=== PATIENT | female | born 1965 | race Caucasian/White ===

== ENCOUNTER 2020-10-15 06:52 | Outpatient (REF) | payer OTHER, SELFPAY ==
[2020-10-15 11:58] LABS: Anion Gap 13 (12-20); Blood Urea Nitrogen 13 mg/dL (9-16); Calcium 9.2 mg/dL (8.4-10.2); Carbon Dioxide 24 mmol/L (22-29); Chloride 107 mmol/L (96-108); Cholesterol 169 mg/dL; Estimated Glomerular Filt Rate > 60; Glucose Fasting 165 mg/dL (60-99); HDL Cholesterol 34 mg/dL; LDL Cholesterol Calculated 90 mg/dl; Potassium 4.1 mmol/l (3.3-5.1); Sodium 140 mmol/L (135-145); Triglycerides 226 mg/dL
[2020-10-15 13:06] LABS: Microalbum/Creatinine Ratio Ur 14.8 ug/mg cr
== END 2020-10-15 06:53 | disposition home or self-care (01) ==
LOC: HO.HMGCLDS 06:52
PROVIDERS: PCP Nurse Practitioner Family; Visit Provider Nurse Practitioner Family
DX: E11.9 Type 2 diabetes mellitus without complications (principal); Z13.29 Encounter for screening for other suspected endocrine disorder
CPT/HCPCS: 36415; 80048; 80061; 82043; 84443

== ENCOUNTER 2020-11-03 | Outpatient (REF) | payer OTHER, SELFPAY | END 2020-11-03 00:01 | disposition home or self-care (01) | LOC: HO.LNP | PROVIDERS: Visit Provider Nurse Practitioner Family | DX: R35.0 Frequency of micturition (principal) | CPT/HCPCS: 87086 ==

== ENCOUNTER 2021-05-06 09:15 | Outpatient (REF) | payer OTHER, SELFPAY ==
[2021-05-06 11:14] LABS: MANUAL DIFF FLAG NO
[2021-05-06 11:25] LABS: Basophils Absolute Auto 0.1 X10*3/uL (0.0-0.2); Basophils Percent Auto 0.9 % (0-2); Eosinophils Absolute Auto 0.2 X10*3/uL (0.0-0.4); Eosinophils Percent Auto 2.2 % (0-4); Hemoglobin 14.5 g/dl (12.0-16.0); Imm Gran Abs Auto 0.02 X10*3/uL (0.00-0.03); Imm Gran Pct Auto 0.3 % (0.0-0.4); Lymphocytes Absolute Auto 2.5 X10*3/uL (1.2-4.9); Lymphocytes Percent Auto 37.3 % (20-40); Mean Corpuscular Hemoglobin 29.3 pg (27.0-33.0); Mean Corpuscular Volume 88.9 fL (80-98); Mean Platelet Volume 9.9 fL (9.4-12.3); Monocytes Absolute Auto 0.5 X10*3/uL (0.1-1.2); Monocytes Percent Auto 7.4 % (2-11); Neutrophils Absolute Auto 3.5 X10*3/uL (2.0-8.3); Neutrophils Percent Auto 51.9 % (45-73); Platelet Count 238 X10*3/uL (160-400); Red Blood Count 4.95 X10*6/uL (4.20-5.50); Red Cell Distribution Width 12.6 % (11.0-16.0); White Blood Count 6.8 X10*3/uL (4.8-10.8)
[2021-05-06 11:47] LABS: Alanine Aminotransferase 40 U/L (0-31); Albumin Level 4.5 g/dL (3.5-5.0); Alkaline Phosphatase 79 U/L (39-117); Anion Gap 13 (12-20); Aspartate Amino Transferase 28 U/L (5-31); Bilirubin Total 0.5 mg/dL (0.0-1.0); Blood Urea Nitrogen 13 mg/dL (9-16); Calcium 9.8 mg/dL (8.4-10.2); Carbon Dioxide 23 mmol/L (22-29); Chloride 107 mmol/L (96-108); Cholesterol 203 mg/dL; Estimated Glomerular Filt Rate > 60; Glucose Fasting 136 mg/dL (60-99); HDL Cholesterol 34 mg/dL; LDL Cholesterol Calculated 108 mg/dl; Potassium 4.2 mmol/L (3.3-5.1); Sodium 139 mmol/L (135-145); Total Protein 7.7 g/dL (6.5-8.0); Triglycerides 305 mg/dL
[2021-05-06 11:55] LABS: Estimated Average Glucose 180 mg/dL; Hemoglobin A1c % 7.9 %
== END 2021-05-06 09:16 | disposition home or self-care (01) ==
LOC: HO.HMGCLDS 09:15
PROVIDERS: PCP Nurse Practitioner Family; Visit Provider Nurse Practitioner Family
DX: M54.2 Cervicalgia (principal); E11.9 Type 2 diabetes mellitus without complications; E78.1 Pure hyperglyceridemia
CPT/HCPCS: 36415; 80053; 80061; 83036; 85025

== ENCOUNTER 2021-05-19 07:46 | Outpatient (REF) | payer OTHER, SELFPAY ==
--- NOTE | ~2021-05-19 | CT_ITS ---
EXAMINATION: CT SOFT TISSUE NECK WITH CONTRAST CLINICAL INFORMATION: 55-year-old with headache, unspecified. COMPARISON: None. TECHNIQUE: Following the intravenous administration of 100 mL of Omnipaque 350 intravenous contrast, helical imaging was performed in the axial plane with generation of coronal and sagittal reformatted images. This CT examination was performed using dose optimization techniques as appropriate, variously including the following: *Automated exposure control *Adjustment of mA and/or kV according to patient size (this includes techniques or standardized protocols for targeted exams where dose is matched to indication/reason for exam; i.e. extremities or head) *Use of iterative reconstruction technique DLP: 404.00 mGy-cm. FINDINGS: Skull Base: The visualized intracranial structures are grossly unremarkable in appearance within the limitations of the study. The bony skull base appears intact. Mastoids and middle ear cavities are unopacified. Paranasal sinuses are unopacified. Suprahyoid Neck: Nasopharyngeal soft tissues, mechanic sound technician and parapharyngeal spaces appear within normal limits. Dental amalgam artifact partially obscures evaluation of the oral cavity and tongue. The base of the tongue and floor of the mouth are otherwise within normal limits. The major salivary glands appear within normal limits. There are small, nonpathologic-appearing bilateral intraparotid lymph nodes with fatty alina. There are multiple nonenlarged bilateral submandibular space and submental space lymph nodes as well as bilateral suprahyoid IJ chain lymph nodes. One lymph node in the right suprahyoid IJ chain appears mildly prominent in size in long axis but not in short axis. The labral tonsils are slightly asymmetric to the left with otherwise normal enhancement. The epiglottis appears within normal limits. There is a mildly enlarged posterior cervical lymph node on the left at the C2-C3 level. Infrahyoid Neck: The hypopharynx, larynx and thyroid gland appear within normal limits. There are multiple very small, nonenlarged bilateral IJ chain lymph nodes. There is a 1.1 x 0.8 cm level 5B lymph node on the left. Adjacent to this is a 1.1 x 0.6 cm level 5B lymph node. There is a 1.3 x 1.0 cm enlarged lymph node at level 5A on the right. Upper Chest: Visualized mediastinal structures are grossly unremarkable. Visualized lung parenchyma is grossly unremarkable. Skeletal: There is lordotic reversal at C5-C6 with multilevel cervical thoracic DDD and spondylosis. Other Comments: None. CT/CT soft tissue neck w con IMPRESSION: 1. Scattered mildly enlarged bilateral cervical lymph nodes at the suprahyoid and infrahyoid levels as described above of indeterminate significance. Recommend clinical follow-up and follow-up CT of the neck to reassess at a clinically appropriate interval. Differential diagnostic considerations include reactive inflammatory, infectious and neoplastic etiologies. 2. No focal soft tissue mass or enhancing primary lesion. 3. Skeletal findings as discussed above.
[2021-05-19] MEDS: iohexoL 350 MG/ML 100 ML INFUS..BTL IV (09:41)
== END 2021-05-19 07:47 | disposition home or self-care (01) ==
LOC: HO.CT 07:46
PROVIDERS: Visit Provider Nurse Practitioner Family
DX: R51.9 Headache, unspecified (principal)
CPT/HCPCS: 70491; Q9967

== ENCOUNTER 2022-01-05 06:42 | Outpatient (REF) | payer OTHER, SELFPAY ==
[2022-01-05 11:29] LABS: MANUAL DIFF FLAG NO
[2022-01-05 11:36] LABS: Appearance Urine CLEAR; Color Urine YELLOW; Glucose Urine UA >=1000 MG/DL (NEG); Leukocyte Esterase Urine NEG (NEG); Nitrite Urine NEG (NEG); PH 5.5 (5.0-8.0); Urine Blood NEG (NEG); Urine Ketones NEG (NEG); Urine Protein NEG (NEG-TRACE)
[2022-01-05 11:39] LABS: Basophils Absolute Auto 0.1 X10*3/uL (0.0-0.2); Basophils Percent Auto 0.9 % (0-2); Eosinophils Absolute Auto 0.2 X10*3/uL (0.0-0.4); Eosinophils Percent Auto 2.7 % (0-4); Hematocrit 41.7 % (37.0-47.0); Hemoglobin 13.5 g/dl (12.0-16.0); Imm Gran Abs Auto 0.01 X10*3/uL (0.00-0.03); Imm Gran Pct Auto 0.1 % (0.0-0.4); Lymphocytes Absolute Auto 2.8 X10*3/uL (1.2-4.9); Mean Corpuscular HGB Conc 32.4 g/dl (31.0-35.0); Mean Corpuscular Hemoglobin 29.2 pg (27.0-33.0); Mean Corpuscular Volume 90.3 fL (80.0-98.0); Mean Platelet Volume 10.4 fL (9.4-12.3); Monocytes Absolute Auto 0.5 X10*3/uL (0.1-1.2); Monocytes Percent Auto 7.6 % (2-11); Neutrophils Absolute Auto 3.2 x10*3/uL (2.0-8.3); Neutrophils Percent Auto 47.7 % (45-73); Platelet Count 219 X10*3/uL (160-400); Red Blood Count 4.62 X10*6/uL (4.20-5.50); Red Cell Distribution Width 12.9 % (11.0-16.0); White Blood Count 6.7 X10*3/uL (4.8-10.8)
[2022-01-05 11:55] LABS: Alanine Aminotransferase 39 U/L (0-31); Albumin Level 4.1 g/dL (3.5-5.0); Alkaline Phosphatase 78 U/L (39-117); Anion Gap 14 (12-20); Aspartate Amino Transferase 21 U/L (5-31); Bilirubin Total 0.3 mg/dL (0.0-1.0); Blood Urea Nitrogen 16 mg/dL (9-16); Calcium 9.3 mg/dL (8.4-10.2); Carbon Dioxide 22 mmol/L (22-29); Chloride 107 mmol/L (96-108); Cholesterol 186 mg/dL; Estimated Glomerular Filt Rate > 60; Glucose Random 184 mg/dL (60-115); HDL Cholesterol 29 mg/dL; LDL Cholesterol Calculated 98 mg/dl; Lipase 67 U/L (8-78); Potassium 4.2 mmol/L (3.3-5.1); Sodium 139 mmol/L (135-145); Total Protein 7.2 g/dL (6.5-8.0); Triglycerides 296 mg/dL
[2022-01-05 11:59] LABS: RBC Urine 0 /HPF (0); WBC Urine 0-2 /HPF (0-4)
[2022-01-05 12:00] LABS: Bacteria Urine TRACE /LPF; Squamous Epithelial Cell Urine TRACE /LPF
[2022-01-05 12:05] LABS: TSH reflex Free T4 2.67 uIU/mL (0.32-4.0)
== END 2022-01-05 06:43 | disposition home or self-care (01) ==
LOC: HO.HMGCLDS 06:42
PROVIDERS: Visit Provider Nurse Practitioner Family
DX: R10.9 Unspecified abdominal pain (principal); E11.9 Type 2 diabetes mellitus without complications; R35.0 Frequency of micturition
CPT/HCPCS: 36415; 80053; 80061; 81001; 83690; 84443; 85025; 87086

== ENCOUNTER 2022-02-12 08:20 | Outpatient (REF) | payer OTHER, SELFPAY ==
--- NOTE | ~2022-02-12 | US_ITS ---
EXAMINATION: US ABDOMEN COMPLETE CLINICAL INFORMATION: Unspecified abdominal pain. COMPARISON: CT abdomen and pelvis 12/17/2007. TECHNIQUE: Real-time imaging of the abdominal viscera. FINDINGS: PANCREAS: Normal. ABDOMINAL AORTA: The proximal, mid, and distal segments are normal in caliber. INFERIOR VENA CAVA: Visualized portions are normal. LIVER: The liver contour is normal. The liver is enlarged with the right lobe measuring 21.3 cm. The parenchyma is diffusely echogenic compatible with steatosis or other hepatocellular disease. The overall increased echogenicity limits tissue penetration and limits evaluation for small lesions, though none are seen. There is no intrahepatic biliary duct dilatation seen. GALLBLADDER: Surgically absent. COMMON BILE DUCT: The common duct measures up to 1 cm in diameter. RIGHT KIDNEY: At the upper pole of the kidney there is a 1.9 x 1.9 x 2.2 cm cyst. No hydronephrosis or renal calculi. The kidney measures 12.7 cm in maximum dimension. LEFT KIDNEY: Normal. No hydronephrosis. No renal calculi or focal parenchymal lesions. The kidney measures 12.9 cm in maximum dimension. SPLEEN: Normal. The spleen measures 9.5 cm in maximum dimension. FREE FLUID: None. US/US abdomen complete IMPRESSION: There is hepatomegaly and steatosis. Dilated common bile duct measures 1 cm in diameter without obstructing lesion seen and there is no intrahepatic duct dilation. This could represent postcholecystectomy change. Correlation could be made with total bilirubin and alkaline phosphatase and if there is concern for obstruction, further evaluation could be made with MRCP or HIDA.
[2022-02-12 11:14] LABS: Appearance Urine CLEAR; Color Urine STRAW; Glucose Urine UA >=1000 MG/DL (NEG); Leukocyte Esterase Urine NEG (NEG); Nitrite Urine NEG (NEG); PH 5.5 (5.0-8.0); Urine Blood NEG (NEG); Urine Ketones NEG (NEG); Urine Protein NEG (NEG-TRACE)
[2022-02-12 12:27] LABS: Bacteria Urine TRACE /LPF
[2022-02-12 12:28] LABS: RBC Urine 0 /HPF (0); Squamous Epithelial Cell Urine TRACE /LPF; WBC Urine 0-2 /HPF (0-4)
== END 2022-02-12 08:21 | disposition home or self-care (01) ==
LOC: HO.HMGCX 08:20
PROVIDERS: Visit Provider Nurse Practitioner Family
DX: R10.9 Unspecified abdominal pain (principal)
CPT/HCPCS: 76700; 81001

== ENCOUNTER 2022-02-16 06:57 | Outpatient (REF) | payer OTHER, SELFPAY ==
[2022-02-16 11:48] LABS: Appearance Urine HAZY; Color Urine YELLOW; Glucose Urine UA >=1000 MG/DL (NEG); Leukocyte Esterase Urine NEG (NEG); Nitrite Urine NEG (NEG); PH 5.5 (5.0-8.0); Urine Blood NEG (NEG); Urine Ketones NEG (NEG); Urine Protein NEG (NEG-TRACE)
[2022-02-16 11:57] LABS: Alanine Aminotransferase 30 U/L (0-31); Albumin Level 4.1 g/dL (3.5-5.0); Alkaline Phosphatase 79 U/L (39-117); Anion Gap 11 (12-20); Aspartate Amino Transferase 18 U/L (5-31); Bilirubin Direct < 0.2 mg/dL (0.0-0.5); Bilirubin Total 0.4 mg/dL (0.0-1.0); Blood Urea Nitrogen 15 mg/dL (9-16); Calcium 9.5 mg/dL (8.4-10.2); Carbon Dioxide 26 mmol/L (22-29); Chloride 106 mmol/L (96-108); Estimated Glomerular Filt Rate > 60; Glucose Random 177 mg/dL (60-115); Potassium 4.2 mmol/L (3.3-5.1); Sodium 139 mmol/L (135-145); Total Protein 7.2 g/dL (6.5-8.0)
[2022-02-16 12:06] LABS: Squamous Epithelial Cell Urine 2+ /LPF
[2022-02-16 12:07] LABS: WBC Urine 0 /HPF (0-4)
== END 2022-02-16 06:58 | disposition home or self-care (01) ==
LOC: HO.HMGCLDS 06:57
PROVIDERS: Visit Provider Nurse Practitioner Family
DX: R10.9 Unspecified abdominal pain (principal)
CPT/HCPCS: 36415; 80053; 81001; 82248

== ENCOUNTER 2022-06-09 10:27 | Outpatient (REF) | payer OTHER, SELFPAY ==
[2022-06-09 14:04] LABS: MANUAL DIFF FLAG NO
[2022-06-09 14:10] LABS: Appearance Urine Clear; Color Urine Yellow; Glucose Urine UA >=1000 mg/dL (Negative); Leukocyte Esterase Urine Negative (Negative); Nitrite Urine Negative (Negative); Specific Gravity - Urine >= 1.030 (1.005-1.025); Urine Blood Negative (Negative); Urine Ketones Negative (Negative); Urine Protein Negative (Neg-Trace)
[2022-06-09 14:19] LABS: Basophils Absolute Auto 0.1 X10*3/uL (0.0-0.2); Basophils Percent Auto 1.1 % (0-2); Eosinophils Absolute Auto 0.2 X10*3/uL (0.0-0.4); Eosinophils Percent Auto 2.5 % (0-4); Hematocrit 44.1 % (37.0-47.0); Hemoglobin 14.3 g/dl (12.0-16.0); Imm Gran Abs Auto 0.02 X10*3/uL (0.00-0.03); Imm Gran Pct Auto 0.3 % (0.0-0.4); Lymphocytes Absolute Auto 2.4 X10*3/uL (1.2-4.9); Lymphocytes Percent Auto 37.8 % (20-40); Mean Corpuscular HGB Conc 32.4 g/dl (31.0-35.0); Mean Corpuscular Hemoglobin 29.1 pg (27.0-33.0); Mean Corpuscular Volume 89.6 fL (80.0-98.0); Mean Platelet Volume 10.5 fL (9.4-12.3); Monocytes Absolute Auto 0.4 X10*3/uL (0.1-1.2); Neutrophils Absolute Auto 3.4 x10*3/uL (2.0-8.3); Neutrophils Percent Auto 52.3 % (45-73); Platelet Count 218 X10*3/uL (160-400); Red Blood Count 4.92 X10*6/uL (4.20-5.50); Red Cell Distribution Width 12.7 % (11.0-16.0); White Blood Count 6.5 X10*3/uL (4.8-10.8)
[2022-06-09 14:27] LABS: Estimated Average Glucose 192 mg/dL; Hemoglobin A1c % 8.3 %
[2022-06-09 14:34] LABS: Bacteria Urine 1+ (None Seen); Hyaline Casts Urine 0-2 /LPF (0-2); RBC Urine 0-2 /HPF (0-2); Squamous Epithelial Cell Urine 0-2 /HPF (0-2)
[2022-06-09 14:35] LABS: UACC Culture Trigger YES
[2022-06-09 14:39] LABS: Alanine Aminotransferase 39 U/L (0-31); Albumin Level 4.6 g/dL (3.5-5.0); Alkaline Phosphatase 78 U/L (39-117); Anion Gap 16 (12-20); Aspartate Amino Transferase 26 U/L (5-31); Bilirubin Total 0.4 mg/dL (0.0-1.0); Blood Urea Nitrogen 14 mg/dL (9-16); Calcium 9.6 mg/dL (8.4-10.2); Carbon Dioxide 24 mmol/L (22-29); Chloride 106 mmol/L (96-108); Cholesterol 206 mg/dL; Estimated Glomerular Filt Rate > 60; Glucose Fasting 128 mg/dL (60-99); HDL Cholesterol 33 mg/dL; LDL Cholesterol Calculated 108 mg/dl; Potassium 4.2 mmol/L (3.3-5.1); Sodium 142 mmol/L (135-145); Triglycerides 326 mg/dL
[2022-06-09 14:51] LABS: Creatinine Urine 52.16 mg/dL; Microalbumin Urine < 5.0 mg/L
[2022-06-09 14:52] LABS: TSH reflex Free T4 1.34 uIU/mL (0.32-4.0)
== END 2022-06-09 10:28 | disposition home or self-care (01) ==
LOC: HO.HMGCLDS 10:27
PROVIDERS: PCP Nurse Practitioner Family; Visit Provider Nurse Practitioner Family
DX: E11.9 Type 2 diabetes mellitus without complications (principal); R00.2 Palpitations
CPT/HCPCS: 36415; 80053; 80061; 81001; 81003; 82043; 83036; 84443; 85025; 87086

== ENCOUNTER → 2022-07-01 11:20 | Outpatient (REF) | payer OTHER, SELFPAY ==
--- NOTE | 2022-07-01 11:25 | HM_ITS ---
* Total monitoring time 2 days and 23 hours. * Underlying rhythm is sinus with an average ventricular rate of 80/Min. Range 63 to 108/Min. * Very rare supraventricular and ventricular ectopy. * No significant arrhythmias. * Symptoms in patient diary correlate with sinus rhythm. MTDD
== END ==
LOC: HO.CARD 11:20
PROVIDERS: PCP Nurse Practitioner Family; Visit Provider Nurse Practitioner Family
DX: R00.2 Palpitations (principal)
CPT/HCPCS: 93242

== ENCOUNTER 2022-09-23 10:47 | Outpatient (REF) | payer OTHER, SELFPAY ==
--- NOTE | ~2022-09-23 | US_ITS ---
EXAMINATION: US VENOUS ULTRASOUND WITH DOPPLER LOWER EXTREMITY, RIGHT CLINICAL INFORMATION: Right leg pain COMPARISON: None TECHNIQUE: Ultrasound of the deep veins is performed from the hip to the calf with compression sonography and color and pulse Doppler assessment. Spectral analysis with color-flow imaging is performed. FINDINGS: There is normal venous compression and respiratory variation and augmented flow. The visualized common femoral vein, superficial femoral vein, profunda femoral vein, popliteal vein, and the trifurcation region shows no evidence of deep venous thrombosis. There is no significant popliteal fossa cyst. If the patient's symptoms persist, followup ultrasound in 5 days 7 days might be of value to exclude proximal propagation from a non-visualized calf vein. US/US venous duplex LE RT IMPRESSION: No DVT demonstrated in the right lower extremity.
== END 2022-09-23 10:48 | disposition home or self-care (01) ==
LOC: HO.HMGCX 10:47
PROVIDERS: PCP Nurse Practitioner Family; Visit Provider Physician Assistant
DX: M79.604 Pain in right leg (principal)
CPT/HCPCS: 93971

== ENCOUNTER 2023-01-20 10:23 | Outpatient (REF) | payer OTHER, SELFPAY ==
[2023-01-20 14:11] LABS: MANUAL DIFF FLAG NO
[2023-01-20 14:14] LABS: Appearance Urine Clear; Color Urine Yellow; Glucose Urine UA >=1000 mg/dL (Negative); Leukocyte Esterase Urine Negative (Negative); Nitrite Urine Negative (Negative); PH 5.5 (5.0-9.0); Specific Gravity - Urine 1.025 (1.005-1.025); UMIC TRIGGER UACC YES; Urine Blood Negative (Negative); Urine Ketones Negative (Negative); Urine Protein Negative (Neg-Trace)
[2023-01-20 14:19] LABS: Basophils Absolute Auto 0.1 X10*3/uL (0.0-0.2); Basophils Percent Auto 0.7 % (0-2); Eosinophils Absolute Auto 0.2 X10*3/uL (0.0-0.4); Eosinophils Percent Auto 2.3 % (0-4); Hematocrit 43.5 % (37.0-47.0); Imm Gran Abs Auto 0.03 X10*3/uL (0.00-0.03); Imm Gran Pct Auto 0.4 % (0.0-0.4); Lymphocytes Absolute Auto 2.4 X10*3/uL (1.2-4.9); Lymphocytes Percent Auto 35.4 % (20-40); Mean Corpuscular HGB Conc 32.2 g/dl (31.0-35.0); Mean Corpuscular Hemoglobin 29.4 pg (27.0-33.0); Mean Corpuscular Volume 91.4 fL (80.0-98.0); Mean Platelet Volume 10.4 fL (9.4-12.3); Monocytes Absolute Auto 0.4 X10*3/uL (0.1-1.2); Neutrophils Absolute Auto 3.8 x10*3/uL (2.0-8.3); Neutrophils Percent Auto 55.2 % (45-73); Platelet Count 242 X10*3/uL (160-400); Red Blood Count 4.76 X10*6/uL (4.20-5.50); Red Cell Distribution Width 12.5 % (11.0-16.0); White Blood Count 6.9 X10*3/uL (4.8-10.8)
[2023-01-20 14:23] LABS: Bacteria Urine None Seen (None Seen); Hyaline Casts Urine 0-2 /LPF (0-2); RBC Urine 0-2 /HPF (0-2); Squamous Epithelial Cell Urine 0-2 /HPF (0-2); WBC Urine 0-5 /HPF (0-5)
[2023-01-20 14:49] LABS: Estimated Average Glucose 160 mg/dL; Hemoglobin A1c % 7.2 %
[2023-01-20 14:53] LABS: Alanine Aminotransferase 26 U/L (0-31); Albumin Level 4.4 g/dL (3.5-5.0); Alkaline Phosphatase 77 U/L (39-117); Anion Gap 15 (12-20); Aspartate Amino Transferase 19 U/L (5-31); Bilirubin Total 0.5 mg/dL (0.0-1.0); Blood Urea Nitrogen 17 mg/dL (9-16); Calcium 9.5 mg/dL (8.4-10.2); Carbon Dioxide 25 mmol/L (22-29); Chloride 106 mmol/L (96-108); Cholesterol 185 mg/dL; Estimated Glomerular Filt Rate > 60; Glucose Fasting 74 mg/dL (60-99); HDL Cholesterol 32 mg/dL; LDL Cholesterol Calculated 105 mg/dl; Potassium 4.1 mmol/L (3.3-5.1); Sodium 142 mmol/L (135-145); Total Protein 7.3 g/dL (6.5-8.0); Triglycerides 242 mg/dL
[2023-01-20 14:56] LABS: TSH reflex Free T4 1.29 uIU/mL (0.32-4.0)
== END 2023-01-20 10:24 | disposition home or self-care (01) ==
LOC: HO.HMGCLDS 10:23
PROVIDERS: PCP Nurse Practitioner Family; Visit Provider Nurse Practitioner Family
DX: E11.9 Type 2 diabetes mellitus without complications (principal)
CPT/HCPCS: 36415; 80053; 80061; 81001; 83036; 84443; 85025

== ENCOUNTER 2023-05-24 08:14 | Outpatient (AMB) | payer OTHER, SELFPAY ==
[2023-05-24 08:33] VITALS: BP 110/68; PULSE 74; O2SAT 97; BMI 41.5
--- NOTE | 2023-05-24 08:33 | MHC.PC.OV ---
Vital Signs 05/24/23 08:33 Height 5 ft 5 in Weight 249 lb 8 oz BMI 41.5 BP 110/68 Blood Pressure Location Lt brachial Position Sitting Pulse 74 Pulse Source Pulse Oximeter Pulse Oximetry (%) 97 Oxygen Delivery Method Room Air Intake Visit Reasons: 4m follow up Allergies Penicillins [PENICILLINS] Allergy (Intermediate, Verified 05/24/23 08:36) RASH penicillamine Allergy (Unknown, Verified 05/24/23 08:36) Unknown penicillin V Allergy (Unknown, Verified 05/24/23 08:36) hives, rash, diarrhea codeine [CODEINE] Adverse Reaction (Severe, Verified 05/24/23 08:36) STOMACH PAIN Sulfa (Sulfonamide Antibiotics) [SULFA(SULFONAMIDE ANTIBIOTICS)] Adverse Reaction (Intermediate, Verified 05/24/23 08:36) VOMITING Tobacco use date assessed: 05/24/23 Dental Screening Dental Screen Date: 05/24/23 Did you have a dental visit in the last 12 months?: Yes Did you have a dental problem in the last 6 months where you did not have access to dental care?: No Was dental information given to patient?: Patient has dentist HPI 4m follow up HPI Details Pt is a diabetic, on an DARLEEN. A1C in office today is 7.3. Due for microalbumin. Denies polyuria, polydipsia, and neuropathy. Pt denies any signs and symptoms of hypoglycemia and does know how to correct it. Eye exam is up to date. Pt is having a right knee replacement on 06/24. we will increase her long acting insulin from 84 units to 86 units. Explained to pt she can go up, 2 more units, if need be, depending on her sugar values. 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 Rangel Hoover, Jasmina Eller, Jeovanny Rosa and colleagues, with an educational evan from [employer]. Review of Systems Const Reports as per HPI Physical exam (Primary Care) Vital Signs: Last Vital Signs Pulse 74 05/24/23 08:33 BP 110/68 05/24/23 08:33 Pulse Ox 97 05/24/23 08:33 Oxygen Delivery Method Room Air 05/24/23 08:33 BMI result Body Mass Index 41.5 Tobacco/Smoking Status: Tobacco use Status Tobacco use date assessed 05/24/23 05/24/23 08:37 Patient Tobacco Use Status Former Tobacco user 05/24/23 08:37 e-Cigarette/Vaping Use Never Used 05/24/23 08:37 Thrive Assessment: Date of Thrive Assessment Date Thrive assessed 01/20/23 05/24/23 08:37 Const General: cooperative Nutritional Appearance: obese morbidly obese Orientation/consciousness: patient oriented x3 Resp Effort & Inspection: normal respiratory effort Auscultation: clear to auscultation bilaterally Cardio Rate: regular rate Rhythm: regular rhythm Heart sounds: S1 normal heart sound present and S2 normal heart sound present Neuro General: patient oriented x3 Extrem Other: bilat feet: + sensation with use of monofilament Right lower extremity: no edema Left lower extremity: no edema Psych Appearance: grossly normal Mental Status: mental status grossly normal Speech and movement: Normal speech and movement present Affect: normal affect Attitude: cooperative Thought process: Normal thought process present Thought content: Normal thought content present Insight: Good insight present (Psych) Judgement: Good judgement present (Psych) Results AMB Hemoglobin A1c AMB Hemoglobin A1c 7.3 % Last Edit by Lynne Ridley CMA on 05/24/23 08:54 Results Reviewed Results Reviewed: Laboratory Last Values Hgb A1c (Clinic) 7.3 % (4.0-6.0) H 05/24/23 08:51 Assessment and Plan Assessment & Plan (1) Diabetes: Code(s): E11.9 - Type 2 diabetes mellitus without complications Plan The patient agreed to the use of a medical laboratory technical officer for this encounter. Scribed for ADRIANA Damon by Whit Jamaal, medical laboratory technical officer, on 05/24/2023 at 09:00 EST. Orders: Orders Comprehensive [place]. Panel Fast Today E11.9 - Type 2 diabetes mellitus without complications Lipid Panel Today E11.9 - Type 2 diabetes mellitus without complications TSH reflex Free T4 Today E11.9 - Type 2 diabetes mellitus without complications Microalbumin, Random (w Creat) Today E11.9 - Type 2 diabetes mellitus without complications Complete Blood Count Auto Diff Today E11.9 - Type 2 diabetes mellitus without complications UA CC w/rflx Micro + Cult Today E11.9 - Type 2 diabetes mellitus without complications AMB Hemoglobin A1c Today E11.9 - Type 2 diabetes mellitus without complications Coding Level of Care Code Est Pt Level 3 (66214) Diagnoses Diabetes E11.9
== END 2023-05-24 09:16 | disposition home or self-care (01) ==
PROVIDERS: PCP Nurse Practitioner Family; Visit Provider Nurse Practitioner Family
DX: E11.9 Type 2 diabetes mellitus without complications (principal)
CPT/HCPCS: 83036; 99213

== ENCOUNTER 2023-10-22 06:34 | Outpatient (REF) | payer OTHER, SELFPAY ==
[2023-10-22 11:29] LABS: MANUAL DIFF FLAG NO
[2023-10-22 11:36] LABS: Appearance Urine Clear; Color Urine Yellow; Glucose Urine UA >=1000 mg/dL (Negative); Leukocyte Esterase Urine Negative (Negative); Nitrite Urine Negative (Negative); Specific Gravity - Urine >= 1.030 (1.005-1.025); UMIC TRIGGER UACC YES; Urine Blood Negative (Negative); Urine Ketones Negative (Negative); Urine Protein Negative (Neg-Trace)
[2023-10-22 11:41] LABS: Bacteria Urine 1+ (None Seen); Hyaline Casts Urine 0-2 /LPF (0-2); RBC Urine 0-2 /HPF (0-2); Squamous Epithelial Cell Urine 0-2 /HPF (0-2); UACC Culture Trigger YES
[2023-10-22 11:47] LABS: Basophils Absolute Auto 0.1 X10*3/uL (0.0-0.2); Basophils Percent Auto 0.8 % (0-2); Eosinophils Absolute Auto 0.2 X10*3/uL (0.0-0.4); Eosinophils Percent Auto 2.6 % (0-4); Hematocrit 44.2 % (37.0-47.0); Hemoglobin 14.1 g/dl (12.0-16.0); Imm Gran Abs Auto 0.02 X10*3/uL (0.00-0.03); Imm Gran Pct Auto 0.3 % (0.0-0.4); Lymphocytes Absolute Auto 2.2 X10*3/uL (1.2-4.9); Lymphocytes Percent Auto 35.8 % (20-40); Mean Corpuscular HGB Conc 31.9 g/dl (31.0-35.0); Mean Corpuscular Hemoglobin 28.7 pg (27.0-33.0); Mean Corpuscular Volume 89.8 fL (80.0-98.0); Mean Platelet Volume 10.3 fL (9.4-12.3); Monocytes Absolute Auto 0.5 X10*3/uL (0.1-1.2); Monocytes Percent Auto 7.3 % (2-11); Neutrophils Absolute Auto 3.3 x10*3/uL (2.0-8.3); Neutrophils Percent Auto 53.2 % (45-73); Platelet Count 263 X10*3/uL (160-400); Red Blood Count 4.92 X10*6/uL (4.20-5.50); Red Cell Distribution Width 13.3 % (11.0-16.0); White Blood Count 6.3 X10*3/uL (4.8-10.8)
[2023-10-22 12:00] LABS: Creatinine Urine 79.72 mg/dL
[2023-10-22 12:00] LABS: Alanine Aminotransferase 51 U/L (0-31); Albumin Level 4.3 g/dL (3.5-5.0); Alkaline Phosphatase 80 U/L (39-117); Anion Gap 16 (12-20); Aspartate Amino Transferase 45 U/L (5-31); Bilirubin Total 0.4 mg/dL (0.0-1.0); Blood Urea Nitrogen 12 mg/dL (9-16); Calcium 9.7 mg/dL (8.4-10.2); Carbon Dioxide 24 mmol/L (22-29); Chloride 105 mmol/L (96-108); Cholesterol 128 mg/dL (<200); Estimated Glomerular Filt Rate > 60; Glucose Fasting 144 mg/dL (60-99); HDL Cholesterol 32 mg/dL (>40); LDL Cholesterol Calculated 56 mg/dL (<100); Sodium 141 mmol/L (135-145); Total Protein 7.7 g/dL (6.5-8.0); Triglycerides 202 mg/dL (<150)
[2023-10-22 12:02] LABS: WBC Urine 0-5 /HPF (0-5)
[2023-10-22 12:16] LABS: TSH reflex Free T4 1.73 uIU/mL (0.32-4.0)
== END 2023-10-22 06:35 | disposition home or self-care (01) ==
LOC: HO.HMGCLDS 06:34
PROVIDERS: PCP Nurse Practitioner Family; Visit Provider Nurse Practitioner Family
DX: E11.9 Type 2 diabetes mellitus without complications (principal)
CPT/HCPCS: 36415; 80053; 80061; 81001; 82043; 82570; 84443; 85025

== ENCOUNTER 2023-11-22 16:09 | Outpatient (AMB) | payer OTHER, SELFPAY ==
[2023-11-22 16:11] VITALS: BP 112/66; PULSE 72; O2SAT 98; BMI 40.8
--- NOTE | 2023-11-22 16:11 | MHC.PC.OV ---
Vital Signs 11/22/23 16:11 Height 5 ft 5 in Weight 245 lb 2 oz BMI 40.8 BP 112/66 Blood Pressure Location Rt brachial Position Sitting Pulse 72 Pulse Source Pulse Oximeter Pulse Oximetry (%) 98 Oxygen Delivery Method Room Air Intake Visit Reasons: Annual PE Intake Note: pt is here for physical exam Vp Customer Service Required: No Accompanied by: Self / Same As Patient Allergies Penicillins [PENICILLINS] Allergy (Intermediate, Verified 11/22/23 18:46) RASH penicillamine Allergy (Unknown, Verified 11/22/23 18:46) Unknown penicillin V Allergy (Unknown, Verified 11/22/23 18:46) hives, rash, diarrhea codeine [CODEINE] Adverse Reaction (Severe, Verified 11/22/23 18:46) STOMACH PAIN Sulfa (Sulfonamide Antibiotics) [SULFA(SULFONAMIDE ANTIBIOTICS)] Adverse Reaction (Intermediate, Verified 11/22/23 18:46) VOMITING Medication List - Last Reconciled 11/22/23 by GORGE Torrez-MANPREET bempedoic acid-ezetimibe 180-10 mg 1 tab PO DAILY 90 days dulaglutide 4.5 mg (0.5 mL) subcut QWEEK empagliflozin (Jardiance) 25 mg PO DAILY 90 days glipizide ER 10 mg PO QAM insulin degludec 84 units (0.84 mL) subcut DAILY lactobacillus combo no.11 (Probiotic) 1 cap PO DAILY lisinopril 20 mg PO DAILY 90 days metoprolol succinate ER 50 mg PO DAILY Tobacco use date assessed: 11/22/23 Dental Screening Dental Screen Date: 11/22/23 Did you have a dental visit in the last 12 months?: Yes Did you have a dental problem in the last 6 months where you did not have access to dental care?: No Was dental information given to patient?: Patient has dentist HPI Annual PE HPI Details Pt is here for a PE. Will order labs. Colon screen is up to date. Mammo is up to date according to pt. 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 Pt is a diabetic, on an DARLEEN. A1C in office today is 8.2. Microalbumin is up to date. Denies polyuria, polydipsia, and neuropathy. Pt denies any signs and symptoms of hypoglycemia and does know how to correct it. Pt reports that her blood sugar has been ranging from 135-160s in the morning. Will increase tresiba from U-100 84-86 units to U-200 90 units. Eye exam is up to date. encouraged weight loss, multiple weighs to lose weight discussed. [facility] Medical History Rosacea Diabetes Surgical History Status post total right knee replacement Social History Housing: House Alcohol intake: current Alcohol intake frequency: does not drink Patient Tobacco Use Status: Former Tobacco user Years Smoked: 40 years ago e-Cigarette/Vaping Use: Never Used Second Hand Smoke Exposure: No service: No Current occupational status: employed Current occupation: [employer] Current occupational exposures/hazards: No Cognitive needs: No Hearing needs: No Vision needs: No Questionnaire PHQ-9 Over the last 2 weeks, how often have you been bothered by any of the following problems? 1. Little interest or pleasure in doing things: not at all 2. Feeling down, depressed, or hopeless: not at all 3. Trouble falling or staying asleep, or sleeping too much: several days 4. Feeling tired or having little energy: several days 5. Poor appetite or overeating: not at all 6. Feeling bad about yourself - or that you are a failure or have let yourself or your family down: not at all 7. Trouble concentrating on things, such as reading the newspaper or watching television: not at all 8. Moving or speaking so slowly that other people could have noticed. Or the opposite - being so fidgety or restless that you have been moving around a lot more than usual: not at all 9. Thoughts that you would be better off or of hurting yourself in some way: not at all Total score: 2 Depression Screening Interpretation: Negative Depression Screening Done: Yes 74066 - PHQ-9 Billing: Yes Source: Developed by Drs. Rangel Hoover, Jasmina Eller, Jeovanny Rosa and colleagues, with an educational evan from [employer]. Thrive Questionnaire Date Thrive assessed: 02/20/24 I am a: Patient What is your living situation today?: I have a steady place to live Within the past 12 months, did the food you bought not last and you didn't have the money to get more?: Never true Within the past 12 months, did you worry whether your food would run out before you got money to buy more?: Never true Do you have trouble paying for medicines?: No Do you have trouble getting transportation to medical appointments?: No Do you have trouble paying your heating and electricity bill?: No Do you have trouble taking care of your child, family member or friend?: No Do you have trouble with day-to-day activities such as bathing, preparing meals, shopping, managing finances, etc.?: No Are you currently unemployed and looking for a job?: No Are you interested in more education?: No Please select the resources that you would like help with: None Currently or been in a relationship where the following occur: no concerns reported THRIVE Score: 0 AUDIT C Alcohol Use Questionnaire (AUDIT-C) 1. How often do you have a drink containing alcohol?: Monthly or less 2. How many drinks containing alcohol do you have on a typical day when you are drinking?: 1 or 2 3. How often do you have six or more drinks on one occasion?: Never Total Score: 1 Score Reviewed/Action Taken: Yes LYN-7 AMB Questionnaire LYN-7 Date LYN - 7 assessed: 11/22/23 Feeling nervous, anxious, or on edge: 0 = Not at all Not being able to stop or control worryin = Not at all Worrying too much about different things: 0 = Not at all Trouble relaxin = Several days Being so restless that it is hard to sit still: 0 = Not at all Becoming easily annoyed or irritable: 0 = Not at all Feeling afraid as if something awful might happen: 0 = Not at all Total LYN-7 score (0-4 normal; 5-9 mild; 10-14 moderate; 15-21 severe): 1 Source: Developed by Drs. Rangel Hoover, Jasmina Eller, Jeovanny Rosa and colleagues, with an educational evan from [employer]. LYN-7 Assessment Billing LYN-7 Assessment Tool: LYN-7 Assessment 50356 Review of Systems Const Denies chills and Denies fever(s) Eyes Denies blurry vision ENT Denies vertigo, Denies dizziness and Denies sore throat Card Denies chest pain at rest, Denies chest pain with activity, Denies diaphoresis, Denies dyspnea and Denies dyspnea on exertion Resp Denies cough, Denies dyspnea, Denies dyspnea on exertion and Denies wheezing GI Denies abdominal pain, Denies melena, Denies hematochezia, Denies constipation, Denies diarrhea and Denies loose stools Denies hematuria Musc Denies numbness and Denies tingling Skin/Breast Denies lesions Neuro Denies vertigo, Denies dizziness, Denies numbness and Denies tingling Psych Denies anxiety, Denies depression, Denies homicidal ideation, Denies suicidal ideation and Denies other (substance abuse) Aller/Immun Denies wheezing Physical exam (Primary Care) Vital Signs: Last Vital Signs Pulse 72 11/22/23 16:11 BP 112/66 11/22/23 16:11 Pulse Ox 98 11/22/23 16:11 Oxygen Delivery Method Room Air 11/22/23 16:11 BMI result Body Mass Index 40.8 Tobacco/Smoking Status: Tobacco use Status Tobacco use date assessed 11/22/23 11/22/23 16:15 Patient Tobacco Use Status Former Tobacco user 11/22/23 16:15 e-Cigarette/Vaping Use Never Used 11/22/23 16:15 PHQ-9: PHQ-9 Score PHQ-9: Total score 2 11/22/23 16:33 Depression Screening Interpretation: Negative Thrive Assessment: Date of Thrive Assessment Date Thrive assessed 11/22/23 11/22/23 16:15 Currently or been in a relationship where the following occur: no concerns reported Const General: cooperative Nutritional Appearance: obese morbidly obese Orientation/consciousness: patient oriented x3 HENMT Head: Yes normal to inspection, Yes normocephalic and Yes atraumatic Ears: TM's normal bilaterally Eyes General: appearance normal, both eyes and all related structures Alignment and Position: alignment normal and position normal Neck Neck: Yes normal visual inspection and Yes no lymphadenopathy Thyroid: Thyroid normal Resp Effort & Inspection: normal respiratory effort Auscultation: clear to auscultation bilaterally Cardio Rate: regular rate Rhythm: regular rhythm Heart sounds: S1 normal heart sound present, S2 normal heart sound present and no murmurs GI Palpation (GI): Soft to palpation and nontender Auscultation: normal bowel sounds Skin Rashes: no rashes Neuro General: patient oriented x3, moves all extremities, no focal motor deficits and deep tendon reflexes 2+ bilaterally Romberg Test: Negative Extrem Other: bilat feet: + sensation with use of monofilament, feet intact Psych Appearance: grossly normal Mental Status: mental status grossly normal Speech and movement: Normal speech and movement present Affect: normal affect Attitude: cooperative Thought process: Normal thought process present Thought content: Normal thought content present Insight: Good insight present (Psych) Judgement: Good judgement present (Psych) Results AMB Hemoglobin A1c AMB Hemoglobin A1c 8.2 % Last Edit by Christian Crump CMA on 11/22/23 16:38 Results Reviewed Results Reviewed: Laboratory Last Values Hgb A1c (Clinic) 8.2 % (4.0-6.0) H 11/22/23 16:37 Assessment and Plan Assessment & Plan (1) Diabetes: Code(s): E11.9 - Type 2 diabetes mellitus without complications Plan: Labs ordered, weight loss encouraged. went over multiple ways to lose weight (counting calories/macros, intermittent fasting 16-8 hrs, portion sizes) (2) Physical exam: Code(s): Z00.00 - Encounter for general adult medical examination without abnormal findings Plan: Labs ordered Plan The patient agreed to the use of a biomedical equipment technician for this encounter. Scribed for ADRIANA Damon by Whit Hinton biomedical equipment technician, on 11/22/2023 at 16:50 EST. Orders: Orders AMB Hemoglobin A1c Today Z13.9 - Encounter for screening, unspecified Comprehensive [place]. Panel Fast Today E11.9 - Type 2 diabetes mellitus without complications, Z00.00 - Encounter for general adult medical examination without abnormal findings UA CC w/rflx Micro + Cult Today E11.9 - Type 2 diabetes mellitus without complications, Z00.00 - Encounter for general adult medical examination without abnormal findings Lipid Panel Today E11.9 - Type 2 diabetes mellitus without complications, Z00.00 - Encounter for general adult medical examination without abnormal findings Complete Blood Count Auto Diff Today E11.9 - Type 2 diabetes mellitus without complications, Z00.00 - Encounter for general adult medical examination without abnormal findings TSH reflex Free T4 Today E11.9 - Type 2 diabetes mellitus without complications, Z00.00 - Encounter for general adult medical examination without abnormal findings Medications: New insulin degludec (Tresiba FlexTouch U-200 insulin) 90 units (0.45 mL) subcut BEDTIME 90 days 40.5 mL 0RF Discontinued insulin degludec Discontinued Reason: Doctor's Order 84 units (0.84 mL) subcut DAILY 30 mL 5RF E11.9 - Type 2 diabetes mellitus without complications Coding Level of Care Code Est Pt Prev Care 40-64y(45721) Diagnoses Diabetes E11.9 Physical exam Z00.00 Additional Codes LYN-7 Assessment Billing - LYN-7 Assessment Tool: LYN-7 Assessment [id number] ([id number])
== END 2023-11-22 17:19 | disposition home or self-care (01) ==
PROVIDERS: PCP Nurse Practitioner Family; Visit Provider Nurse Practitioner Family
DX: Z00.00 Encounter for general adult medical examination without abnormal findings (principal); E11.9 Type 2 diabetes mellitus without complications
CPT/HCPCS: 83036; 99396

== ENCOUNTER 2024-03-07 19:33 | Emergency (ER) | payer OTHER, SELFPAY ==
--- NOTE | ~2024-03-07 | XR_ITS ---
EXAMINATION: XR FOOT, LEFT CLINICAL INFORMATION: Pain COMPARISON: None available. TECHNIQUE: AP, lateral, and oblique views of the left foot. FINDINGS: Bone alignment is normal. No fracture or dislocation. Small osteophytes at the naviculocuneiform joint. Calcaneal spurs. Mild diffuse soft tissue swelling over the midfoot/metatarsal bones. XR/XR foot LT min 3V IMPRESSION: Soft tissue swelling. Mild degenerative changes at the navicular cuneiform joints. Calcaneal spurs.
--- NOTE | 2024-03-07 19:34 | ED_ITS ---
HPI - General Adult General Chief complaint: Extremity Injury, Lower Stated complaint: Foot pain since yesterday Time Seen by Provider: 03/07/24 23:13 Source: patient, RN notes reviewed and old records reviewed Mode of arrival: ambulatory Limitations: no limitations History of Present Illness ED Provider: Selin HPI narrative: 58 old female presents for evaluation of left foot pain. She states that she was walking yesterday on a flat surface. She states that she did not trip or fall but when she planted on occasion she felt a sharp pain in her left foot around the midfoot The pain is worse with walking and applying weight. The pain does not radiate but stays in the middle of the foot, mostly to the top portion Denies any ankle pain or left leg pain. She denies any history of similar pains. No other complaints or concerns at this time Related Data Home Medications ?Medication ?Instructions ?Recorded ?Confirmed lactobacillus combo no.11 15 1 cap PO DAILY 05/06/21 11/22/23 billion cell sprinkle capsule (Probiotic) glipizide 10 mg tablet, extended 10 mg PO QAM 01/04/22 11/22/23 release 24 hr Previous Rx's ?Medication ?Instructions ?Recorded bempedoic acid 180 mg-ezetimibe 10 1 tab PO DAILY 90 days #90 tabs 11/01/23 mg tablet metoprolol succinate 50 mg 50 mg PO DAILY #90 tabs 11/27/23 tablet,extended release 24 hr empagliflozin 25 mg tablet 25 mg PO DAILY 90 days #90 tabs 12/28/23 (Jardiance) semaglutide 0.25 mg or 0.5 mg (2 0.25 mg (0.368 mL) subcut QWEEK #3 02/07/24 mg/3 mL) subcutaneous pen injector mL (Ozempic) insulin degludec 200 unit/mL (3 98 unit (0.49 mL) subcut BEDTIME 02/09/24 mL) subcutaneous pen (Tresiba #45 mL FlexTouch U-200 insulin) lisinopril 20 mg tablet 20 mg PO DAILY 90 days #90 tabs 02/21/24 Allergies Allergy/AdvReac Type Severity Reaction Status Date / Time Penicillins [PENICILLINS] Allergy Intermediate RASH Verified 03/07/24 19:36 penicillamine Allergy Unknown Unknown Verified 03/07/24 19:36 penicillin V Allergy Unknown hives, Verified 03/07/24 19:36 rash, diarrhea codeine [CODEINE] AdvReac Severe STOMACH Verified 03/07/24 19:36 PAIN Sulfa (Sulfonamide AdvReac Intermediate VOMITING Verified 03/07/24 19:36 Antibiotics) [SULFA(SULFONAMIDE ANTIBIOTICS)] Review of Systems Constitutional: Constitutional: Denies body ache(s), Denies chills and Denies fever(s) Cardiovascular: Cardiovascular: Denies chest pain and Denies dyspnea Respiratory: Respiratory: Denies cough and Denies dyspnea Musculoskeletal: Musculoskeletal: Reports arthralgias, Reports joint swelling and Reports limited range of motion Integumentary/Breasts: Skin/Breast: Denies erythema PMFSH Past Medical History Medical History Rosacea Diabetes Surgical History Status post total right knee replacement Social History Social History Housing: House Alcohol intake: current Alcohol intake frequency: does not drink Patient Tobacco Use Status: Former Tobacco user Years Smoked: 40 years ago e-Cigarette/Vaping Use: Never Used Second Hand Smoke Exposure: No Advance Directives: No Advance Directives Information Provided: No Do you have a plan to hurt others: No Plan service: No Current occupational status: employed 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 [employer] Current occupational exposures/hazards: No Cognitive needs: No Hearing needs: No Vision needs: No Physical Exam ED Vital Signs: Vital Signs - 24 hr 03/07/24 19:35 03/07/24 22:14 03/07/24 23:44 Temperature 97.4 F 98.4 F 98.2 F Pulse Rate 83 78 77 Respiratory Rate 16 16 18 Blood Pressure 136/91 H 126/61 143/74 H Pulse Oximetry 93 95 93 Oxygen Delivery Method Room Air Room Air Room Air BMI result Body Mass Index 40.4 Const General: healthy appearing, comfortable, no acute distress, alert and awake Nutritional Appearance: well nourished Orientation/consciousness: patient oriented x3 HENMT Head: Yes normocephalic and Yes atraumatic Eyes Eyelids: Yes eyelids normal Conjunctivae: conjunctivae normal Sclerae: sclerae normal Corneas: corneas normal Pupils: Equal, round and reactive pupils present EOM: EOMs intact bilaterally Neck Neck: Yes full ROM Resp Effort & Inspection: normal respiratory effort, able to speak in complete sentences and not labored Skin General skin exam: elasticity normal Neuro General: patient oriented x3 Cranial nerves: Yes Equal, round and reactive pupils present and Yes Bilaterally intact EOM present Cognition (Neuro): normal cognition Extrem Other: Patient has mild edema to the dorsal surface of the left midfoot. No erythema, no ecchymosis. No palpable deformities. There is no calf tenderness, no Achilles tenderness. Course Course Course Narrative: This is a rapid medical exam performed by Todd Buck NP: Additional HPI, ROS, PE not included below will be deferred to primary provider. Patient is a 58-year-old female presenting to the ED with complaint of pain across top of left foot since yesterday afternoon. Began yesterday afternoon, denies injury. Has not taken any OTC medications for her sxs. Plan: xray Medical Decision Making Medical Decision Making MDM Narrative: 58-year-old female presents for evaluation left foot pain. She denies any falls but did report stepping on her left foot and feeling a sharp pain all the sudden. X-rays negative for fracture. She may have a foot sprain. There is no evidence to suggest cellulitis or infectious process. She has no calf tenderness or swelling to suggest DVT. Differential Diagnosis Differential Diagnoses: The differential diagnosis associated with the presentation includes Foot sprain Foot fracture Lisfranc fracture Contusion Independent Interpretation I performed an independent interpretation of an: Plain X-Ray Interpretation: No acute fracture of the left foot Radiology Impression Discussion of test interpretation with radiology: I have reviewed the radiologist's reading. Radiologist Impression: XR/XR foot LT min 3V IMPRESSION: Soft tissue swelling. Mild degenerative changes at the navicular cuneiform joints. Calcaneal spurs. Discharge Plan Discharge Clinical Impression: Acute pain of left foot Patient Disposition: Home, Self-Care Instructions: Arthralgia (ED) Additional Instructions: Your x-ray showed mild arthritis and swelling in the foot but no fractures Use ibuprofen/Tylenol for pain Elevate the leg above your heart while resting You may apply ice every 4 hours for 10-15 minutes Follow-up with your primary doctor Return for new or worsening symptoms Prescriptions: No Action bempedoic acid-ezetimibe 180-10 mg tablet 1 tab PO DAILY 90 Days Qty: 90 1RF metoprolol succinate 50 mg tablet extended release 24 hr 50 mg PO DAILY Qty: 90 1RF Jardiance 25 mg tablet 25 mg PO DAILY 90 Days Qty: 90 1RF Ozempic 0.25 mg or 0.5 mg (2 mg/3 mL) pen injector 0.25 mg subcut QWEEK Qty: 3 0RF Rx Instructions: for 4 weeks insulin degludec [Tresiba FlexTouch U-200] 200 unit/mL (3 mL) insulin pen 98 unit subcut BEDTIME Qty: 45 0RF lisinopril 20 mg tablet 20 mg PO DAILY 90 Days Qty: 90 1RF Probiotic 15 billion cell capsule, sprinkle 1 cap PO DAILY Rx Instructions: do not crush/chew/cut; swallow whole OR may open and sprinkle in cold drink/food glipizide 10 mg tablet extended release 24hr 10 mg PO QAM Interventions: ED Discharge Assessment Last Done: 03/07/24 23:44 Discharge Date/Time: 03/07/24 23:47 Print Language: Moldovan
[2024-03-07 19:35] VITALS: BP 136/91; PULSE 83; RESP 16; TEMP 36.3; O2SAT 93; BMI 40.4
[2024-03-07 22:14] VITALS: BP 126/61; PULSE 78; RESP 16; TEMP 36.9; O2SAT 95
[2024-03-07 23:44] VITALS: BP 143/74; PULSE 77; RESP 18; TEMP 36.8; O2SAT 93
== END 2024-03-07 23:47 | disposition home or self-care (01) ==
PROVIDERS: Emergency Provider Emergency Medicine Emergency Medical Services; PCP Nurse Practitioner Family
DX: M79.672 Pain in left foot (principal)
CPT/HCPCS: 73630; 99283

== ENCOUNTER 2024-03-09 06:20 | Outpatient (REF) | payer OTHER, SELFPAY ==
[2024-03-09 10:36] LABS: Appearance Urine Clear; Color Urine Yellow; Glucose Urine UA >=1000 mg/dL (Negative); Leukocyte Esterase Urine Negative (Negative); Nitrite Urine Negative (Negative); PH 5.5 (5.0-9.0); Specific Gravity - Urine >= 1.030 (1.005-1.025); UMIC TRIGGER UACC YES; Urine Blood Negative (Negative); Urine Ketones Negative (Negative); Urine Protein Negative (Neg-Trace)
[2024-03-09 10:43] LABS: Bacteria Urine None Seen (None Seen); Hyaline Casts Urine 0-2 /LPF (0-2); RBC Urine 0-2 /HPF (0-2); Squamous Epithelial Cell Urine 0-2 /HPF (0-2); WBC Urine 0-5 /HPF (0-5)
[2024-03-09 10:44] LABS: MANUAL DIFF FLAG NO
[2024-03-09 11:00] LABS: Basophils Absolute Auto 0.1 X10*3/uL (0.0-0.2); Basophils Percent Auto 0.9 % (0-2); Eosinophils Absolute Auto 0.2 X10*3/uL (0.0-0.4); Eosinophils Percent Auto 2.7 % (0-4); Hematocrit 43.1 % (37.0-47.0); Hemoglobin 14.1 g/dl (12.0-16.0); Imm Gran Abs Auto 0.03 X10*3/uL (0.00-0.03); Imm Gran Pct Auto 0.4 % (0.0-0.4); Lymphocytes Absolute Auto 2.2 X10*3/uL (1.2-4.9); Lymphocytes Percent Auto 32.9 % (20-40); Mean Corpuscular HGB Conc 32.7 g/dl (31.0-35.0); Mean Corpuscular Hemoglobin 29.6 pg (27.0-33.0); Mean Corpuscular Volume 90.4 fL (80.0-98.0); Mean Platelet Volume 10.6 fL (9.4-12.3); Monocytes Absolute Auto 0.5 X10*3/uL (0.1-1.2); Monocytes Percent Auto 7.6 % (2-11); Neutrophils Absolute Auto 3.8 x10*3/uL (2.0-8.3); Neutrophils Percent Auto 55.5 % (45-73); Platelet Count 229 X10*3/uL (160-400); Red Blood Count 4.77 X10*6/uL (4.20-5.50); Red Cell Distribution Width 12.8 % (11.0-16.0); White Blood Count 6.8 X10*3/uL (4.8-10.8)
[2024-03-09 11:14] LABS: Alanine Aminotransferase 35 U/L (0-31); Albumin Level 4.2 g/dL (3.5-5.0); Alkaline Phosphatase 87 U/L (39-117); Anion Gap 15 (12-20); Aspartate Amino Transferase 30 U/L (5-31); Bilirubin Total 0.3 mg/dL (0.0-1.0); Blood Urea Nitrogen 16 mg/dL (9-16); Calcium 9.4 mg/dL (8.4-10.2); Carbon Dioxide 21 mmol/L (22-29); Chloride 109 mmol/L (96-108); Cholesterol 133 mg/dL (<200); Estimated Glomerular Filt Rate > 60; Glucose Fasting 205 mg/dL (60-99); HDL Cholesterol 28 mg/dL (>40); LDL Cholesterol Calculated 52 mg/dL (<100); Potassium 3.9 mmol/L (3.3-5.1); Sodium 141 mmol/L (135-145); Total Protein 7.3 g/dL (6.5-8.0); Triglycerides 267 mg/dL (<150)
[2024-03-09 11:20] LABS: TSH reflex Free T4 1.85 uIU/mL (0.32-4.0)
== END 2024-03-09 06:21 | disposition home or self-care (01) ==
LOC: HO.HMGCLDS 06:20
PROVIDERS: PCP Nurse Practitioner Family; Visit Provider Nurse Practitioner Family
DX: Z00.00 Encounter for general adult medical examination without abnormal findings (principal); E11.9 Type 2 diabetes mellitus without complications
CPT/HCPCS: 36415; 80053; 80061; 81001; 84443; 85025

== ENCOUNTER 2024-03-15 14:53 | Outpatient (AMB) | payer OTHER, SELFPAY ==
--- NOTE | 2024-03-15 14:56 | MHC.PC.OV ---
Vital Signs 03/15/24 14:59 Height 5 ft 5 in Weight 240 lb BMI 39.9 BP 104/60 Blood Pressure Location Rt brachial Position Sitting Pulse 83 Pulse Source Pulse Oximeter Pulse Oximetry (%) 98 Oxygen Delivery Method Room Air Intake Visit Reasons: 3 month follow up Intake Note: Patient here for diabetes f/u. Allergies Penicillins [PENICILLINS] Allergy (Intermediate, Verified 03/15/24 16:30) RASH penicillamine Allergy (Unknown, Verified 03/15/24 16:30) Unknown penicillin V Allergy (Unknown, Verified 03/15/24 16:30) hives, rash, diarrhea codeine [CODEINE] Adverse Reaction (Severe, Verified 03/15/24 16:30) STOMACH PAIN Sulfa (Sulfonamide Antibiotics) [SULFA(SULFONAMIDE ANTIBIOTICS)] Adverse Reaction (Intermediate, Verified 03/15/24 16:30) VOMITING Tobacco use date assessed: 11/22/23 Dental Screening Dental Screen Date: 11/22/23 HPI 3 month follow up HPI Details Pt is a diabetic, on an DARLEEN. A1C in office today is 9.3. Microalbumin is up to date. Denies polyuria, polydipsia, and neuropathy. Pt denies any signs and symptoms of hypoglycemia and does know how to correct it. Pt reports that her fasting blood sugar has been over 200. Will stop ozempic and start mounjaro 2.5mg. Will also increase tresiba u-200 from 98 to 110 units. Pt will contact me in the near future if her blood sugar remains above 200. Pt reports that since starting bempedoic acid-ezetimibe her blood sugars have been elevated. Will have pt stop this med right now. 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 88413 - PHQ-9 Billing: Patient declined-do not bill Source: Developed by Drs. Rangel Hoover, Jeovanny Winslow and colleagues, with an educational evan from [employer]. Thrive Questionnaire Date Thrive assessed: 11/22/23 LYN-7 AMB Questionnaire LYN-7 Date LYN - 7 assessed: 11/22/23 Source: Developed by Drs. Rangel Hoover, Jasmina Eller, Jeovanny Rosa and colleagues, with an educational evan from [employer]. LYN-7 Assessment Billing LYN-7 Assessment Tool: pt declined-do not bill Review of Systems Const Reports as per HPI Physical exam (Primary Care) Vital Signs: Last Vital Signs Pulse 83 03/15/24 14:59 BP 104/60 03/15/24 14:59 Pulse Ox 98 03/15/24 14:59 Oxygen Delivery Method Room Air 03/15/24 14:59 BMI result Body Mass Index 39.9 Tobacco/Smoking Status: Tobacco use Status Tobacco use date assessed 11/22/23 03/15/24 14:58 Patient Tobacco Use Status Former Tobacco user 03/15/24 14:58 e-Cigarette/Vaping Use Never Used 03/15/24 14:58 Thrive Assessment: Date of Thrive Assessment Date Thrive assessed 11/22/23 03/15/24 14:58 Const General: cooperative Nutritional Appearance: obese Orientation/consciousness: patient oriented x3 Resp Effort & Inspection: normal respiratory effort Auscultation: clear to auscultation bilaterally Cardio Rate: regular rate Rhythm: regular rhythm Heart sounds: S1 normal heart sound present and S2 normal heart sound present Neuro General: patient oriented x3 Extrem Other: + sensation with use of monofilament to right foot, boot on LLE Psych Appearance: grossly normal Mental Status: mental status grossly normal Speech and movement: Normal speech and movement present Thought process: Normal thought process present Thought content: Normal thought content present Insight: Good insight present (Psych) Judgement: Good judgement present (Psych) Results AMB Hemoglobin A1c AMB Hemoglobin A1c 9.3 % Last Edit by Rema-Estela Dodd, CCMA on 03/15/24 15:17 Results Reviewed Results Reviewed: Laboratory Last Values Hgb A1c (Clinic) 9.3 % (4.0-6.0) H 03/15/24 15:17 Assessment and Plan Assessment & Plan (1) Diabetes: Code(s): E11.9 - Type 2 diabetes mellitus without complications Plan: stopping ozempic, starting moujaro. increasing tresiba to 110 units Orders: Orders AMB Hemoglobin A1c Today Z13.9 - Encounter for screening, unspecified Medications: New tirzepatide (Mounjaro) 2.5 mg (0.5 mL) subcut QWEEK 2 mL 0RF 4 weeks Coding Level of Care Code Est Pt Level 3 (52960) Diagnoses Diabetes E11.9
[2024-03-15 14:59] VITALS: BP 104/60; PULSE 83; O2SAT 98; BMI 39.9
== END 2024-03-15 15:39 | disposition home or self-care (01) ==
PROVIDERS: PCP Nurse Practitioner Family; Visit Provider Nurse Practitioner Family
DX: E11.9 Type 2 diabetes mellitus without complications (principal)
CPT/HCPCS: 83036; 99213

== ENCOUNTER 2024-06-27 15:15 | Outpatient (AMB) | payer OTHER, SELFPAY ==
[2024-06-27 15:19] VITALS: BP 92/60; PULSE 73; O2SAT 96; BMI 40.8
--- NOTE | 2024-06-27 15:19 | MHC.PC.OV ---
Vital Signs 06/27/24 15:19 Height 5 ft 5 in Weight 245 lb BMI 40.8 BP 92/60 Blood Pressure Location Rt brachial Position Sitting Pulse 73 Pulse Source Pulse Oximeter Pulse Oximetry (%) 96 Oxygen Delivery Method Room Air Intake Visit Reasons: 3 mon f/u Allergies Penicillins [PENICILLINS] Allergy (Intermediate, Verified 06/27/24 15:21) RASH penicillamine Allergy (Unknown, Verified 06/27/24 15:21) Unknown penicillin V Allergy (Unknown, Verified 06/27/24 15:21) hives, rash, diarrhea codeine [CODEINE] Adverse Reaction (Severe, Verified 06/27/24 15:21) STOMACH PAIN Sulfa (Sulfonamide Antibiotics) [SULFA(SULFONAMIDE ANTIBIOTICS)] Adverse Reaction (Intermediate, Verified 06/27/24 15:21) VOMITING Medication List - Last Reconciled 06/27/24 by FLOYD TorrezP- empagliflozin (Jardiance) 25 mg PO DAILY 90 days glipizide ER 10 mg PO QAM insulin degludec (Tresiba FlexTouch U-200 insulin) 98 units (0.49 mL) subcut BEDTIME lactobacillus combo no.11 (Probiotic) 1 cap PO DAILY lisinopril 20 mg PO DAILY 90 days metoprolol succinate ER 50 mg PO DAILY semaglutide (Ozempic) 0.5 mg (0.736 mL) subcut QWEEK Tobacco use date assessed: 06/27/24 Dental Screening Dental Screen Date: 06/27/24 Did you have a dental visit in the last 12 months?: Yes Did you have a dental problem in the last 6 months where you did not have access to dental care?: No Was dental information given to patient?: Patient has dentist HPI 3 mon f/u HPI Details Pt sees endo for diabetes. pt recently tried mounjaro, could not tolerate, now on ozempic, next follow up is at the end of jul.10.3 A1c at the end of april #2 nasal polyp to right nare, following up with ENT for this. Pt does report some sob, sitting up or lying down. EKG was NSR today, denies any CP, dizziness, diaphoresis, N/V, dizziness, blurred vision. Pt denies any wheezing, N/V, blurred vision, dizziness. She does report having some mind racing, stress, ? anxiety component. 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 1. Little interest or pleasure in doing things: not at all 2. Feeling down, depressed, or hopeless: not at all 3. Trouble falling or staying asleep, or sleeping too much: not at all 4. Feeling tired or having little energy: not at all 5. Poor appetite or overeating: not at all 6. Feeling bad about yourself - or that you are a failure or have let yourself or your family down: not at all 7. Trouble concentrating on things, such as reading the newspaper or watching television: not at all 8. Moving or speaking so slowly that other people could have noticed. Or the opposite - being so fidgety or restless that you have been moving around a lot more than usual: not at all 9. Thoughts that you would be better off or of hurting yourself in some way: not at all Total score: 0 Source: Developed by Drs. Rangel Hoover, Jasmina Eller, Jeovanny Rosa and colleagues, with an educational evan from [employer]. Thrive Questionnaire Date Thrive assessed: 06/21/24 I am a: Patient What is your living situation today?: I have a steady place to live Within the past 12 months, did the food you bought not last and you didn't have the money to get more?: Never true Within the past 12 months, did you worry whether your food would run out before you got money to buy more?: Never true Do you have trouble paying for medicines?: No Do you have trouble getting transportation to medical appointments?: No Do you have trouble paying your heating and electricity bill?: No Do you have trouble taking care of your child, family member or friend?: No Do you have trouble with day-to-day activities such as bathing, preparing meals, shopping, managing finances, etc.?: No Are you interested in more education?: No Please select the resources that you would like help with: None Currently or been in a relationship where the following occur: No concerns reported THRIVE Score: 0 AUDIT C Alcohol Use Questionnaire (AUDIT-C) 2. How many drinks containing alcohol do you have on a typical day when you are drinking?: 1 or 2 Total Score: 0 LYN-7 AMB Questionnaire LYN-7 Date LYN - 7 assessed: 11/22/23 Feeling nervous, anxious, or on edge: 0 = Not at all Not being able to stop or control worryin = Not at all Worrying too much about different things: 0 = Not at all Trouble relaxin = Not at all Being so restless that it is hard to sit still: 0 = Not at all Becoming easily annoyed or irritable: 0 = Not at all Feeling afraid as if something awful might happen: 0 = Not at all Total LYN-7 score (0-4 normal; 5-9 mild; 10-14 moderate; 15-21 severe): 0 Source: Developed by Drs. Rangel Hoover, Jasmina Eller, Jeovanny Rosa and colleagues, with an educational evan from [employer]. Physical exam (Primary Care) Vital Signs: Last Vital Signs Pulse 73 06/27/24 15:19 BP 92/60 06/27/24 15:19 Pulse Ox 96 06/27/24 15:19 Oxygen Delivery Method Room Air 06/27/24 15:19 BMI result Body Mass Index 40.8 Tobacco/Smoking Status: Tobacco use Status Tobacco use date assessed 06/27/24 06/27/24 15:22 Patient Tobacco Use Status Former Tobacco user 06/27/24 15:22 e-Cigarette/Vaping Use Never Used 06/27/24 15:22 PHQ-9: PHQ-9 Score PHQ-9: Total score 0 06/27/24 15:22 Thrive Assessment: Date of Thrive Assessment Date Thrive assessed 06/21/24 06/27/24 15:22 Currently or been in a relationship where the following occur: No concerns reported Const General: cooperative Orientation/consciousness: oriented to person Limitations: no limitations Chest Other: no tenderness with palpation Resp Effort & Inspection: normal respiratory effort Auscultation: clear to auscultation bilaterally Cardio Rate: regular rate Rhythm: regular rhythm Heart sounds: S1 normal heart sound present, S2 normal heart sound present and no murmurs Neuro General: oriented to person Psych Appearance: grossly normal Mental Status: mental status grossly normal Speech and movement: Normal speech and movement present Affect: normal affect Attitude: cooperative Thought process: Normal thought process present Thought content: Normal thought content present Insight: Good insight present (Psych) Judgement: Good judgement present (Psych) Assessment and Plan Assessment & Plan (1) SOB (shortness of breath): Code(s): R06.02 - Shortness of breath Plan: Sating normal, patient able to communicate and speak without any signs of shortness of breath or dyspnea. EKG was normal sinus rhythm. Do question anxiety component, will get this CT of chest, check labs. Patient knows to go to the ER/call 911 with any worsening symptoms (2) Diabetes: Code(s): E11.9 - Type 2 diabetes mellitus without complications Orders: Orders CT chest wo IV con Today R06.02 - Shortness of breath TSH reflex Free T4 Today R06.02 - Shortness of breath UA CC w/rflx Micro + Cult Today R06.02 - Shortness of breath D Dimer High Sensitivity Today R06.02 - Shortness of breath Complete Blood Count Auto Diff Today R06.02 - Shortness of breath Comprehensive Met. Panel Today R06.02 - Shortness of breath B Type Natriuretic Peptide Today R06.02 - Shortness of breath AMB EKG-In Office Today R06.02 - Shortness of breath Medications: New semaglutide (Ozempic) 0.5 mg (0.736 mL) subcut QWEEK 3 mL 0RF Discontinued tirzepatide Discontinued Reason: No Longer Medically Relevant 5 mg (0.5 mL) subcut QWEEK 30 days 2.5 mL 1RF Coding Level of Care Code Est Pt Level 3 (76624) Diagnoses SOB (shortness of breath) R06.02 Diabetes E11.9
== END 2024-06-27 16:33 | disposition home or self-care (01) ==
PROVIDERS: PCP Nurse Practitioner Family; Visit Provider Nurse Practitioner Family
DX: R06.02 Shortness of breath (principal); E11.9 Type 2 diabetes mellitus without complications

== ENCOUNTER → 2024-06-27 15:15 | Outpatient (BNVA) | payer OTHER, SELFPAY | PROVIDERS: PCP Nurse Practitioner Family; Visit Provider Nurse Practitioner Family | DX: R06.02 Shortness of breath (principal); E11.9 Type 2 diabetes mellitus without complications | CPT/HCPCS: 96127 ==

== ENCOUNTER 2024-06-29 13:12 | Outpatient (REF) | payer OTHER, SELFPAY ==
--- NOTE | ~2024-06-29 | XR_ITS ---
EXAMINATION: XR CHEST 2 VIEWS CLINICAL INFORMATION: Cough. COMPARISON: Chest radiographs dated 12/01/2007. TECHNIQUE: Frontal and lateral views of the chest were obtained. FINDINGS: The heart, great vessels, pulmonary vasculature and mediastinum are normal. The lungs show no focal infiltrate, effusion or pneumothorax. There is no acute osseous abnormality. XR/XR chest 2V IMPRESSION: No active cardiopulmonary disease. Electronically signed by: Reuben Carrillo MD 08/14/2024 02:35 PM [facility]
== END 2024-06-29 13:13 | disposition home or self-care (01) ==
LOC: HO.HMGCX 13:12
PROVIDERS: PCP Nurse Practitioner Family; Visit Provider Nurse Practitioner Family
DX: R06.02 Shortness of breath (principal)
CPT/HCPCS: 71046

== ENCOUNTER 2024-09-27 15:15 | Outpatient (AMB) | payer OTHER, SELFPAY ==
--- OUTSIDE RECORDS SUMMARY | 2024-09-27 15:18 | XMS_ITS | Patient Health Record ---
Author Organization [facility] Address [address] [place] [address] Care Team Providers Care Account Receivable Clerk Name Role Phone Reuben Fernandes Primary Care Provider Unahilaria gabbi KimJeff Unavailable [phone] Allergies Allergen (clinical drug ingredient) Drug/Non Drug Allergy documented on EMR Reaction Allergy Type Onset Date Status Adhesive Unknown Allergy Active codeine Codeine Unknown Drug Allergy Active morphine Morphine Unknown Drug Allergy Active Penicillin Unknown Drug Allergy Active Substance with sulfonamide structure and antibacterial mechanism of action (substance) Sulfa Antibiotics Unknown Drug Allergy Active Results Component Value Reference Range Notes HEMOGLOBIN A1C (GLYCOHEMOGLO BIN) Reviewed date:11/29/2023 08:22:47 AM Interpretation: Performing Lab: Notes/Report: HEMOGLOBIN A1C % (HH) 8.2 Reason For Referral No Information Medications Medication SIG (Take, Route, Frequency, Duration) Notes Start Date End Date Status Jardiance 25 MG 1 tablet Orally Once a day Active glipiZIDE 10 MG 1 tablet 30 minutes before breakfast Orally Once a day Active Ozempic Active Tresiba Active Nexlizet 180-10 MG 1 tablet Orally Once a day Active Metoprolol Succinate 50 MG 1 capsule Orally Once a day Active Lisinopril 20 MG 1 tablet Orally Once a day Active Walking Boot/Pneumatic As directed Wear Daily for Until further notice Active Trulicity 4.5 MG/0.5ML as directed Subcutaneous Not-Taking Immunizations Vaccine Route Administration Date Status Comme nts Influenza Unknown 03/14/2024 Refused Social History Tobacco Use: Social History Observation Description Date Details (start date - stop date) Former Smoker NA - NA Tobacco Use/Smoking Question Answer Notes Are you a: former smoker Additional Findings: Tobacco Non-User Current no n-smoker Alcohol Screen Question Answer Notes Did you have a drink containing alcohol in the p ast year? No Points 0 Interpretation Negative Tobacco use other than smoking: Question Answer Notes Are you an other tobacco user? No Problems Problem Type SNOMED Code ICD Code Onset Dates Problem Status W/U Status Risk Notes Problem Polyneuropathy due to type 2 diabetes mellitus (266611763) Type 2 diabetes mellitus with diabetic polyneuropathy (E11.42) Active confirmed Vital Signs Blood pressure diastolic 92 mm Hg 03/14/2024 Height 5ft5in in 03/14/2024 Blood pressure systolic 143 mm Hg 03/14/2024 Weight 243 lbs 03/14/2024 BMI 40.43 kg/m2 03/14/2024 Procedures Procedure Date Ordered Date Performed Result Body Sit e 69549-IAFK SKIN LESIONS, OVER 4 11/29/2023 N/A Encounters Encounter Location Date Provider [facility] [address] [place] [address] 11/29/2023 JeffSilva Type 2 diabetes mellitus with diabetic polyneuropathy E11.42 ; 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 ; Skin disease L98.9 ; Pain in left foot M79.672 and Xerosis cutis L85.[address] [address] 03/14/2024 Jeff Kim Pain in left foot M79.672 ; Plantar fascial fibromatosis M72.2 and Sprain of left foot, initial encounter S93.602A [address] [address] 04/11/2024 Jeff Kim Pain in left foot M79.672 ; Plantar fascial fibromatosis M72.2 and Sprain of left foot, initial encounter S93.602A [address] [address] 03/12/2024 Jeff Kim Assessments Encounter Date Diagnosis (ICD Code) Assessment Notes Treatment Notes Treatment Clinical Notes Section Notes 11/29/2023 Type 2 diabetes mellitus with diabetic polyneuropathy (ICD-10 - E11.42) 03/14/2024 Pain in left foot (ICD-10 - M79.672) 03/14/2024 Plantar fascial fibromatosis (ICD-10 - M72.2) 04/11/2024 Pain in left foot (ICD-10 - M79.672) 04/11/2024 Plantar fascial fibromatosis (ICD-10 - M72.2) 04/11/2024 Sprain of left foot, initial encounter (ICD-10 - S93.602A) 03/14/2024 Sprain of left foot, initial encounter (ICD-10 - S93.602A) 11/29/2023 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) 11/29/2023 Skin disease (ICD-10 - L98.9) 11/29/2023 Pain in left foot (ICD-10 - M79.672) 11/29/2023 Xerosis cutis (ICD-10 - L85.3) Plan Of Treatment Pending Test Test Name Order Date 43240-LVTK SKIN LESIONS, OVER 4 11/29/19 24 Next Appt Details Provider Name:Jeff Kim, 11/27/2024 08:15:00 AM, [address] [facility], [address], [place], [address], Insurance Providers Payer Name Payer Address Payer Phone Subscriber Number Group Number Insured Name Patient Relationship to Insured Coverage Start Date Coverage End Date [facility] [address] [place] [address] [phone] [id number] Horacio Meraz Spouse - patient is the spouse of the insured Medical (General) History Medical History History ICD Code covid-19 Back,Hip,and Knee pain Broken bones Measles Mumps Chicken pox Joint implants/screws High blood pressure Hiatal hernia Reflux ( GERD) Sciatica sinusitis Surgical History Surgery Date(Month/Year) knee replacement, right 07/01/23 Gall bladder removal hernia
--- OUTSIDE RECORDS SUMMARY | 2024-09-27 15:18 | XMS_ITS ---
Author Organization [facility] Address [address] [place] [address] Care Team Providers Care Orthodontic Treatment Coordinator Name Role Phone Reuben Fernandes Primary Care Provider Unav Jeff Hua [place] [phone] Medications Medication SIG (Take, Route, Frequency, Duration) Notes Start Date End Date Status Tresiba Active Nexlizet 180-10 MG 1 tablet Orally Once a day Active Metoprolol Succinate 50 MG 1 capsule Orally Once a day Active Walking Boot/Pneumatic As directed Wear Daily for Until further notice Active Trulicity 4.5 MG/0.5ML as directed Subcutaneous Not-Taking Jardiance 25 MG 1 tablet Orally Once a day Active glipiZIDE 10 MG 1 tablet 30 minutes before breakfast Orally Once a day Active Ozempic Active Lisinopril 20 MG 1 tablet Orally Once a day Active Encounters Encounter Location Date Provider Diagnosis [facility] [address] [place] [address] 04/11/2024 Jeff Kim Pain in left foot M79.672 ; Plantar fascial fibromatosis M72.2 and Sprain of left foot, initial encounter S93.602A Assessments Encounter Date Diagnosis (ICD Code) Assessment Notes Treatment Notes Treatment Clinical Notes Section Notes 04/11/2024 Pain in left foot (ICD-10 - M79.672) 04/11/2024 Plantar fascial fibromatosis (ICD-10 - M72.2) 04/11/2024 Sprain of left foot, initial encounter (ICD-10 - S93.602A) Plan Of Treatment Medication Medication Name Sig Start Date Stop Date Notes Walking Boot/Pneumatic As directed Wear Daily for Until further notice Next Appt Details Follow Up: prn, Reason: Provider Name:Jeff Marielena Kim, 11/27/2024 08:15:00 AM, [address], [place], [address], Progress Notes * Odalis MERAZOB: [birth year] (58 yo F)Acc No.[id number]:04/11/2024 Progress Notes Patient:?Annie Meraz Provider:?Jeff Kim DPM :1965???Age:58 Y???Sex:Female D ate:04/11/2024 Address:[address] [place], [place] [id number] Pcp:HOMER Damon Subjective: * Chief Complaints: * ??? * HPI: ???Foot Pain:?Nature:?sharp, aching, tenderness.?Location?Bottom, Midfoot, Left .?Onset/Cause:?unknown.?Aggrevated:?any pressure, standing, walking.?Treatments:?rest, , casting, arch binder.?Quality/Severity?1, scale 1-10.? * Medical History:? * Surgical History:? * Hospitalization/Major Diagno stic Procedure:? * Medications:?TakingOzempic g lipiZIDE 10 MG Tablet 1 tablet 30 minutes before breakfast Orally Once a dayJardiance 25 MG Tablet 1 tablet Orally Once a dayLisinopril 20 MG Tablet 1 tablet Orally Once a dayMetoprolol Succinate 50 MG Capsule ER 24 Hour Sprinkle 1 capsule Orally Once a dayNexlizet 180-10 MG Tablet 1 tablet Orally Once a dayTresiba Walking Boot/Pneumatic As directed Wear DailyTaking Ozempic Taking glipiZIDE 10 MG Tablet 1 tablet 30 minutes before breakfast Orally Once a dayTaking Jardiance 25 MG Tablet 1 tablet Orally Once a dayTaking Lisinopril 20 MG Tablet 1 tablet Orally Once a dayTaking Metoprolol Succinate 50 MG Capsule ER 24 Hour Sprinkle 1 capsule Orally Once a dayTaking Nexlizet 180-10 MG Tablet 1 tablet Orally Once a dayTaking Tresiba Taking Walking Boot/Pneumatic As directed Wear DailyNot-Taking/PRNTrulicity 4.5 MG/0.5ML Solution Pen-injector as directed Subcutaneous Not-Taking/PRN Trulicity 4.5 MG/0.5ML Solution Pen-injector as directed Subcutaneous Objective: * Examination: ???Ophthalmology Referral: ?DIABETES EYE EXAM?General Examination: ?GENERAL APPEARANCE:?pleasant, alert, well nourished, well developed, well hydrated, with good attention to hygene/body habitus, and in no acute distress.?ORIENTED:?person,place, and time.?Neurological: ?SENSORY:?Neurological exam is normal, pain sensation normal, vibration sensation intact, pinprick sensation is normal in the lower extremities, denies, tingling, burning, anesthesia, paresthesia, hyperesthesia, B/L, Neurological exam demonstrates NO?pop plantar of central band of pf left.?TINEL'S COMPRESSION:?Negative tarsal tunnel, kimi pedis, and medial calcaneal nerves B/L.?BABINSKI REFLEX:?absent.?Neuroma Pain: ?PALPATION:?No interspace pain noted on palpation.?Vascular: ?DP PULSES:?2/4, B/L.?PT PULSES:?2/4, B/L.?CAPILLARY FILL TIME:?3 secs. per digit, B/L.?SKIN TEMPERTURE GRADIENT OF THE LOWER EXTERMITIES:?warm to cool, proximal to distal, B/L.?HAIR GROWTH/TEXTURE/ELASTICITY/TURGOR:?normal, B/L.?PIGMENTATION:?normal, B/L.?EDEMA:?no edema.?TELANGECTASIA:?absent.?VARICOSITIES:?absent.?Dermatologic: ?SKIN FINDINGS:?Skin exam reveals normal texture, elasticity, and tugor. There are no masses. The interspaces are clear, B/L .?Orthopedic: ?MUSCLE STRENGTH:?5/5 all groups in a symmetrical fashion , B/L.?GAIT ABNORMALITY:?pronated, abducted, B/L.? Assessment: * Assessment: 1.?Pain in left foot - M79.6 72 (Primary)?2.?Plantar fascial fibromatosis - M72.2?3.?Sprain of left foot, initial encounter - S93.602A? Plan: * Treatment: * Procedure Codes:? * Preventive Medicine:? ??Counseling:?Discussion:?-13: Office or other outpatient visit for the evaluation and management of an established patient, which required a medically appropriate history and/or examination and LOW level of DECISION MAKING for: 1 STABLE ACUTE UNCOMPLICATED PROBLEM, 2 OR MORE MINOR PROBLEMS, OR 1 STABLE CHRONIC PROBLEM, THAT POSE(S) A LOW RISK FOR MORBIDITY/MORTALITY. The visit on the day of the encounter encompassed interpreting the data and educating the patient as to the nature of their condition, treatment options available according to their individual PMH, meds, allergies, and overall health/living conditions, as well as any potential risks or complications that may occur from a failure to adhere to, and participate in, the recommended course of therapy. The discussion included a complete verbal, and/or written explanation of the examination results, any x-rays taken, the proposed diagnosis, and outline of the treatment plan. A schedule for future care needs was also explained. The patient verbalized an understanding of the instructions at this time and agreed to be an active participant in their treatment. If the patient should think of any questions or concerns after the visit, I have encouraged the patient to call the office--pt to continue with supprotive shoegear with comfortable arch support and use arch binder prn; d/c cast boot.? * Follow Up:?prn * Images: * Sign off status: Completed true * Provider:?Jeff Kim DPM Date:? 024 Generated for [place] amezcua/Radha/eTransmitting on:?09/27/2024 03:18 PM EST History and Physical Notes * HPI (History of Present Illness) Category Sub-Category Detail Notes Category Not es Foot Pain Aggrevated: any pressure, standing, walk ing Onset/Cause: unknown Nature: sharp, aching, tende rness Treatments: rest, , casting, arc h binder Quality/Severity 1, scale 1-10 Location Bottom, Midfoot, Lef t Examination Category Sub-Category Detail Notes Category Not es Neuroma Pain PALPATION: No interspace pain noted on palpation Neurological SENSORY: Neurological exa m is normal, pain sensation normal, vibration sensation intact, pinprick sensation is normal in the lower extremities, denies, tingling, burning, anesthesia, paresthesia, hyperesthesia, B/L, Neurological exam demonstrates NO pop plantar of central band of pf left BABINSKI REFLEX: absent TINEL'S COMPRESSION: Negative tarsal juan francisco darnell, kimi pedis, and medial calcaneal nerves B/L Dermatologic SKIN FINDINGS: Skin exam reveal s normal texture, elasticity, and tugor. There are no masses. The interspaces are clear, B/L Orthopedic GAIT ABNORMALITY: pronated, abducted, B/L MUSCLE STRENGTH: 5/5 all groups in a symmetrical fashion , B/L General Examination GENERAL APPEARANCE: pleasant , alert, well nourished, well developed, well hydrated, with good attention to hygene/body habitus, and in no acute distress ORIENTED: person,place, and ti me Ophthalmology Referral DIABETES EYE EXAM Diabetic Retinopa thy Screening:: Yes Findings of Diabetic Eye Exam:: no retin opathy Vascular DP PULSES (B): 2/4, B/L PT PULSES (B): 2/4, B/L CAPILLARY FILL TIME: 3 secs. per digit, B/L TEMPERTURE GRADIENT (C): warm to cool, p roximal to distal, B/L TROPHIC CONDITION-TEXTURE/ELASTICITY/TURGOR/HAIR GROWTH (B): normal, B/L EDEMA (C): no edema TELANGECTASIA: absent VARICOSITIES: absent PIGMENTATION: normal, B/L
--- OUTSIDE RECORDS SUMMARY | 2024-09-27 15:18 | XMS_ITS ---
Author Organization [facility] Address [address] [place] [address] Care Team Providers Care Licensed Master Social Worker Name Role Phone Reuben Fernandes Primary Care Provider Unav Jeff Hua [phone] REASON FOR VISIT LT FT pain/lump on arch Encounters Encounter Location Date Provider Diagnosis [facility] [address] [place] [address] 03/12/2024 Jeff Kim Plan Of Treatment Next Appt Details Provider Name:Jeff Kim, 11/27/2024 08:15:00 AM, [address] [facility], [address], [address], Progress Notes * Odalis MERAZOB: [birth year] (58 yo F)Acc No.[id number]:03/12/2024 Patient:?Annie Meraz :1965???Age:58 Y???Sex:Female Address: [place] [address] * true * Date:? Generated for Printi ng/Faxing/eTransmitting on:?09/27/2024 03:18 PM EST
--- OUTSIDE RECORDS SUMMARY | 2024-09-27 15:18 | XMS_ITS | Data Portability ---
Author Organization [place] [facility] Address [address] [address] Care Team Providers Care Sample Clerk Name Role Phone KALLIE MORTON Primary Care Provider Assessment Encounter Date Assessment Date Assessment LastModified by Organization Details LastModified Time 07/12/2024 07/12/2024 Anterior nasal rhinoscopy confirms bilateral inferior turbinate hypertrophy slightly worse on the right side. I believe the urgent care missed took the normal anatomy for a large polyp. Discussed blood flow and nasal cycle as it relates to the appearance of the turbinate fluctuating over the course of the day. No specific intervention. Offered patient opportunity for a nasal endoscopy which she declined at this time as she agrees she does not likely have a polyp. Secondary concern at the end of the visit of progressive tinnitus. Will arrange audiometric testing at a future visit and discussed tinnitus dplosky Not available 07/12/2024 11:16:49 Plan of Treatment Reminders Order Date Submit Date Provider Last Modified By Organization Details Last Modified Time Details Appointments Hearing Test 2024 11:00A M Hearing Test Not available Not available Not available Hearing Test 2024 11:30A M TRISTON WOODS PA-C Not available Not available Not available Lab None recorded . Referral None recorded . Procedures None recorded . Surgeries None recorded . Imaging None recorded . Medication Orders None recorded . Patient TargetsNo targets recorded. Patient InstructionsNo instructions recorded. Reason for Referral None Reported. Problems Name Problem SNOMED Code Status Onset Date Resolution Date Notes Provider Name and Address Organization Details Recorded Time Bilateral tinnitus 15373923888 02 Active 2020 Tinnitus, bilateral ; Note: Date Diagnosed : 9:41 AM (H93.13) Not Available [facility] 4 02:32:07 Sensorine ural hearing loss of bilateral ears 171781647 Active 2020 Sensorine ural hearing loss, bilateral ; Note: Date Diagnosed : 1 9:41 AM (H90.3) Not Available [facility] 4 02:31:58 Mass of neck 398885833 Active 2020 Localized swelling, mass and lump, neck; Note: Date Diagnosed : 1 9:41 AM (R22.1) Not Available [facility] 4 02:31:56 Neck swelling 566992445 Active 2020 Localized swelling, mass and lump, neck; Note: Date Diagnosed : 9:41 AM (R22.1) Not Available [facility] 4 02:31:56 Hypertrop hy of nasal turbinate s 32477130 Active 2023 ÁNGEL JAVIER MD [address] [place] [address], [place], [address] [facility] 4 11:15:41 Problem Notes None recorded. Medical Equipment None Reported. Allergies Allergen ID Allergen Name Allergen Category Reaction Reaction Severity Criticality Documentation Date Start Date Code Code System Note Provider Name and Address Organization Details Recorded Time 67380 codeine medicatio n other Not available Not available 02/14/2024 2670 RxNorm React ion: Unkno wn; Not Available [facility] 4 00:56:34 28942 Penicilli n Not available other Not available Not available 02/14/2024 92396 RxNorm React ion: Unkno wn; Not Available [facility] 4 00:56:35 79621 Substance with sulfonami de structure and antibacte rial mechanism of action (substanc e) medicatio n nausea Not available Not available 02/14/2024 13416 8003 SNOMED React ion: vomit ing;; Not Available [facility] 4 00:56:36 Medications Name Sig Start Date Stop Date Status Note LastModified by Organization Details LastModified Time doxycycli ne hyclate 100 mg capsule TAKE 1 CAPSULE BY MOUTH TWICE A DAY FOR 7 DAYS 07/12 completed Not Available Not Available Not Available clindamyc in HCl 300 mg capsule TAKE 2 CAPSULES BY MOUTH 1/2 HOUR PRIOR TO DENTAL APPOINTM ENT 07/12 completed Not Available Not Available Not Available metoprolo l succinate ER 50 mg tablet,ex tended release 24 hr TAKE 1 TABLET BY MOUTH DAILY active Not Available Not Available No t Available glipizide ER 10 mg tablet, extended release 24 hr TAKE 1 TABLET BY MOUTH EVERY MORNING. active Not Available Not Available No t Available lisinopri l 20 mg tablet TAKE 1 TABLET BY MOUTH EVERY DAY active Not Available Not Available No t Available glipizide ER 5 mg tablet, extended release 24 hr 07/12 completed Medicati on ID: [id number] B rand Name: glipizid e Send Method: E-Prescr ibed Sub s Allowed: subs OK Medic ationGen ericName : glipizid e Not Available Not Available Not Available doxycycli ne hyclate 100 mg tablet TAKE 1 TABLET (100 MG TOTAL) BY MOUTH TWICE A DAY FOR 5 DAYS NOT FOR PREGNANC Y OR LACTATIO N 07/12 completed Not Available Not Available Not Available omega-3 acid ethyl esters 1 gram capsule active Medicati on ID: [id number] B rand Name: omega-3 acid ethyl esters S end Method: E-Prescr ibed Sub s Allowed: subs OK Medic ationGen ericName : omega-3 acid ethyl esters Not Available Not Available Not Available Jardiance 25 mg tablet TAKE 1 TABLET BY MOUTH DAILY IN AM active Not Available Not Available No t Available Trulicity 1.5 mg/0.5 mL subcutane ous pen injector active Medicati on ID: [id number] B rand Name: Trulicit y Send Method: E-Prescr ibed Sub s Allowed: subs OK Medic ationGen ericName : Trulicit y Not Available Not Available Not Available Xigduo XR 10 mg-1,000 mg tablet,ex tended release active Medicati on ID: [id number] B rand Name: Xigduo XR Send Method: E-Prescr ibed Sub s Allowed: subs OK Medic ationGen ericName : Xigduo XR Not Available Not Available Not Available Tresiba FlexTouch U-200 insulin 200 unit/mL (3 mL) subcutane ous pen INJECT 98 UNITS SUBCUTAN EOUSLY BEDTIME active Not Available Not Available No t Available Tresiba FlexTouch U-100 insulin 100 unit/mL (3 mL) subcutane ous pen 07/12 completed Medicati on ID: [id number] B rand Name: Tresiba FlexTouc h U-100 Se nd Method: E-Prescr ibed Sub s Allowed: subs OK Medic ationGen ericName : Tresiba FlexTouc h U-100 Not Available Not Available Not Available Nexlizet 180 mg-10 mg tablet TAKE 1 TABLET BY MOUTH DAILY FOR 90 DAYS 07/12 completed Not Available Not Available Not Available Trulicity 4.5 mg/0.5 mL subcutane ous pen injector INJECT 1 PEN SUBCUTAN EOUSLY EVERY WEEK 07/12 completed Not Available Not Available Not Available Ozempic 1 mg/dose (4 mg/3 mL) subcutane ous pen injector INJECT 1 MQ SUBCUTAN EOUSLY WEEKLY active Not Available Not Available No t Available Mounjaro 5 mg/0.5 mL subcutane ous pen injector INJECT 1 PEN SUBCUTAN EOUSLY ONCE WEEKLY active Not Available Not Available No t Available Mounjaro 2.5 mg/0.5 mL subcutane ous pen injector INJECT 2.5 MG SUBCUTAN EOUSLY EVERY WEEK active Not Available Not Available No t Available Dexcom G7 Tar Kettle Runner USE DIRECTED FOR DIABETES CONTROL active Not Available Not Available No t Available Dexcom G7 Sensor device USE DIRECTED FOR DIABETES CONTROL active Not Available Not Available No t Available Ozempic 0.25 mg or 0.5 mg (2 mg/3 mL) subcutane ous pen injector INJECT 0.5 MG SUBCUTAN EOUSLY EVERY WEEK FOR 4 WEEKS 07/12 completed Not Available Not Available Not Available Vitals Date Recorded Body height Body mass index (BMI) Body weight Provider Name and Address Organization Details Last Updated DateTime 07/12/2024 165.1 cm 40.1 kg/m2 806476.76 g Radhika Dubois [place] - [facility] 07/12/2024 10:55:11 Social History None recorded. Functional Status None recorded. Mental Status None recorded. Family History Nothing Reported. Medical History No medical history recorded. Gynecological HistoryNo gynecological history recorded. Obstetrics History GPAL:G 0 P 0 0 0 0 Past Encounters Encounter ID Performer Location Encounter Start Date Encounter Closed Date Diagnosis/Indication Diagnosis SNOMED-CT Code Diagnosis ICD10 Code [id number] ÁNGEL JAVIER MD [facility] [address] [address] 07/12/2024 09:56:07 07/12/2024 11:17:19 Hypertrophy of nasal turbinates 15563443 J34.3 Bilateral tinnitus 07443 41860 102 H93.13 Health Concerns Section Related Observation LastModified by Organization Detai ls LastModified Time None Recorded Concern Status LastModified by Organization Details LastModified Time None Recorded Advance Directives Directive None Recorded Payers Encounter Date Sequence Insurance Name Policy Number Policy [place] Covered Member ID [place] Member ID Guarantor Name 07/12/[address] [facility] IN[facility]MNITY PLAN (PPO) [id number] 1 Horacio Meraz [id number] Annie Meraz Notes Date Note Type Note Provider Name and Address Organization Details Recorded Time 07/12/2024 text/html right nasal polyp06/03/24 Urgent care visit for bilateral sinusitis given doxy with improvementno sig hx of recurrent sinus infectionsgood sense of smellno epistaxisno imaging studies PV 07/14/21 Theron - left facial swelling likely mild parotitis, chronic tinnitus ÁNGEL JAVIER MD [address] [place] [address], [place], [address], [facility] - [facility] 07/12/2024 11:17:16 OBGyn Episode No OBEpisode recorded.
--- OUTSIDE RECORDS SUMMARY | 2024-09-27 15:18 | XMS_ITS | Continuity of Care Document ---
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 Name Role Phone KALLIE MORTON Primary Care [...] Address Organization Details Recorded Time Bilateral tinnitus 28172130458 02 Active 2020 Tinnitus, bilateral ; Note: Date Diagnosed : 10/12/202 1 9:41 AM (H93.13) Not Available [facility] 4 02:32:07 Sensorine ural hearing loss of bilateral ears 082420369 Active 2020 Sensorine ural hearing loss, bilateral ; Note: Date Diagnosed : 1 9:41 AM (H90.3) Not Available [facility] 4 02:31:58 Mass of neck 298804522 Active 2020 Localized swelling, mass and lump, neck; Note: Date Diagnosed : 9:41 AM (R22.1) Not Available [facility] 4 02:31:56 Neck swelling 498689351 Active 2020 Localized swelling, mass and lump, neck; Note: Date Diagnosed : 9:41 AM (R22.1) Not Available [facility] 4 02:31:56 Hypertrop hy of nasal turbinate s 03024392 Active 2023 ÁNGEL JAVIER MD [address] [place] [address], [place], [address] , [facility] - [facility] 4 11:15:41 Problem Notes None recorded. Medical Equipment None Reported. Allergies Allergen ID Allergen Name Allergen Category Reaction Reaction Severity Criticality Documentation Date Start Date Code Code System Note Provider Name and Address Organization Details Recorded Time 65128 codeine medicatio n other Not available Not available 02/14/2024 2670 RxNorm React ion: Unkno wn; Not Available [facility] 4 00:56:34 42767 Penicilli n Not available other Not available Not available 02/14/2024 40420 RxNorm React ion: Unkno wn; Not Available [facility] 4 00:56:35 42131 Substance with sulfonami de structure and antibacte rial mechanism of action (substanc e) medicatio n nausea Not available Not available 02/14/2024 80835 8003 SNOMED React ion: vomit ing;; Not Available [facility] 4 00:56:36 Medications Name Sig Start Date [...] 24 hr 07/12 completed Medicati on ID: [id number] B rand Name: glipizid e Send Method: [...] 1 gram capsule active Medicati on ID: [id number] B rand Name: omega-3 acid ethyl esters S end Method: E-Prescr ibed Sub s Allowed: subs OK Medic ationGen ericName : omega-3 acid ethyl esters Not Available Not Available Not Available Jardiance 25 mg tablet TAKE 1 TABLET BY MOUTH DAILY IN AM active Not Available Not Available No t Available Trulicity 1.5 mg/0.5 mL subcutane ous pen injector active Medicati on ID: [id number] B rand Name: Trulicit y Send Method: E-Prescr ibed Sub s Allowed: subs OK Medic ationGen ericName : Trulicit y Not Available Not Available Not Available Xigduo XR 10 mg-1,000 mg tablet,ex tended release active Medicati on ID: [id number] B rand Name: Xigduo XR Send Method: [...] ous pen 07/12 completed Medicati on ID: [id number] B rand Name: Tresiba FlexTouc h U-100 [...] Not Available No t Available 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 Functional Status None recorded. Mental Status None recorded. Family History Nothing Reported. Medical History No medical history recorded. Gynecological HistoryNo gynecological history recorded. Obstetrics History GPAL:G 0 P 0 0 0 0 Past Encounters Encounter ID Performer Location Encounter Start Date Encounter Closed Date Diagnosis/Indication Diagnosis SNOMED-CT Code Diagnosis ICD10 Code [id number] ÁNGEL JAVIER MD [facility] [address] [place] [address] 07/12/2024 09:56:07 07/12/2024 11:17:19 Hypertrophy of nasal turbinates 77151169 J34.3 Bilateral tinnitus 67534 05830 102 H93.13 Health Concerns Section Related Observation LastModified by Organization Detai ls LastModified Time None Recorded Concern Status LastModified by Organization Details LastModified Time None Recorded Payers Encounter Date Sequence Insurance Name Policy Number Policy [place] Covered Member ID [place] Member ID Guarantor Name 07/12/2024 1 [facility] (PPO) [id number] 1 Horacio Meraz [id number] Annie Meraz Notes Date Note Type Note Provider Name and Address Organization Details Recorded Time 07/12/2024 text/html right nasal polyp06/03/24 Urgent care visit for bilateral sinusitis given doxy with improvementno sig hx of recurrent sinus infectionsgood sense of smellno epistaxisno imaging studies PV 07/14/21 Theron - left facial swelling likely mild parotitis, chronic tinnitus ÁNGEL JAVIER MD [address] [place] [address], [place], [address], [place] - [facility] 07/12/2024 11:17:16 OBGyn Episode No OBEpisode recorded.
--- OUTSIDE RECORDS SUMMARY | 2024-09-27 15:18 | XMS_ITS ---
Author Organization [facility] Address [address] [facility] [place] [address] Care Team Providers Care Internal Specialist Name Role Phone Reuben Fernandes Primary Care Provider Unav Jeff Hua Unavailable [phone] Allergies Allergen (clinical drug ingredient) Drug/Non Drug Allergy documented on EMR Reaction Allergy Type Onset Date Status Adhesive Unknown Allergy Active codeine Codeine Unknown Drug Allergy Active morphine Morphine Unknown Drug Allergy Active Penicillin Unknown Drug Allergy Active Substance with sulfonamide structure and antibacterial mechanism of action (substance) Sulfa Antibiotics Unknown Drug Allergy Active REASON FOR VISIT Pcp-12/24, Foot pain Medications Medication SIG (Take, Route, Frequency, Duration) Notes Start Date End Date Status Metoprolol Succinate 50 MG 1 capsule Orally Once a day Active Nexlizet 180-10 MG 1 tablet Orally Once a day Active Walking Boot/Pneumatic As directed Wear Daily for Until further notice 03/14/2024 Active Trulicity 4.5 MG/0.5ML as directed Subcutaneous Not-Taking Tresiba Active Jardiance 25 MG 1 tablet Orally Once a day Active glipiZIDE 10 MG 1 tablet 30 minutes before breakfast Orally Once a day Active Lisinopril 20 MG 1 tablet Orally Once a day Active Ozempic Active Immunizations Vaccine Route Administration Date Status Comme [...] Are you an other tobacco user? No Vital Signs Height 5ft5in in 03/14/2024 Weight 243 lbs 03/14/2024 BMI 40.43 kg/m2 03/14/2024 Blood pressure systolic 143 mm Hg 03/14/20 24 Blood pressure diastolic 92 mm Hg 024 Encounters Encounter Location Date Provider Diagnosis [facility] [address] [place] [address] 03/14/2024 Jeff Kim Pain in left foot M79.672 ; Plantar fascial fibromatosis M72.2 and Sprain of left foot, initial encounter S93.602A Assessments Encounter Date Diagnosis (ICD Code) Assessment Notes Treatment Notes Treatment Clinical Notes Section Notes 03/14/2024 Pain in left foot (ICD-10 - M79.672) 03/14/2024 Plantar fascial fibromatosis (ICD-10 - M72.2) 03/14/2024 Sprain of left foot, initial encounter (ICD-10 - S93.602A) Plan Of Treatment Medication Medication Name Sig Start Date Stop Date Notes Walking Boot/Pneumatic As directed Wear Daily for Until further notice 03/14/2024 Next Appt Details Follow Up: 3 Weeks, Reason: Provider Name:Jeff Kim, 11/27/2024 08:15:00 AM, [address] [place] [address], [address], [address], Progress Notes * Odalis MERAZOB: [birth year] (58 yo F)Acc No.[id number]:03/14/2024 Progress Note Patient:?Annie Meraz Provider:?Jeff Kim DPM :1965???Age:58 Y???Sex:Female D ate:03/14/2024 Address:[address] [place] [address] [facility] Pcp:HOMER Damon Subjective: * Chief Complaints: * ???Pcp-12/24Foot pain * HPI: ???Foot Pain:?Nature:?sharp, aching, tenderness.?Location?Bottom, Midfoot, Left .?Duration:?1 week.?Onset/Cause:?unknown.?Course:?worse.?Aggrevated:?any pressure, standing, walking.?Treatments:?rest.?Quality/Severity?9, scale 1-10.? * ROS:?General/Constitutional:?Nausea?denies, denies.?Vomiting?denies, denies.?Hunger Thirst?denies, denies.?Loss appetite?denies, denies.?Chills?denies, denies.?Fatigue?denies, denies.?Fever?denies, denies.?Night Sweats denies, denies.?Unexplained weight loss?denies, denies.?Unexplained weight gain?denies.?Ophthalmologic:?Blurred vision?denies.?Red eye?denies.?HEENTM:?Dentures?denies, denies.?Dizziness?denies, denies.?Glasses/contacts?admits, denies.?Retinopathy?denies, denies.?Blurred/double vision?denies, denies.?TMJ?denies, denies.?Discharge/drainage?denies, denies.?Implants?denies, denies.?Sore throat?denies.?Dental implants?denies.?Hard of hearing ?denies, denies.?Difficulty chewing/swallowing/speaking?denies, denies.?Nose bleeds?denies, denies.?Sore mouth?denies, denies.?Swollen glands?denies.?Respiratory:?On Oxygen?denies, denies.?Pneumonia/pleurisy?denies, denies.?Bronchitis?denies, denies.?Emphysema?denies, denies.?Coughing?denies, denies.?Cough blood?denies, denies.?Shortness of breath?denies, denies.?Wheezing?denies, denies.?Cardiovascular:?Pacemaker?denies, denies.?MVP?denies, denies.?WPW?denies, denies.?CHF?denies, denies.?Heart attack?denies, denies.?Septal defect?denies, denies.?Rapid beat?denies, denies.?Chest pain ?denies, denies.?Atrial Fib.?denies, denies.?Murmur/Palpitations?denies, denies.?Gastrointestinal:?Hemorrhoids?denies, denies.?Stomach/Abdominal pain?denies, denies.?Dark blood stool?denies, denies.?Irritable bowel ?admits, denies.?Constipation?admits, denies.?Diarrhea?admits, denies.?Vomiting?denies.?Hematology:?Swelling?admits, denies.?Clots?denies.?Varicose Veins?denies.?Bruising?denies, denies.?Bleeding problem?denies, denies.?Genitourinary:?Blood urine?denies, denies.?Frequent/Painfu/urination/bladder control?admits, denies.?Kidney stones?denies, denies.?Infection (UTI)?denies, denies.?Nephropathy?denies, denies.?sex trans dis (STD)?denies.?Prostate?denies.?Musculoskeletal:?Hammertoes?denies, denies.?Bunions?denies, denies.?Scoliosis/kyphosis?denies.?Back Pain?denies.?Muscle Cramps/ Resting?denies.?Muscle cramps / walking?denies, denies.?Generalized aches and pains?admits, denies.?Weakness?denies, denies.?Integ.:?Marroquin?denies, denies.?Scars?denies, denies.?Corns/calluses?denies, denies.?Ingrown nails?denies, denies.?Painful nails?denies, denies.?Open Sores?denies.?Rashes?denies, denies.?Neurologic:?Difficulty sleeping?denies, denies.?Bipolar?denies.?Brain disorder?denies, denies.?Numbness?denies.?Balance trouble?denies, denies.?Confusion?denies, denies.?Fainting/blackouts?denies, denies.?Headache?denies.?Tingling?denies.?Tremors?denies, denies.? * Medical History:? * Surgical History:?knee repla handy, right 07/01/23Gall bladder removal hernia * Hospitalization/Major Diagno stic Procedure:?Denies Past Hospitalization * Family History:?Mother: dece ased, foot problems, heart attack, , high blood pressure, diagnosed with Diabetic - NIDDM.?Father: , kidney/liver disease, heart attack, high blood pressure, poor circulation, diagnosed with Family history of arthritis, Diabetic - NIDDM.?Siblings: high blood pressure.? * Social History:?Tobacco Use:?Tobacco Use/Smoking?Are you a:?former smoker ?Additional Findings: Tobacco Non-User?Current non-smoker ?Tobacco use other than smoking?Are you an other tobacco user??No ???Drugs/Alcohol:?Drugs?Have you used drugs other than those for medical reasons in the past 12 months??No ?Alcohol Screen?Did you have a drink containing alcohol in the past year??No ?Points?0 ?Interpretation?Negative ???Miscellaneous:?Caffeine: yes, frequency:, 1-2 cups per day. ?Children: yes. ?Exercise: yes, bike, walking, stretching. ?Marital status: . 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 * Medications:?TakingOzempic g lipiZIDE 10 MG Tablet 1 tablet 30 minutes before breakfast Orally Once a dayJardiance 25 MG Tablet 1 tablet Orally Once a dayLisinopril 20 MG Tablet 1 tablet Orally Once a dayMetoprolol Succinate 50 MG Capsule ER 24 Hour Sprinkle 1 capsule Orally Once a dayNexlizet 180-10 MG Tablet 1 tablet Orally Once a dayTresiba Taking Ozempic Taking glipiZIDE 10 MG Tablet 1 tablet 30 minutes before breakfast Orally Once a dayTaking Jardiance 25 MG Tablet 1 tablet Orally Once a dayTaking Lisinopril 20 MG Tablet 1 tablet Orally Once a dayTaking Metoprolol Succinate 50 MG Capsule ER 24 Hour Sprinkle 1 capsule Orally Once a dayTaking Nexlizet 180-10 MG Tablet 1 tablet Orally Once a dayTaking Tresiba Not-Taking/PRNTrulicity 4.5 MG/0.5ML Solution Pen-injector as directed Subcutaneous Medication List reviewed and reconciled with the patientNot-Taking/PRN Trulicity 4.5 MG/0.5ML Solution Pen-injector as directed Subcutaneous Medication List reviewed and reconciled with the patient * Allergies:?PenicillinSulfa A ntibioticsMorphineAdhesiveCodeineyes[Allergies Verified] Objective: * Vitals:?Ht: 5ft5in, Wt:243, BMI:40.43, Shoe size: 10, BP:143/92 mm Hg, BS: 233, Ht-cm: 165.1 cm, Wt-k.22 kg. * ???Past Orders: ???Lab:HEMOGLOBIN A1C (GLYCO HEMOGLOBIN) (Order Date - 11/29/2023) (Collection Date - 11/29/2023) ? Value Reference Range ?HEMOGLOBIN A1C % (HH) 8.2 * Examination: ???Ophthalmology Referral: ?DIABETES EYE EXAM?General Examination: ?GENERAL APPEARANCE:?pleasant, alert, well nourished, well developed, well hydrated, with good attention to hygene/body habitus, and in no acute distress.?ORIENTED:?person,place, and time.?Neurological: ?SENSORY:?Neurological exam is normal, pain sensation normal, vibration sensation intact, pinprick sensation is normal in the lower extremities, denies, tingling, burning, anesthesia, paresthesia, hyperesthesia, B/L, Neurological exam demonstrates pop plantar of central band of pf left.?TINEL'S [...] symmetrical fashion , B/L.?GAIT ABNORMALITY:?pronated, abducted, B/L.? * Physical Examination:?L4361 Pneumatic Walking Boot:?Application of pneumatic walking boot, prefabricated, including fitting and adjustment:?Medium, Left.? Assessment: * Assessment: 1.?Pain in left foot - M79.6 72 (Primary)?2.?Plantar fascial fibromatosis - M72.2?3.?Sprain of left foot, initial encounter - S93.602A? Plan: * Treatment: * Immunizations:? Influenza (Not administered - Refused: Patient decision) * Procedure Codes:?L4361 WALKI NG BOOT PNEUMATIC AND OR VAC * Preventive Medicine:? ??Counseling:?Discussion:?-14: Office or other outpatient visit for the evaluation and management of an established patient, which required a medically appropriate history and/or examination and MODERATE level of DECISION MAKING for: 1 OR MORE CHRONIC PROBLEM(S) THATS WORSENING, 2 STABLE CHRONIC PROBLEMS, A NEWLY DIAGNOSED PROBLEM WITH UNCERTAIN PROGNOSIS, AN ACUTE COMPLICATED INJURY WITH MULTIPLE TREATMENT OPTIONS, OR AN ACUTE PROBLEM WITH ACCOMPANYING SYSTEMIC SYMPTOMS, THAT POSE(S) A MODERATE RISK OF MORBIDITY. THIS CONDITION MAY ALSO INCLUDE RX DRUG MANAGEMENT, OR A DECISON FOR MINOR SURGERY. The visit on the day of the [...] have encouraged the patient to call the office.?Orthotic Dispensing:?The patient presents today for fitting and dispensing of orthotics. The inserts were checked against the prescription and found to be accurate. They were properly fitted to the patients feet and shoes in both weight-bearing and non-weight bearing attitudes. The patient was instructed to gradually increase the amount of time they are wearing the orthoses, starting with one hour the first day and thereon progressively increasing the amount of time used by one hours per day until they are comfortable to be worn all day and with all activities. They were asked to call the office if any signs of skin irritation were noted including redness, blistering or callous formation. The patient verbally indicated a full understanding of all the above information, Handout reviewed and dispensed, The patient signed confirmation form indicating receipt of DME device.?P.R.I.C.E.:?The patient was counseled on the use of P.R.I.C.E. and NSAIDS (if well tolerated) to aid in the recovery from their painful condition, Pneumatic Cast boot applied, Cane for assisted gate.? * Follow Up:?3 Weeks * Images: * Sign off status: Completed true * Provider:?Jeff Kim DPM Date:? 024 Generated for [place] amezcua/Radha/eTransmitting on:?09/27/2024 03:18 PM EST History and Physical Notes * HPI (History of Present Illness) Category Sub-Category Detail Notes Category Not es Foot Pain Aggrevated: any pressure, standing, walk ing Onset/Cause: unknown Course: worse Duration: 1 week Nature: sharp, aching, tende rness Treatments: rest Quality/Severity 9, scale 1-10 Location Bottom, Midfoot, Lef t Physical Examination Category Sub-Category Detail Notes Section Note s L4361 Pneumatic Walking Boot Application of pneumatic walking boot, prefabricated, including fitting and adjustment: Medium, Left Examination Category Sub-Category Detail Notes Category Not es Neuroma Pain PALPATION: No interspace pain noted on palpation Neurological SENSORY: Neurological exa m is normal, pain sensation normal, vibration sensation intact, pinprick sensation is normal in the lower extremities, denies, tingling, burning, anesthesia, paresthesia, hyperesthesia, B/L, Neurological exam demonstrates pop plantar of central band of pf [...]
[2024-09-27 15:33] VITALS: BP 110/64; PULSE 71; O2SAT 95; BMI 40.8
--- NOTE | 2024-09-27 15:33 | A.OFFPC_ITS ---
Vital Signs 09/27/24 15:33 Height 5 ft 5 in Weight 245 lb BMI 40.8 BP 110/64 Blood Pressure Location Lt brachial Position Sitting Pulse 71 Pulse Source Pulse Oximeter Pulse Oximetry (%) 95 Oxygen Delivery Method Room Air Intake Visit Reasons: 3 tue/u Intake Note: Pt is here today for 3 months follow up visit on DM. Allergies Penicillins [PENICILLINS] Allergy (Intermediate, Verified 09/27/24 15:34) RASH penicillamine Allergy (Unknown, Verified 09/27/24 15:34) Unknown penicillin V Allergy (Unknown, Verified 09/27/24 15:34) hives, rash, diarrhea codeine [CODEINE] Adverse Reaction (Severe, Verified 09/27/24 15:34) STOMACH PAIN Sulfa (Sulfonamide Antibiotics) [SULFA(SULFONAMIDE ANTIBIOTICS)] Adverse Reaction (Intermediate, Verified 09/27/24 15:34) VOMITING Medication List - Last Reconciled 09/27/24 by Reuben Paez, [employer]PERVIS[employer]- empagliflozin (Jardiance) 25 mg PO DAILY 90 days insulin degludec (Tresiba FlexTouch U-200 insulin) 130 units subcutaneously bedtime; lisinopril 20 mg PO DAILY metoprolol succinate ER 50 mg PO DAILY sitagliptin phosphate (Januvia) 100 mg PO DAILY Tobacco use date assessed: 09/27/24 Dental Screening Dental Screen Date: 06/27/24 HPI 3 tue f/ HPI Details Chief Complaint Frustration with uncontrolled blood glucose levels despite ongoing treatment efforts. History of Present Illness The patient is a 58-year-old female presenting with Type 2 Diabetes Mellitus. The patient is frustrated due to persistently high blood glucose levels despite constant glucose monitoring using the Dexcom device and adherence to prescribed medications. Her blood glucose readings have not decreased, with the lowest noted at 170 mg/dL. She reports that her usual range is between 220 mg/dL and 240 mg/dL, despite strict dietary management. She is currently managed with Tresiba 130 units daily, which she will increase to 140 units daily as per recent adjustments. Additionally, she is taking Januvia and Jardiance 25 mg. The patient did not tolerate GLP-1 receptor agonists previously and remains concerned about the lack of progress in glycemic control. Her next endocrinology follow-up is scheduled for the following . Social History Health Maintenance Review of Systems - Cardiovascular: Reports obesity - Endocrine: Reports uncontrolled blood glucose levels Physical Exam General: Cooperative, healthy appearing, comfortable, no acute distress and well developed, obese Orientation: Patient oriented x3 Limitations: No limitations Head: Normal to inspection Ears: Hearing grossly normal bilaterally Nose: Normal external nose present Face and sinus: Normal facial exam Eyes: Appearance normal, both eyes and all related structures Neck: Normal visual inspection and Yes full ROM Respiratory: Lungs clear. Normal respiratory effort and able to speak in complete sentences. Clear to auscultation bilaterally Cardiovascular: Regular rate and rhythm. Obese S1 and S2 GI: Normal to inspection. Soft to palpation and nontender Skin: No rashes or lesions noted Neuro: Patient oriented x3 Extremities: Feet are intact. Positive monofilament. Normal to inspection Results Plan - Continue monitoring blood glucose alyciae ls with Dexcom. - Increase Tresiba dosage from 130 units to 140 units daily. - Continue current doses of Januvia and Jardiance. - Follow up with the engineering tech nex t week to evaluate for possible adjustment of treatment regimen, including consideration of mealtime insulin. - Advise patient to report back via port al after endocrinology consultation. Patient was informed and verbally consented to the use of an ambient scribe for clinic note documentation during this visit. Discussion Notes I discussed with the patient her current therapeutic regimen for managing Type 2 Diabetes Mellitus, emphasizing the importance of continuing with her Tresiba, Januvia, and Jardiance medications. The patient expressed concern regarding continuous high blood sugar levels despite following her prescribed treatment plan. I advised her to increase the Tresiba dosage and to continue regular monitoring using her Dexcom device. We discussed her upcoming endocrinology appointment and the potential consideration of mealtime insulin. I reminded her to return with updates through the patient portal following her visit with the engineering tech. Patient Instructions - Increase Tresiba dose to 140 units guevara ly as directed. - Maintain dietary management and regula r blood glucose monitoring. - Attend the endocrinology appointment a s scheduled next . - Update your treatment progress via the patient portal after the endocrinology consultation. [facility] Medical History Plantar fascial fibromatosis Rosacea Diabetes Surgical History Status post total right knee replacement Social History Housing: House Alcohol intake: current Alcohol intake frequency: does not drink Patient Tobacco Use Status: Former Tobacco user Years Smoked: 40 years ago e-Cigarette/Vaping Use: Never Used Second Hand Smoke Exposure: No service: No Current occupational status: employed 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 Current occupational exposures/hazards: No Cognitive needs: No Hearing needs: No Vision needs: No Questionnaire Thrive Questionnaire Date Thrive assessed: 06/21/24 I am a: Patient What is your living situation today?: I have a steady place to live Within the past 12 months, did the food you bought not last and you didn't have the money to get more?: Never true Within the past 12 months, did you worry whether your food would run out before you got money to buy more?: Never true Do you have trouble paying for medicines?: No Do you have trouble getting transportation to medical appointments?: No Do you have trouble paying your heating and electricity bill?: No Do you have trouble taking care of your child, family member or friend?: No Do you have trouble with day-to-day activities such as bathing, preparing meals, shopping, managing finances, etc.?: No Are you currently unemployed and looking for a job?: No Are you interested in more education?: No Please select the resources that you would like help with: None Currently or been in a relationship where the following occur: No concerns reported THRIVE Score: 0 LYN-7 AMB Questionnaire YLN-7 Date LYN - 7 assessed: 11/22/23 Source: Developed by Drs. Rangel Hoover, Jasmina Eller, Jeovanny Rosa and colleagues, with an educational evan from [employer]. Physical exam (Primary Care) Vital Signs: Last Vital Signs Pulse 71 09/27/24 15:33 BP 110/64 09/27/24 15:33 Pulse Ox 95 09/27/24 15:33 Oxygen Delivery Method Room Air 09/27/24 15:33 BMI result Body Mass Index 40.8 Tobacco/Smoking Status: Tobacco use Status Tobacco use date assessed 09/27/24 09/27/24 15:42 Patient Tobacco Use Status Former Tobacco user 09/27/24 15:33 e-Cigarette/Vaping Use Never Used 09/27/24 15:33 Thrive Assessment: Date of Thrive Assessment Date Thrive assessed 06/21/24 09/27/24 15:33 Currently or been in a relationship where the following occur: No concerns reported Results AMB Hemoglobin A1c AMB Hemoglobin A1c 9.3 % Last Edit by JIMMIE Handy on 09/27/24 15:4 9 Results Reviewed Results Reviewed: Laboratory Last Values Hgb A1c (Clinic) 9.3 % (4.0-6.0) H 09/27/24 15:44 Coding Level of Care Code Est Pt Level 3 (89082) Diagnoses Diabetes E11.9 Assessment & Plan Assessment & Plan (1) Diabetes: Code(s): E11.9 - Type 2 diabetes mellitus without complications Category: Medical Plan . Orders: Orders AMB Hemoglobin A1c Today Z13.9 - Encounter for screening, unspecified Medications: Changed From insulin degludec (Tresiba FlexTouch U-200 insulin) 130 units subcutaneously bedtime; To insulin degludec (Tresiba FlexTouch U-200 insulin) subcutaneously bedtime; 140 tresiba 45 mL 0RF
== END 2024-09-27 16:10 | disposition home or self-care (01) ==
PROVIDERS: PCP Nurse Practitioner Family; Visit Provider Nurse Practitioner Family
DX: Z13.9 Encounter for screening, unspecified (principal); E11.9 Type 2 diabetes mellitus without complications

== ENCOUNTER → 2024-09-27 15:15 | Outpatient (BNVA) | payer OTHER, SELFPAY | PROVIDERS: PCP Nurse Practitioner Family; Visit Provider Nurse Practitioner Family | DX: E11.9 Type 2 diabetes mellitus without complications (principal); Z79.4 Long term (current) use of insulin | CPT/HCPCS: 83036 ==

== ENCOUNTER 2024-12-20 15:43 | Outpatient (AMB) | payer OTHER, SELFPAY ==
--- NOTE | 2024-12-20 15:52 | A.OFFPC_ITS ---
Vital Signs 12/20/24 15:55 Height 5 ft 5 in Weight 250 lb BMI 41.6 BP 102/66 Blood Pressure Location Lt brachial Position Sitting Pulse 75 Pulse Source Pulse Oximeter Pulse Oximetry (%) 96 Oxygen Delivery Method Room Air Intake Visit Reasons: ANNUAL PE Allergies Penicillins [PENICILLINS] Allergy (Intermediate, Verified 12/20/24 16:43) RASH penicillamine Allergy (Unknown, Verified 12/20/24 16:43) Unknown penicillin V Allergy (Unknown, Verified 12/20/24 16:43) hives, rash, diarrhea codeine [CODEINE] Adverse Reaction (Severe, Verified 12/20/24 16:43) STOMACH PAIN Sulfa (Sulfonamide Antibiotics) [SULFA(SULFONAMIDE ANTIBIOTICS)] Adverse Reaction (Intermediate, Verified 12/20/24 16:43) VOMITING Medication List - Last Reconciled 12/20/24 by FLOYD TorrezPMarisabel blood-glucose sensor (Dexcom G7 Sensor device) As directed dulaglutide (Trulicity) 0.75 mg subcut QWEEK empagliflozin (Jardiance) 25 mg PO DAILY 90 days insulin aspart U-100 (Novolog FlexPen U-100 Insulin aspart) 1 sliding scale dose subcut USEASDIRECTD insulin degludec (Tresiba FlexTouch U-200 insulin) 120 units subcut BEDTIME lisinopril 20 mg PO DAILY metoprolol succinate ER 50 mg PO DAILY Tobacco use date assessed: 12/20/24 Dental Screening Dental Screen Date: 12/20/24 Did you have a dental visit in the last 12 months?: Yes Did you have a dental problem in the last 6 months where you did not have access to dental care?: No Was dental information given to patient?: Patient has dentist HPI ANNUAL PE HPI Details History of Present Illness The patient is a 59-year-old female presenting for a physical exam. She has a medical history of Type 2 Diabetes Mellitus with a recent A1c of 8.3, suggesting inadequate glycemic control. She utilizes Tresiba for basal insulin and Novolog TID daily with a sliding scale dosage. She also takes Trulicity, but due to associated visual changes, discontinuation was advised. She regularly consults with an technical sme and two ophthalmologists. Her preventative screenings, including mammography and colonoscopy, are current. Morbid obesity is also noted as a significant comorbid condition. Did not want any vaccinations today Health Maintenance - Mammogram: Up-to-date - Colon screening: Up-to-date -has a creative lead for paps Social History - No pertinent information discussed Review of Systems - Endocrine: Reports visual changes with Trulicity denies any cp, sob, n/v, blood in stool, constipation, diarrhea, current skin problems, denies any si or hi Physical Exam General: Cooperative, healthy appearing, comfortable, no acute distress and well developed, morbid obesity Orientation: Patient oriented x3 Limitations: No limitations Head: Normal to inspection Ears: Hearing grossly normal bilaterally Nose: Normal external nose present Face and sinus: Normal facial exam Eyes: Appearance normal, both eyes and all related structures Neck: Normal visual inspection and Yes full ROM Respiratory: Normal respiratory effort and able to speak in complete sentences. Clear to auscultation bilaterally Cardiovascular: Regular rate and rhythm. Normal S1 and S2 GI: Normal to inspection. Soft to palpation and nontender Skin: No rashes or lesions noted Neuro: Patient oriented x3 Extremities: Feet intact bilaterally, positive sensation with the use of monofilament Results - Labs: Hemoglobin A1c 8.3 Plan Discontinuation of Trulicity is advised due to visual side effects, with an alternative of an insulin pump suggested for superior glucose control. Ongoing management with her technical sme is essential. Monitoring of her Type 2 Diabetes with vigilant blood glucose control is necessary to prevent complications, and regular eye exams are reinforced. Follow-up will occur in four months to reassess diabetes management and obesity. Discussion Notes During our discussion, I reviewed the potential side effects and disadvantages of continuing Trulicity, especially its impact on visual changes. I suggested the alternative use of an insulin pump for refined glycemic control. The risks and benefits of this approach were explained, considering her current suboptimal A1c levels. Future follow-ups are scheduled in four months, coinciding with her endocrinology appointments, to assess her condition and modify the management plan if necessary. Consistent eye examinations were deemed necessary due to her diabetes and potential retinal impact. Patient Instructions - Discontinue use of Trulicity and monit or for resolution of visual changes. - Engage with your technical sme about the potential use of an insulin pump. - Monitor blood glucose levels regularly to maintain control. - Continue regular eye exams as per the schedule given by your ophthalmologists. - Return for follow-up in approximately four months or earlier if necessary. [facility] Medical History Hypertensive retinopathy Plantar fascial fibromatosis Rosacea Diabetes Surgical History Status post total right knee replacement Social History Housing: House Alcohol intake: current Alcohol intake frequency: does not drink Patient Tobacco Use Status: Former Tobacco user Years Smoked: 40 years ago e-Cigarette/Vaping Use: Never Used Second Hand Smoke Exposure: No service: No Current occupational status: employed Current occupation: [employer] Current occupational exposures/hazards: No Cognitive needs: No Hearing needs: No Vision needs: No Questionnaire PHQ-9 Over the last 2 weeks, how often have you been bothered by any of the following problems? 1. Little interest or pleasure in doing things: not at all 2. Feeling down, depressed, or hopeless: not at all 3. Trouble falling or staying asleep, or sleeping too much: not at all 4. Feeling tired or having little energy: not at all 5. Poor appetite or overeating: not at all 6. Feeling bad about yourself - or that you are a failure or have let yourself or your family down: not at all 7. Trouble concentrating on things, such as reading the newspaper or watching television: not at all 8. Moving or speaking so slowly that other people could have noticed. Or the opposite - being so fidgety or restless that you have been moving around a lot more than usual: not at all 9. Thoughts that you would be better off or of hurting yourself in some way: not at all Total score: 0 Depression Screening Interpretation: Negative Depression Screening Done: Yes 78334 - PHQ-9 Billing: Yes Source: Developed by Drs. Rangel Hoover, Jasmina Eller, Jeovanny Rosa and colleagues, with an educational evan from [employer]. Thrive Questionnaire Date Thrive assessed: 12/20/24 I am a: Patient What is your living situation today?: I have a steady place to live Within the past 12 months, did the food you bought not last and you didn't have the money to get more?: Never true Within the past 12 months, did you worry whether your food would run out before you got money to buy more?: Never true Do you have trouble paying for medicines?: No Do you have trouble getting transportation to medical appointments?: No Do you have trouble paying your heating and electricity bill?: No Do you have trouble taking care of your child, family member or friend?: No Do you have trouble with day-to-day activities such as bathing, preparing meals, shopping, managing finances, etc.?: No Are you currently unemployed and looking for a job?: No Are you interested in more education?: No Please select the resources that you would like help with: None Currently or been in a relationship where the following occur: No concerns reported THRIVE Score: 0 AUDIT C Alcohol Use Questionnaire (AUDIT-C) 1. How often do you have a drink containing alcohol?: Monthly or less 2. How many drinks containing alcohol do you have on a typical day when you are drinking?: 1 or 2 3. How often do you have six or more drinks on one occasion?: Never Total Score: 1 Score Reviewed/Action Taken: Yes LYN-7 AMB Questionnaire LYN-7 Date LYN - 7 assessed: 12/20/24 Feeling nervous, anxious, or on edge: 0 = Not at all Not being able to stop or control worryin = Not at all Worrying too much about different things: 0 = Not at all Trouble relaxin = Not at all Being so restless that it is hard to sit still: 0 = Not at all Becoming easily annoyed or irritable: 0 = Not at all Feeling afraid as if something awful might happen: 0 = Not at all Total LYN-7 score (0-4 normal; 5-9 mild; 10-14 moderate; 15-21 severe): 0 Source: Developed by Drs. Rangel Hoover, Jasmina Eller, Jeovanny Rosa and colleagues, with an educational evan from [employer]. LYN-7 Assessment Billing LYN-7 Assessment Tool: LYN-7 Assessment 08676 Physical exam (Primary Care) Vital Signs: Last Vital Signs Pulse 75 12/20/24 15:55 BP 102/66 12/20/24 15:55 Pulse Ox 96 12/20/24 15:55 Oxygen Delivery Method Room Air 12/20/24 15:55 BMI result Body Mass Index 41.6 Tobacco/Smoking Status: Tobacco use Status Tobacco use date assessed 12/20/24 12/20/24 16:03 Patient Tobacco Use Status Former Tobacco user 12/20/24 15:54 e-Cigarette/Vaping Use Never Used 12/20/24 15:54 PHQ-9: PHQ-9 Score PHQ-9: Total score 0 12/20/24 16:41 Depression Screening Interpretation: Negative Thrive Assessment: Date of Thrive Assessment Date Thrive assessed 12/20/24 12/20/24 16:03 Currently or been in a relationship where the following occur: No concerns reported Coding Level of Care Code Est Pt Prev Care 40-64y(58754) Diagnoses Physical exam Z00. Vitamin D deficiency E55.9 Diabetes E11.9 Additional Codes LYN-7 Assessment Billing - LYN-7 Assessment Tool: LYN-7 Assessment 94422 ([id number]) PHQ-9 - 09328 - PHQ-9 Billing: Yes ([id number]) Assessment & Plan Assessment & Plan (1) Physical exam: Code(s): Z00.00 - Encounter for general adult medical examination without abnormal findings Category: Medical (2) Vitamin D deficiency: Code(s): E55.9 - Vitamin D deficiency, unspecified Category: Medical (3) Diabetes: Code(s): E11.9 - Type 2 diabetes mellitus without complications Category: Medical Plan . Orders: Orders Complete Blood Count Auto Diff Today Z00.00 - Encounter for general adult medical examination without abnormal findings Comprehensive [place]. Panel Fast Today Z00.00 - Encounter for general adult medical examination without abnormal findings TSH reflex Free T4 Today Z00.00 - Encounter for general adult medical examination without abnormal findings UA CC w/rflx Micro + Cult Today Z00.00 - Encounter for general adult medical examination without abnormal findings Lipid Panel Today Z00.00 - Encounter for general adult medical examination without abnormal findings Vitamin D 25-OH Total Today E55.9 - Vitamin D deficiency, unspecified, Z00.00 - Encounter for general adult medical examination without abnormal findings Medications: Changed From insulin degludec (Tresiba FlexTouch U-200 insulin) subcutaneously bedtime; 140 tresiba 45 mL 0RF To insulin degludec (Tresiba FlexTouch U-200 insulin) 120 units subcut BEDTIME
[2024-12-20 15:55] VITALS: BP 102/66; PULSE 75; O2SAT 96; BMI 41.6
--- OUTSIDE RECORDS SUMMARY | 2024-12-20 17:55 | XMS_ITS | Data Portability ---
Author Organization [place] - [facility], Allergy Address [address] [address] Care Team Providers Care Credit Checker Name Role Phone CARLYLEKALLIE KELLEY Primary Care Provider Assessment Encounter Date Assessment [...] at a future visit and discussed tinnitus [email or web address] Not available 07/12/2024 11:16:49 10/12/2024 10/12/2024 58-year-old female presents for reevaluation. Audiometric testing today shows mild sensorineural hearing loss bilaterally. She would be a candidate for amplification but is not yet ready yet. We discussed the relationship between tinnitus and hearing loss. Discussed that hearing aids would help but she will continue with masking technique. Discussed avoidance of triggers such as caffeine and stress when possible. Will call for reevaluation if she has any changes to her hearing or worsening of symptoms. In regard to sinus infection. Recommended a course of doxycycline. I have also recommended she begin Flonase as she has significant turbinate and nasal mucosa hypertrophy. Cross and application discussed. Follow-up in 1 month for reevaluation. If persistent symptoms consider CT sinus. nette Not available 10/12/2024 12:11:07 Plan of Treatment Reminders Order Date Submit Date Provider Last Modified By Organization Details Last Modified Time Details Appointments None recorded. Lab None recorded. Referral None recorded. Procedures None recorded. Surgeries None recorded. Imaging None recorded. Medication Orders doxycycline hyclate 100 mg tablet 2024 025 [facility] #[id number], [address] [facility] [place], [address], 5 12:11:47 Patient TargetsNo targets recorded. Patient InstructionsNo instructions recorded. Reason for Referral None Reported. Results Created Date Observation Date Name Description Value Unit Range Abnormal Flag Note LastModifiedBy Organization Detail LastModifiedTime 10/12/19 25 audio gram No observ ation record ed. BARCODE Not Available 2024 13:47:08 Result Notes None recorded. Problems Name Problem SNOMED Code Status Onset Date Resolution Date Notes Provider Name and Address Organization Details Recorded Time Bilateral tinnitus 58902089163 02 Active 2020 Tinnitus, bilateral ; Note: Date Diagnosed : 1 9:41 AM (H93.13) Not Available [facility] 4 02:32:07 Sensorine ural hearing loss of bilateral ears 313038453 Active 2020 Sensorine ural hearing loss, bilateral ; Note: Date Diagnosed : 1 9:41 AM (H90.3) Not Available [facility] 4 02:31:58 Mass of neck 659156999 Active 2020 Localized swelling, mass and lump, neck; Note: Date Diagnosed : 1 9:41 AM (R22.1) Not Available [facility] 4 02:31:56 Neck swelling 889763184 Active 2020 Localized swelling, mass and lump, neck; Note: Date Diagnosed : 1 9:41 AM (R22.1) Not Available [facility] 4 02:31:56 Hypertrop hy of nasal turbinate s 12595670 Active 2023 ÁNGEL JAVIER MD [address] [place] [address], [place], [address] , [place] - [facility] 4 11:15:41 Acute maxillary sinusitis 71891205 Active 2024 ANDERSON DOSHI PA-C [address] [facility],[place] [address], [facility] [place], [address] , [facility] - [facility] 5 12:11:26 Problem Notes None recorded. Procedures Surgical History Date Name Laterality Status Provider Name and Address Organization Details Recorded Time 10/12/2024 Comp Audio with Tymps (26494 & 10463) completed CHANTAL CAREY [place], CCC-A [address] [facility], [place], [address], [facility] - [facility] 10/12/2024 11:46:04 Imaging Results Imaging Date Name Status LastModified by Organiz ation Details LastModified Time 10/12/2024 audiogram completed BARCODE Information no t available 10/12/2024 13:47:08 Procedure Notes None recorded. Medical Equipment None Reported. Allergies Allergen ID Allergen Name Allergen Category Reaction Reaction Severity Criticality Documentation Date Start Date Code Code System Note Provider Name and Address Organization Details Recorded Time 68836 codeine medicatio n other Not available Not available 02/14/2024 2670 RxNorm React ion: Unkno wn; Not Available [facility] 4 00:56:34 26354 Penicilli n Not available other Not available Not available 02/14/2024 07660 RxNorm React ion: Unkno wn; Not Available [facility] 4 00:56:35 79954 Substance with sulfonami de structure and antibacte rial mechanism of action (substanc e) medicatio n nausea Not available Not available 02/14/2024 85672 8003 SNOMED React ion: vomit ing;; Not Available [facility] 4 00:56:36 Medications Name Sig Start Date Stop Date Status Note LastModified by Organization Details LastModified Time doxycycli ne hyclate 100 mg capsule PLEASE SEE ATTACHED FOR DETAILED DIRECTIO NS active Not Available Not Available No t Available clindamyc in HCl 300 mg capsule TAKE 2 CAPSULES BY MOUTH 1/2 HOUR PRIOR TO DENTAL APPOINTM ENT 07/12 completed Not Available Not Available Not Available cefpodoxi me 200 mg tablet TAKE 1 TABLET (ORAL) 2 TIMES PER DAY FOR 5 DAYS MUST ADMINIST ER WITH A MEAL/TERRELL D active Not Available Not Available No t Available azithromy shahla 250 mg tablet TAKE 2 TABLETS BY MOUTH TODAY, THEN TAKE 1 TABLET DAILY FOR 4 DAYS DIRECTED active Not Available Not Available No t Available metoprolo l succinate ER 50 mg tablet,ex tended release 24 hr TAKE 1 TABLET BY MOUTH DAILY active Not Available Not Available No t Available glipizide ER 10 mg tablet, extended release 24 hr TAKE 1 TABLET BY MOUTH EVERY MORNING. 09/11 completed Not Available Not Available Not Available lisinopri l 20 mg tablet TAKE 1 TABLET BY MOUTH DAILY active Not Available Not Available No t Available glipizide ER 5 mg tablet, extended release 24 hr 07/12 completed Medicati on ID: [id number] B rand Name: glipizid e Send Method: E-Prescr ibed Sub s Allowed: subs OK Medic ationGen ericName : glipizid e Not Available Not Available Not Available doxycycli ne hyclate 100 mg tablet Take 1 tablet twice a day by oral route for 14 days. active Not Available Not Available No t Available Novolog FlexPen U-100 Insulin aspart 100 unit/mL (3 mL) subcutane ous MAX DAILY DOSE 150 UNITS. TAKE 3 TIMES DIALY WITH MEAL FOLLOWIN G SLIDING SCALE. active Not Available Not Available No t Available azelaic acid 15 % topical gel APPLY IN MORNING AND EVENING TO FACE REDNESS active Not Available Not Available No t Available omega-3 acid ethyl esters 1 gram capsule 10/08 completed Not Available Not Available Not Available Januvia 100 mg tablet TAKE 1 TABLET BY MOUTH EVERY DAY START 7 DAYS AFTER LAST OZEMPIC DOSE active Not Available Not Available No t Available Jardiance 25 mg tablet TAKE 1 TABLET BY MOUTH DAILY IN THE MORNING active Not Available Not Available No t Available Trulicity 1.5 mg/0.5 mL subcutane ous pen injector 04/02 completed Not Available Not Available Not Available Xigduo XR 10 mg-1,000 mg tablet,ex tended release 10/08 completed Not Available Not Available Not Available Tresiba FlexTouch U-200 insulin 200 unit/mL (3 mL) subcutane ous pen 110 units every day by sub-q route. 2024 active Not Available Not Available Not Avai lable Tresiba FlexTouch U-100 insulin 100 unit/mL (3 mL) subcutane ous pen active Not Available Not Available Not Available Nexlizet 180 mg-10 mg tablet TAKE 1 TABLET BY MOUTH DAILY FOR 90 DAYS 07/12 completed Not Available Not Available Not Available Trulicity 4.5 mg/0.5 mL subcutane ous pen injector INJECT 1 PEN SUBCUTAN EOUSLY EVERY WEEK 07/12 completed Not Available Not Available Not Available Ozempic 1 mg/dose (4 mg/3 mL) subcutane ous pen injector 08/17 completed Not Available Not Available Not Available Mounjaro 5 mg/0.5 mL subcutane ous pen injector INJECT 1 PEN SUBCUTAN EOUSLY ONCE WEEKLY 10/08 completed Not Available Not Available Not Available Mounjaro 2.5 mg/0.5 mL subcutane ous pen injector INJECT 2.5 MG SUBCUTAN EOUSLY EVERY WEEK 09/02 completed Not Available Not Available Not Available Dexcom G7 Lifestyle Consultant USE DIRECTED FOR DIABETES CONTROL active Not [...] Updated DateTime 07/12/2024 165.1 cm 40.1 kg/m2 006734.76 g Radhika Dubois [place] - [facility] 07/12/2024 10:55:11 Date Recorded Body height Body mass index (BMI) Body weight Provider Name and Address Organization Details Last Updated DateTime 10/12/2024 165.1 cm 40.1 kg/m2 220649.76 g Craig Jacobo [place] - [facility] 10/12/2024 11:11:52 Social History None recorded. Functional Status None recorded. Mental Status None recorded. Family History Nothing Reported. Medical History Condition Response Hearing Loss Y Gynecological HistoryNo gynecological history recorded. Obstetrics History GPAL:G 0 P 0 0 0 0 Past Encounters Encounter ID Performer Location Encounter Start Date Encounter Closed Date Diagnosis/Indication Diagnosis SNOMED-CT Code Diagnosis ICD10 Code Diagnosis Note [id number] ÁNGEL JAVIER MD [facility] [address] [address] 07/12/2024 09:56:07 07/12/2024 11:17:19 Hypertrophy of nasal turbinates 59037589 J34.3 Bilateral tinnitus 07750 30420 102 H93.13 [id number] ADIA BERMUDEZ MD [facility] [address] [address] 10/12/2024 10:51:01 10/12/2024 12:10:02 Bilateral tinnitus 1861254051 102 H93.13 Sensorineu ral hearing loss of bilateral ears 162231628 H90.3 Audiologic al evaluation results:Ri ght ear:{{Norm al Normal through 2 kHz Mild M oderate Mo derately-s evere Sommer re Profoun d Normal/ borderline normal hearing thru 2000Hz#}} {{hearing hearing. s loping to a mild slopi ng to a moderate s loping to moderately severe slo ping to severe slo ping to profound f lat high frequency low frequency mid frequency cookie bite leon curve slop ing to a mild SNHL#}} {{with* se nsorineura l hearing loss with condu ctive hearing loss with mixed hearing loss with}} {{excellen t* good fa ir poor no measurable }} word recognitio n.Left ear:{{Norm al* Normal through 2 kHz Mild M oderate Mo derately-s evere Sommer re Profoun d}} {{hearing* hearing. sloping to a mild slopi ng to a moderate s loping to moderately severe slo ping to severe slo ping to profound f lat high frequency low frequency mid frequency cookie bite leon curve}} {{with* se nsorineura l hearing loss with condu ctive hearing loss with mixed hearing loss with}} {{excellen t* good fa ir poor no measurable }} word recognitio n. Tympanomet ry:Right Ear:{{Type A Type As Type Ad* Type C Type C, shallow & rounded Ty pe B Type B with large volume Cou ld not maintain a hermetic seal}}Left Ear:{{Type A Type As Type Ad* Type C Type C, shallow & rounded Ty pe B Type B with large volume Cou ld not maintain a hermetic seal}} Acute maxi llary sinusitis 96902239 J01.00 Health Concerns Section Related Observation LastModified by Organization Detai ls LastModified Time None Recorded Concern Status LastModified by Organization Details LastModified Time None Recorded Advance Directives Directive None Recorded Payers Encounter Date Sequence Insurance Name Policy Number Policy [place] Covered Member ID [place] Member ID Guarantor Name 07/12/2024 1 [employer] IN[employer]ITY PLAN (PPO) [id number] 1 Horacio Meraz [id number] Annie Meraz 10/12/2024 1 [employer] - [employer] INDEMNITY PLAN (PPO) [id number] 1 Horacio Meraz [id number] Annie Meraz Notes Date Note Type Note Provider Name and Address Organization Details Recorded Time 07/12/2024 text/html right nasal polyp06/03/24 Urgent care visit for bilateral sinusitis given doxy with improvementno sig hx of recurrent sinus infectionsgood sense of smellno epistaxisno imaging studies PV 07/14/21 Theron - left facial swelling likely mild parotitis, chronic tinnitus ÁNGEL JAVIER MD [address] [place] [address],[address], [address], [facility] - [facility] 07/12/2024 11:17:16 10/12/2024 text/html 58-year-old phoebe solares presents for evaluation of 2 issues. First she was referred for tinnitus. Tinnitus bilaterally but worse on the left side. Help to have masking technique at night. I no significant hearing loss CT subjectively.. Secondly she continues to have recurrent sinus infection. She was treated last week with a Z-Arsenio but has had no benefit. She has had pain and pressure across her cheekbones and into her teeth with thick nasal drainage since Josh. ADIA CONTRERAS MD [address] [place] [address],[address], [address], [facility] - [facility] 10/12/2024 13:02:27 OBGyn Episode No OBEpisode recorded.
--- OUTSIDE RECORDS SUMMARY | 2024-12-20 17:55 | XMS_ITS ---
Author Organization [facility] Address [address] [facility] [place] [address] Care Team Providers Care Sanitation Officer Name Role Phone Reuben Fernandes Primary Care Provider Unav Jeff Hua Unavailable [phone] Allergies Allergen (clinical drug ingredient) Drug/Non Drug [...] Blood pressure systolic 143 mm Hg 03/14/20 Blood pressure diastolic 92 mm Hg 024 Encounters Encounter Location Date Provider Diagnosis [facility] [place] [address] [place] [address] 03/14/2024 Jeff Kim Pain in left foot [...] Details Follow Up: 3 Weeks, Reason: Provider Name:Tomasa cortez, 01/17/2025 04:00:00 PM, [address] [place] [address], [phone], Progress Notes * Odalis MERAZOB: [birth year] (58 yo F)Acc No.[id number]:03/14/2024 Progress Note Patient:?Annie Meraz Provider:?Jeff Kim DPM :1965???Age:58 Y???Sex:Female D ate:03/14/2024 Address:[address] [place] [address] [facility] Pcp:HOMER Damon Subjective: * Chief Complaints: * [...] ?Marital status: . 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 * Medications:?TakingOzempic g lipiZIDE 10 MG Tablet [...] 8.2 * Examination: ???Ophthalmology Referral: ?DIABETES EYE EXAM?Diabetic Retinopathy Screening:?Yes ?Findings of Diabetic Eye Exam:?no retinopathy?General Examination: ?GENERAL APPEARANCE:?pleasant, alert, well nourished, well [...] Kim DPM Date:? 024 Generated for [place] amezcua/Radha/Jenae on:?12/20/2024 05:55 PM EDT History and Physical Notes * HPI (History [...]
--- OUTSIDE RECORDS SUMMARY | 2024-12-20 17:55 | XMS_ITS ---
Author Organization [facility] Address [address] [place] [address] Care Team Providers Care Edge Finisher Name Role Phone Reuben Fernandes Primary Care Provider Unav ailJeff Hartley Unavailable [phone] Ayoub Encounters Encounter Location Date Provider Diagnosis [address] [address] 11/27/2024 Jeff Kim Plan Of Treatment Next Appt Details Provider Name:Tomasa Moreira diego, 01/17/2025 04:00:00 PM, [address] [place], [address], Progress Notes * Odalis MERAZOB: [birth year] (59 yo F)Acc No.[id number]:11/27/2024 Progress Note Patient:?Annie MERAZ Provider:?Jeff Kim DPM :1965???Age:58 Y???Sex:Female D ate:11/27/2024 Address:[address] [place] [address] Pcp:HOMER Damon Subjective: * Chief Complaints: * ???1. Dr Ayoub. * Medical History:? Objective: * Vitals:? Assessment: Plan: * Treatment: * Images: * The named appointment provid er may or may not be the originator of this progress note, and it is not deemed complete until electronically signed by the appointment provider. Sign off status: Pending * Provider:Nick Kim DPM Date:? 025 Generated for [place] amezcua/Radha/Jenae on:?12/20/2024 05:55 PM EDT
--- OUTSIDE RECORDS SUMMARY | 2024-12-20 17:56 | XMS_ITS | Continuity of Care Document ---
Author Organization [facility] Address [address] [place] [id number]- Support Name Relationship Address Phone HELEN, BHUPENDRA Personal Relationship Unknown U navailable HELEN, BHUPENDRA Personal Relationship Unknown U navailable HELEN, BHUPENDRA spouse Unknown Unavailabl e HELEN, BHUPENDRA Personal Relationship Unknown U navailable HELEN, BHUPENDRA Personal Relationship Unknown U navailable HELEN, BHUPENDRA Personal Relationship Unknown U navailable HELEN, BHUPENDRA spouse Unknown Unavailabl e HELEN, BHUPENDRA Personal Relationship Unknown U navailable HELEN, BHUPENDRA Personal Relationship Unknown U navailable HELEN, BHUPENDRA Personal Relationship Unknown U navailable HELEN, FELISHA child Unknown Unavailabl e HELEN, BHUPENDRA Personal Relationship Unknown U navailable HELEN, BHUPENDRA Personal Relationship Unknown U navailable HELEN, BHUPENDRA Personal Relationship Unknown U navailable HELEN, BHUPENDRA Personal Relationship Unknown U navailable HELEN, BHUPENDRA Personal Relationship Unknown U navailable HELEN, BHUPENDRA Personal Relationship Unknown U navailable HELEN, BHUPENDRA Personal Relationship Unknown U navailable HELEN, BHUPENRDA Personal Relationship Unknown U navailable HELEN, BHUPENDRA Personal Relationship Unknown U navailable Care Team Providers Care Shop Assistant Name Role Phone Jeannine CASE, Reuben Abarca Primary Care Physician [phone] Encounter [facility] Date(s): 12/06/24 - 12/13/24 [facility] [address] [place] [id number] Encounter Diagnosis Controlled type 2 diabetes mellitus(Discharge Diagnosis) - 12/06/24 Attending Physician: Barrington Werner MD Encounter Type: Office Visit Allergies, Adverse Reactions, Alerts Substance Criticality Severity Reaction Reaction Severity Status codeine GI upset Active penicillins hives Active Lactose Active sulfa drugs GI upset Active Nickel Active Immunizations Given and Recorded Vaccine Date Status Refusal Reason SARS-CoV-2 (COVID-19) mRNA-1273 vaccine 1 12/30/20 Recorded SARS-CoV-2 (COVID-19) mRNA BNT-162b2 vac 12/02/20 Recorded influenza virus vaccine, inactivated 11/30/18 Give n pneumococcal 23-valent vaccine 2 05/25/18 Given Diphtheria/Tet/Pertussis, Acel (oldterm) 02/17/18 Given Tetanus Toxoid 3 03/03/07 Recorded 1Result Comment: left deltoid lot [id number] exp 01-29-2212 [facility] 2Result Comment: [05/25/2018] [facility] [id number] 3Location History: Dr Jann Noonan Medications acetaminophen 325 mg oral tablet 650 mg, By Mouth, Every 6 hours, May take OTC not to exceed 4000 mg/day, Refills 0, Maintenance, 07/02/23 9:21:00 AM EDT, Partial fill upon patient request if the prescription is for a schedule II opioid drug. Start Date: 07/02/23 Status: Ordered Repeat number: 1 Aspirin Tablet 325 mg, By Mouth, 2 times a day, Refills 0, Maintenance, 07/02/23 9:21:00 AM EDT, Partial fill upon patient request if the prescription is for a schedule II opioid drug. Start Date: 07/02/23 Status: Ordered Repeat number: 1 azelaic acid 15% topical gel 1 application, Topically, Daily, # 45 Gm, 0 Refills, Maintenance, 06/14/23 10:46:00 AM EDT, Gel, Partial fill upon patient request if the prescription is for a schedule II opioid drug. Start Date: 06/14/23 Status: Ordered Quantity: 45.0 Unit: g Repeat number: 1 Colace Capsule 100 mg, 1, capsule, By Mouth, 2 times a day, Refills 0, Maintenance, 07/02/23 9:21:00 AM EDT, Partial fill upon patient request if the prescription is for a schedule II opioid drug. Start Date: 07/02/23 Status: Ordered Repeat number: 1 DEXCOM G7 SUPERVISOR MOLD YARD DEXCOM G7 SUPERVISOR MOLD YARD, See Instructions, # 1 Unknown, 0 Refills, Maintenance, USE DIRECTED FOR DIABETES CONTROL, 06/17/24 7:13:00 PM EDT, 165.1, cm, 05/02/24 15:54:00 EDT, Height, 112.7, kg, 07/02/23 1:27:00 EDT, Dry Weight Start Date: 06/17/24 Status: Ordered Quantity: 1.0 Unit: Unknown Repeat number: 1 Dexcom G7 Drafter Cartographic Dexcom G7 Drafter Cartographic, See Instructions, # 1 each, Refills 0, Tot. Refills 0, Maintenance, Use as directed for Diabetes Control, 05/03/24 1:20:00 PM EDT, Supply, 165.1, cm, 05/02/24 15:54:00 EDT, Height, 112.7, kg, 07/02/23 1:27:00 EDT, Dry Weight Start Date: 05/03/24 Status: Ordered Quantity: 1.0 Unit: each Repeat number: 1 Indication: Type 2 diabetes mellitus without complications Dexcom G7 Sensor Dexcom G7 Sensor, See Instructions, # 9 each, Refills 3, Tot. Refills 3, Maintenance, Use as directed for Diabetes Control, 05/03/24 1:20:00 PM EDT, Supply, 165.1, cm, 05/02/24 15:54:00 EDT, Height, 112.7, kg, 07/02/23 1:27:00 EDT, Dry Weight Start Date: 05/03/24 Status: Ordered Quantity: 9.0 Unit: each Repeat number: 4 Indication: Type 2 diabetes mellitus without complications Jardiance 25 mg oral tablet 1 tablet = 25 mg, By Mouth, Daily in AM, 90 day supplies, # 90 tablet, 3 Refills, Maintenance, 08/01/24 10:23:00 AM EDT, Tablet, [facility]/pharmacy #[id number], Partial fill upon patient request if the prescription is for a schedule II opioid drug., 165.1, cm, 08/01/24 9:54:00 EDT, Height, 110.9, kg, 08/01/24 9 :54:00 EDT, Dry Weight Start Date: 08/01/24 Stop Date: 07/27/25 Status: Ordered Quantity: 90.0 Unit: tablet Repeat number: 4 Indication: Type 2 diabetes mellitus without complications lisinopril 20 mg oral tablet 1, tablet, By Mouth, Daily, # 90 tablet, Refills 3, Tot. Refills 3, Maintenance, 03/06/20 8:00:00 AM EDT, Route to Pharmacy Electronically, [facility]/pharmacy #[id number], 165, cm, 09/13/19 8:03:00 EST, Height, 111.3, kg, 06/07/18 10:54:00 EDT, Dry Weight Start Date: 03/06/20 Status: Ordered Quantity: 90.0 Unit: tablet Repeat number: 4 Metoprolol Succinate ER 50 mg oral tablet, extended release 1 tablet = 50 mg, By Mouth, Daily, # 30 tablet, 0 Refills, Maintenance, 06/21/23 8:13:00 AM EDT, ER Tablet, Partial fill upon patient request if the prescription is for a schedule II opioid drug. Start Date: 06/21/23 Status: Ordered Quantity: 30.0 Unit: tablet Repeat number: 1 MiraLax Powder 1 pack/packet = 17 Gm, By Mouth, Daily, PRN Constipation, 0 Refills, Maintenance, 07/02/23 9:21:00 AM EDT, Powder, Partial fill upon patient request if the prescription is for a schedule II opioid drug. Start Date: 07/02/23 Status: Ordered Repeat number: 1 Nexlizet 180 mg-10 mg oral tablet 1 tablet, By Mouth, Daily, # 30 tablet, 0 Refills, Maintenance, 06/14/23 10:45:00 AM EDT, Tablet, Partial fill upon patient request if the prescription is for a schedule II opioid drug. Start Date: 06/14/23 Status: Ordered Quantity: 30.0 Unit: tablet Repeat number: 1 NovoLOG FlexPen 100 units/mL subcutaneous solution See Instructions, Max daily dose 150 units. take 3 times dialy with meal following sliding scale., # 135 mL, 3 Refills, Maintenance, 10/05/24 4:38:00 PM EST, [facility]/pharmacy #[id number], Partial fill upon patient request if the prescription is for a schedule II opioid drug., 165.1, cm, 10/04/24 16:01:00 EST, Height, 111.9, kg, 10/04/24 16:01:00 EST, Dry Weight Start Date: 10/05/24 Status: Ordered Quantity: 135.0 Unit: mL Repeat number: 4 OneTouch Verio Test Strips See Instructions, # 400 each, Refills 1, Tot. Refills 1, Maintenance, TEST BLOOD SUGAR QID DX E11.9IDDMII SHELLY LIFETIME PER RACIEL WHITEC, 06/21/18 11:39:22 AM EDT, Compound Start Date: 06/21/18 Status: Ordered Quantity: 400.0 Unit: each Repeat number: 2 pantoprazole 40 mg oral delayed release tablet = 40 mg, By Mouth, Daily, 0 Refills, Maintenance, 07/02/23 9:21:00 AM EDT, EC Tablet Start Date: 07/02/23 Status: Ordered Repeat number: 1 PEN NEEDLES 31G 4 MM PEN NEEDLES 31G 4 MM, See Instructions, # 200 each, Refills 11, Tot. Refills 11, Maintenance, USE 4time per day WITH INSULIN DX E11.9 MII, 10/04/24 4:45:00 PM EST, Compound, 165.1, cm, 10/04/24 16:01:00 EST, Height, 111.9, kg, 10/04/24 16:01:00 EST, Dry Weight Start Date: 10/04/24 Status: Ordered Quantity: 200.0 Unit: each Repeat number: 12 Indication: Type 2 diabetes mellitus without complications senna 187 mg oral tablet 1 tablet = 8.6 mg, By Mouth, Daily at bedtime, PRN as needed for constipation, 0 Refills, Maintenance, 07/02/23 9:21:00 AM EDT, Tablet, Partial fill upon patient request if the prescription is for a schedule II opioid drug. Start Date: 07/02/23 Status: Ordered Repeat number: 1 Tresiba FlexTouch 200 units/mL subcutaneous solution = 110 units, Subcutaneous Infusion, Daily, 90 days supplies, # 52 mL, 3 Refills, Maintenance, 08/01/24 10:21:00 AM EDT, [facility]/pharmacy #[id number], Partial fill upon patient request if the prescription is for a schedule II opioid drug., 165.1, cm, 08/01/24 9:54:00 EDT, Height, 110.9, kg, 08/01/24 9:54:00 EDT, Dry Weight Start Date: 08/01/24 Status: Ordered Quantity: 52.0 Unit: mL Repeat number: 4 Indication: Type 2 diabetes mellitus without complications Trulicity Pen 0.75 mg/0.5 mL subcutaneous solution = 0.75 mg, Subcutaneous Infusion, Every week, # 2 mL, 11 Refills, Maintenance, 12/07/24 8:36:00 AM EST, [facility]/pharmacy #[id number], Partial fill upon patient request if the prescription is for a schedule II opioid drug., 165.1, cm, 12/06/24 13:11:00 EST, Height, 114.5, kg, 12/06/24 13:11:00 EST, Dry Weight Start Date: 12/07/24 Status: Ordered Quantity: 2.0 Unit: mL Repeat number: 12 Indication: Type 2 diabetes mellitus without complications Problem List Condition Confirmation Course Effective Dates Status Health St atus Informant Abdominal pain Confirmed Active Anxiety Confirmed Active GERD (gastroesophageal reflux disease) Confirmed Active HTN (hypertension) Confirmed Active Polycystic ovaries Confirmed Active Severe obesity Confirmed Active Controlled type 2 diabetes mellitus Confirmed Active Type 2 diabetes mellitus Confirmed Active Diagnosis Diagnosis Type Effective Dates Health Status Clinical Service Informant Controlled type 2 diabetes mellitus Discharge Diagnosis 12/06/24 Vital Signs Most recent to oldest [Reference Range]: 1 Height 165.1 cm (12/06/24 1:11 PM) Weight 114.5 kg (12/06/24 1:11 PM) Pulse Rate [55-90 bpm] 79 bpm (12/06/24 1:11 PM) Body Mass Index [18.5-24.99 kg/m2] 42.01 kg/m2 *>HHI* (12/06/24 1:11 PM) Blood Pressure [90-138/55-84 mm Hg] 118/ 79mm Hg (12/06/24 1:11 PM) Blood pressure sites Arm, left (12/06/24 1:11 PM) Dry Weight 114.5 kg (12/06/24 1:11 PM) Weight Obtained Via Standing scale (12/06/24 1:11 PM) Dry Weight Obtained Via Standing scale (12/06/24 1:11 PM) Social History Social History Type Response Smoking Status Former smoker, quit more than 30 days ago; Other: Quit 1987; entered on: 02/20/19 Sex Sex Representation Female (finding) Note * Gemma Desai MA: PERFORM Event Display: Patient Education/Instruction Authored Date: [id number] Ambulatory Adult Visit Summary [facility] [address] [place] [id number] Name: KAVON CERVANTES : 1965?? Visit: 12/06/2024 13:08?? Ambulatory Visit Instructions ?? Your Care Team Primary Care Provider Jeannine CASE , Reuben Abarca? This Visit Provider Barrington Werner MD Your Diagnosis Controlled type 2 diabetes mellitus Vitals Signs Pulse Rate: 79 bpm Height: 165.1 cm Systolic Blood Pressure: 118 mm Hg Weight: 114.5 kg Diastolic Blood Pressure: 79 mm Hg Body Mass Index:??42.01 kg/m2??Critical ?? Body surface area: 2.29 What to do next Instructions From Your Provider -increase Tresiba??to 120 units -increase the scale to following ?? Blood Sugar With Meal When not eating ??<70 Treat hypoglycemia Treat hypoglycemia ??71-150 ??Meal =??26??(need to adjust based on food) 0 ??151-200 ??Meal + 3=29 3 ??201-250 ??Meal + 6=32 6 ??251-300 ??Meal + 9=35 9 ??301-350 ??Meal + 12=38 12 ??350 or above ??Meal + 15=41 15 ?? -I will check for Trulicity??and Humalog U-200 coverage Scheduled Follow-Up Appointments Tuesday. 2024 2:00 PM EDT ?? Where: Diabetic Teaching Status: Pending Follow-Up Appointments Follow Up with??Barrington Werner MD When:??03/21/2025 01:25 PM EDT Where: [address] [facility] [place] [address]- Medications The list below reflects the information in our records and provided by you today along with any changes made during this visit. Please continue your medications until treatment is completed or stopped by your provider. If this is different from the information you have or there are other questions,please contact the prescribing provider. What How Much When Why Instructions Unchanged Acetaminophen (acetaminophen 325 mg oral tablet) 650 Milligram Oral Every 6 hours May take OTC not to exceed 4000 mg/ day ?? Unchanged Aspirin (Aspirin Tablet) 325 Milligram Oral Twice a day Unchanged Azelaic Acid Topical (azelaic acid 15% topical gel) 1 liliane Topically Daily Unchanged bempedoic acid-ezetimibe (Nexlizet 180 mg-10 mg oral tablet) 1 tab(s) Oral Daily Unchanged Docusate (Colace Capsule) 100 Milligram Oral Twice a day Unchanged Durable Medical Equipment (Dexcom G7 Drafter Cartographic) See instructions Type 2 diabetes mellitus Use as directed for Diabetes Control ?? Unchanged Durable Medical Equipment (Dexcom G7 Sensor) See instructions Type 2 diabetes mellitus Use as directed for Diabetes Control ?? Unchanged Durable Medical Equipment (OneTouch Verio Test Strips) See instructions TEST BLOOD SUGAR QID DX E11.9 ??IDDMII SHELLY LIFETIME PER RACIEL ARREDONDO CLINICAL SUPERVISOR-C ?? Unchanged Durable Medical Equipment (PEN NEEDLES 31G 4 MM) See instructions Type 2 diabetes mellitus USE 4 time per day WITH INSULIN DX E11.9 ??MII ?? Unchanged empagliflozin (Jardiance 25 mg oral tablet) 1 tab(s) Oral Daily in the morning Type 2 diabetes mellitus Duration: 90 Days 90 day supplies ?? Unchanged Insulin Aspart (NovoLOG FlexPen 100 units/ mL subcutaneous solution) See instructions Max daily dose 150 units. take 3 times dialy with meal following sliding scale. ?? Unchanged insulin degludec (Tresiba FlexTouch 200 units/ mL subcutaneous solution) 110 unit(s) Subcutaneous Infusion Daily Type 2 diabetes mellitus 90 days supplies ?? Unchanged Lisinopril (lisinopril 20 mg oral tablet) 1 tab(s) Oral Daily Unchanged Metoprolol (Metoprolol Succinate ER 50 mg oral tablet, extended release) 1 tab(s) Oral Daily Unchanged Miscellaneous Rx (DEXCOM G7 SUPERVISOR MOLD YARD) See instructions USE DIRECTED FOR DIABETES CONTROL ?? Unchanged Pantoprazole (pantoprazole 40 mg oral delayed release tablet) 40 Milligram Oral Daily Unchanged Polyethylene Glycol 3350 (MiraLax Powder) 17 gram Oral Daily as needed for Constipation Unchanged Senna (senna 187 mg oral tablet) 1 tab(s) Oral Daily at Bedtime as needed for as needed for constipation Test Performed Below is a partial list of the tests performed during your Visit. You may have had other tests and procedures not included in this list. Please discuss all test results with your provider. POC GLUCOSE ([facility] SITE) POC HBA1C ([facility]) Lab Test Results Below is a partial list of the most recent Laboratory test results done during your Visit. You may have had other tests and procedures not included in this list. Please discuss all test results with your provider. Test Name Test Result Date/Time POC Glucose ([facility]) 144 mg/dL 12/06/2024 13:19 EST POC HBA1C ([facility]) 8.4 % 12/06/2024 13:21 EST Medications and Immunizations Administered Medications Given During Visit No medications given during this visit.?? Allergies (NKA means No Known Allergies) Lactose Nickel codeine??(GI upset) penicillins??(hives) sulfa drugs??(GI upset) Common Emergency Awareness Tips IS IT A STROKE? Act FAST and Check for these signs: FACE Does the face look uneven? ARM Does one arm drift down? SPEECH Does their speech sound strange? TIME Call at any sign of stroke ?? Heart Attack Signs Chest discomfort: Most heart attacks involve discomfort in the center of the chest and lasts more than a few minutes, or goes away and comes back. It can feel like uncomfortable pressure, squeezing, fullness or pain. Discomfort in upper body: Symptoms can include pain or discomfort in one or both arms, back, neck, jaw or stomach. Shortness of breath: With or without discomfort. Other signs: Breaking out in a cold sweat, nausea, or lightheaded. Remember, MINUTES DO MATTER. If you experience any of these heart attack warning signs, call to get immediate medical attention! ?? Smoking can increase your chances of developing chronic health problems and can cause harmful effects to other family members in your house. If you smoke, you are strongly encouraged to quit. Please call [employer] [facility] at [phone] or [phone] ([phone] or log in to [email or web address] for referrals to smoking cessation programs. ?? The National Suicide Prevention Hotline is available 25/04 if you or someone you know needs to find a reason to keep living. By calling 0-543-899-[employer] (9179) you'll be connected to a skilled, trained counselor at a crisis center in your area. [facility] [employer] Portal You can view and manage your care through the patient portal or by using a health care liliane of your choosing. [employer] is a website that allows you to securely view your medical information including your hospital discharge summary, office visit summaries, medications and follow-up visits. You can also request appointments, renew medications, and request access to your medical information using a health care liliane of your choosing, or just ask a question. You can enroll at [email or web address] or register during your next office visit. [facility], in keeping with [facility] guidance, no longer requires face masks for staff, patientsor visitors in most situations. Similiar to time spent indoors at other locations, there is the chance that you were exposed to repiratory viruses during your time with us (such as flu or COVID-19). If you develop symptoms concerning for a viral respiratory infection, please seek testing (and treatment if indicated) from your medical provider or home test kit. ?? Disclaimer: The information provided is of a general nature and is intended to be used in conjunction with the recommendations and advice of your health care practitioner. Every effort has been made to ensure that the information provided is accurate and complete at the time it is provided to you however, as your needs change, or, as new information becomes available, different or additional instructions may be required. ?? If you have questions, please consult with your primary care provider or pharmacist, as appropriate. This information is not intended to serve as substitution for assessment and evaluation by a qualified health care provider. If you do not have a primary care provider, you may find a [facility] provider by calling [facility] [employer] Link at [phone]. Patient Care team information Care Team Personnel Name: Divya Garcia RN Position: Whitney Onco RN Member Role: Primary Care Nurse Name: Reuben Paez NP Position: Reference Physician Member Role: PCP Address: [address] [place] [id number] Telecom: Care Team Related Persons Name: FELISHA CERVANTES Name: BHUPENDRA CERVANTES Name: BHUPENDRA CERVANTES Insurance Providers Guarantor name: KAVON CERVANTES Health Plan Information #: 1 Payer: [facility] Member Number: [id number] Policy Number: NA Group Number: [id number] Health Plan Information #: 2 Payer: [facility] Member Number: [id number] Policy Number: NA Group Number: [id number]
--- OUTSIDE RECORDS SUMMARY | 2024-12-20 17:56 | XMS_ITS ---
Author Organization [facility] Address [address] [place] [address] Care Team Providers Care Research Professor Name Role Phone Reuben Fernandes Primary Care Provider UnaJeff Kowalski Unavailable [phone] Allergies Allergen (clinical drug ingredient) Drug/Non Drug Allergy documented on EMR Reaction Allergy Type Onset Date Status Adhesive Unknown Allergy Active codeine Codeine Unknown Drug Allergy Active morphine Morphine Unknown Drug Allergy Active Penicillin Unknown Drug Allergy Active Substance with sulfonamide structure and antibacterial mechanism of action (substance) Sulfa Antibiotics Unknown Drug Allergy Active Medications Medication SIG (Take, Route, Frequency, Duration) Notes Start Date End Date Status Nexlizet 180-10 MG 1 tablet Orally Once a day Active Tresiba Active Trulicity 4.5 MG/0.5ML as directed Subcutaneous Not-Taking Ozempic Active Walking Boot/Pneumatic As directed Wear Daily for Until further notice Active glipiZIDE 10 MG 1 tablet 30 minutes before breakfast Orally Once a day Active Jardiance 25 MG 1 tablet Orally Once a day Active Lisinopril 20 MG 1 tablet Orally Once a day Active Metoprolol Succinate 50 MG 1 capsule Orally Once a day Active Social History Tobacco Use: Social History Observation Description Date Details (start date - stop date) Former Smoker NA - NA Tobacco Use/Smoking Question Answer Notes Are you a: former smoker Additional Findings: Tobacco Non-User Current no n-smoker Tobacco use other than smoking: Question Answer Notes Are you an other tobacco user? No Encounters Encounter Location Date Provider Diagnosis [facility] [address] [place] [address] 04/11/2024 Jeff Kim Pain in left foot [...] Appt Details Follow Up: prn, Reason: Provider Name:Tomasa cortez, 01/17/2025 04:00:00 PM, [address] [place], [address], Progress Notes * Odalis MERAZOB: [birth year] (58 yo F)Acc No.[id number]:04/11/2024 Progress Notes Patient:?Annie MERAZ Provider:?Jeff Kim DPM :1965???Age:58 Y???Sex:Female D ate:04/11/2024 Address:[address] [place], [place] [id number] Pcp:HOMER Damon Subjective: * Chief Complaints: * ??? * HPI: ???Foot Pain:?Nature:?sharp, aching, tenderness.?Location?Bottom, Midfoot, Left .?Onset/Cause:?unknown.?Aggrevated:?any pressure, standing, walking.?Treatments:?rest, , casting, arch binder.?Quality/Severity?1, scale 1-10.? * Medical History:? * Surgical History:?knee repla cement, right 07/01/23Gall bladder removal hernia * Hospitalization/Major Diagno stic Procedure:? * Family History:?Mother: dece ased, foot problems, heart attack, , high blood pressure, diagnosed with Diabetic - NIDDM.?Father: , kidney/liver disease, heart attack, high blood pressure, poor circulation, diagnosed with Diabetic - NIDDM, Family history of arthritis.?Siblings: high blood pressure.? * Social History:?Tobacco Use:?Tobacco Use/Smoking?Are you a:?former smoker ?Additional Findings: Tobacco Non-User?Current non-smoker ?Tobacco use other than smoking?Are you an other tobacco user??No * Medications:?TakingOzempic g lipiZIDE 10 MG Tablet 1 tablet 30 minutes before breakfast Orally Once a day Jardiance 25 MG Tablet 1 tablet Orally Once a day Lisinopril 20 MG Tablet 1 tablet Orally Once a day Metoprolol Succinate 50 MG Capsule ER 24 Hour Sprinkle 1 capsule Orally Once a day Nexlizet 180-10 MG Tablet 1 tablet Orally Once a day Tresiba Walking Boot/Pneumatic As directed Wear Daily Taking Ozempic Taking glipiZIDE 10 MG Tablet 1 tablet 30 minutes before breakfast Orally Once a day Taking Jardiance 25 MG Tablet 1 tablet Orally Once a day Taking Lisinopril 20 MG Tablet 1 tablet Orally Once a day Taking Metoprolol Succinate 50 MG Capsule ER 24 Hour Sprinkle 1 capsule Orally Once a day Taking Nexlizet 180-10 MG Tablet 1 tablet Orally Once a day Taking Tresiba Taking Walking Boot/Pneumatic As directed Wear Daily Not-Taking/PRNTrulicity 4.5 MG/0.5ML Solution Pen-injector as directed Subcutaneous Medication List reviewed and reconciled with the patientNot- Taking/PRN Trulicity 4.5 MG/0.5ML Solution Pen-injector as directed Subcutaneous Medication List reviewed and reconciled with the patient * Allergies:?PenicillinSulfa A ntibioticsMorphineAdhesiveCodeineyes[Allergies Verified] Objective: * Vitals:? * Examination: ???Ophthalmology Referral: ?DIABETES EYE EXAM?Diabetic [...] ?PALPATION:?No interspace pain noted on palpation.?Vascular: ?DP PULSES (B):?2/4, B/L.?PT PULSES (B):?2/4, B/L.?CAPILLARY FILL TIME:?3 secs. per digit, B/L.?TROPHIC CONDITION-TEXTURE/ELASTICITY/TURGOR/HAIR GROWTH (B):?normal, B/L.?TEMPERTURE GRADIENT (C):?warm to cool, proximal to distal, B/L.?PIGMENTATION:?normal, B/L.?EDEMA (C):?no edema.?TELANGECTASIA:?absent.?VARICOSITIES:?absent.?Dermatologic: ?SKIN FINDINGS:?Skin exam reveals normal texture, elasticity, and tugor. There are no masses. The interspaces are clear, B/L .?Orthopedic: ?MUSCLE STRENGTH:?5/5 all groups in a symmetrical fashion , B/L.?GAIT ABNORMALITY:?pronated, abducted, B/L.? Assessment: * Assessment: 1.?Pain in left foot - M79.6 72 (Primary)???2.?Plantar fascial fibromatosis - M72.2???3.?Sprain of left foot, initial encounter - S93.602A??? Plan: * Treatment: * Procedure Codes:? * [...]
--- OUTSIDE RECORDS SUMMARY | 2024-12-20 17:56 | XMS_ITS | Patient Health Record ---
Author Organization [facility] Address [address] [facility] [place] [address] Care Team Providers Care Jackscrew Worker Name Role Phone Reuben Fernandes Primary Care Provider Unahilaria gabbi KimJeff Unavailable [phone] Allergies Allergen (clinical drug ingredient) Drug/Non Drug Allergy documented on EMR Reaction Allergy Type Onset Date Status Adhesive Unknown Allergy Active codeine Codeine Unknown Drug Allergy Active morphine Morphine Unknown Drug Allergy Active Penicillin Unknown Drug Allergy Active Substance with sulfonamide structure and antibacterial mechanism of action (substance) Sulfa Antibiotics Unknown Drug Allergy Active Reason For Referral No Information Medications Medication [...] 1 capsule Orally Once a day Active Immunizations Vaccine Route Administration Date Status [...] Polyneuropathy due to type 2 diabetes mellitus ([id number]) Type 2 diabetes mellitus with diabetic polyneuropathy (E11.42) Active confirmed Vital Signs Blood pressure diastolic 92 mm Hg 03/14/2024 Height 5ft5in in 03/14/2024 Blood pressure systolic 143 mm Hg 03/14/2024 Weight 243 lbs 03/14/2024 BMI 40.43 kg/m2 03/14/2024 Encounters Encounter Location Date Provider Diagnosis [address] [address] 03/14/2024 Jeff Kim Pain in left foot M79.672 ; Plantar fascial fibromatosis M72.2 and Sprain of left foot, initial encounter S93.602A [address] [address] 04/11/2024 Jeff Kim Pain in left foot M79.672 ; Plantar fascial fibromatosis M72.2 and Sprain of left foot, initial encounter S93.602A [address] [address] 03/12/2024 Jeff Kim Assessments Encounter Date Diagnosis [...] encounter (ICD-10 - S93.602A) Plan Of Treatment Pending Test Test Name Order Date [id number] SKIN LESIONS, OVER 4 11/29/19 24 Next Appt Details Provider Name:Tomasa cortez, 01/17/2025 04:00:00 PM, [address] [place], [address], Insurance Providers Payer Name Payer Address Payer Phone Subscriber Number Group Number Insured Name Patient Relationship to Insured Coverage Start Date Coverage End Date [facility] [address] [place] [address] [phone] [id number] Horacio Manriquez Spouse - patient is the spouse of the insured Medical (General) History Medical History History ICD Code covid-19 Back,Hip,and Knee pain Broken bones Measles Mumps Chicken pox Joint implants/screws High blood pressure Hiatal hernia Reflux ( GERD) Sciatica sinusitis Surgical History Surgery Date(Month/Year) knee replacement, right 07/01/23 Gall bladder removal hernia
== END 2024-12-20 17:01 | disposition home or self-care (01) ==
LOC: HO.HMCC 15:43
PROVIDERS: PCP Nurse Practitioner Family; Visit Provider Nurse Practitioner Family
DX: Z00.00 Encounter for general adult medical examination without abnormal findings (principal); E55.9 Vitamin D deficiency, unspecified; E11.9 Type 2 diabetes mellitus without complications

== ENCOUNTER → 2024-12-20 15:43 | Outpatient (BNVA) | payer OTHER, SELFPAY | PROVIDERS: PCP Nurse Practitioner Family; Visit Provider Nurse Practitioner Family | DX: Z00.00 Encounter for general adult medical examination without abnormal findings (principal); E55.9 Vitamin D deficiency, unspecified; E11.9 Type 2 diabetes mellitus without complications | CPT/HCPCS: 96127 ==

== ENCOUNTER 2024-12-22 07:01 | Outpatient (REF) | payer OTHER, SELFPAY ==
[2024-12-22 09:04] LABS: B Type Natriuretic Peptide < 10 pg/mL (<100)
[2024-12-22 12:01] LABS: MANUAL DIFF FLAG NO
[2024-12-22 12:07] LABS: Basophils Absolute Auto 0.1 X10*3/uL (0.0-0.2); Basophils Percent Auto 0.7 % (0-2); Eosinophils Absolute Auto 0.2 X10*3/uL (0.0-0.4); Eosinophils Percent Auto 2.2 % (0-4); Hematocrit 44.5 % (37.0-47.0); Hemoglobin 14.4 g/dl (12.0-16.0); Imm Gran Abs Auto 0.03 X10*3/uL (0.00-0.03); Imm Gran Pct Auto 0.4 % (0.0-0.4); Lymphocytes Absolute Auto 2.1 X10*3/uL (1.2-4.9); Lymphocytes Percent Auto 30.1 % (20-40); Mean Corpuscular HGB Conc 32.4 g/dl (31.0-35.0); Mean Corpuscular Hemoglobin 28.8 pg (27.0-33.0); Mean Platelet Volume 10.4 fL (9.4-12.3); Monocytes Absolute Auto 0.5 X10*3/uL (0.1-1.2); Monocytes Percent Auto 7.2 % (2-11); Neutrophils Percent Auto 59.4 % (45-73); Platelet Count 226 X10*3/uL (160-400); Red Cell Distribution Width 13.2 % (11.0-16.0); White Blood Count 6.8 X10*3/uL (4.8-10.8)
[2024-12-22 12:18] LABS: D Dimer High Sensitivity < 150 NG/ML
[2024-12-22 12:35] LABS: Alanine Aminotransferase 27 U/L (0-31); Albumin Level 4.1 g/dL (3.5-5.0); Alkaline Phosphatase 82 U/L (39-117); Anion Gap 12 (12-20); Aspartate Amino Transferase 22 U/L (5-31); Bilirubin Total 0.4 mg/dL (0.0-1.0); Blood Urea Nitrogen 20 mg/dL (9-16); Calcium 9.6 mg/dL (8.4-10.2); Carbon Dioxide 24 mmol/L (22-29); Chloride 107 mmol/L (96-108); Cholesterol 177 mg/dL (<200); Estimated Glomerular Filt Rate > 60; Glucose Fasting 177 mg/dL (60-99); HDL Cholesterol 33 mg/dL (>40); LDL Cholesterol Calculated 92 mg/dL (<100); Potassium 4.1 mmol/L (3.3-5.1); Sodium 139 mmol/L (135-145); Triglycerides 264 mg/dL (<150)
[2024-12-22 12:39] LABS: Appearance Urine Clear; Color Urine Yellow; Glucose Urine UA >=1000 mg/dL (Negative); Leukocyte Esterase Urine Negative (Negative); Nitrite Urine Negative (Negative); PH 5.5 (5.0-9.0); Specific Gravity - Urine >= 1.030 (1.005-1.025); UMIC TRIGGER UACC YES; Urine Blood Negative (Negative); Urine Ketones Negative (Negative); Urine Protein Negative (Neg-Trace)
[2024-12-22 12:48] LABS: Bacteria Urine Trace (None Seen); RBC Urine 0-2 /HPF (0-2); Squamous Epithelial Cell Urine 0-2 /HPF (0-2); WBC Urine 0-5 /HPF (0-5)
[2024-12-22 12:55] LABS: TSH reflex Free T4 1.65 uIU/mL (0.32-4.0); Vitamin D 25-OH Total 57.1 ng/mL (>30)
== END 2024-12-22 07:02 | disposition home or self-care (01) ==
LOC: HO.HMGCLDS 07:01
PROVIDERS: PCP Nurse Practitioner Family; Visit Provider Nurse Practitioner Family
DX: Z00.00 Encounter for general adult medical examination without abnormal findings (principal); Z13.6 Encounter for screening for cardiovascular disorders; E55.9 Vitamin D deficiency, unspecified; R06.02 Shortness of breath
CPT/HCPCS: 36415; 80053; 80061; 81001; 82306; 83880; 84443; 85025; 85379

== ENCOUNTER 2025-08-26 15:31 | Outpatient (AMB) | payer OTHER, SELFPAY ==
[2025-08-26 15:43] VITALS: BP 108/60; PULSE 72; TEMP 37.1; O2SAT 96; BMI 42.3
--- NOTE | 2025-08-26 15:43 | MHC.PC.OV ---
Vital Signs 08/26/25 15:43 Height 5 ft 5 in Weight 254 lb BMI 42.3 BP 108/60 Blood Pressure Location Lt brachial Position Sitting Pulse 72 Pulse Source Pulse Oximeter Temp 98.8 F Temp Source Oral Pulse Oximetry (%) 96 Oxygen Delivery Method Room Air Intake Visit Reasons: DM f/u Glass Driller Required: No Accompanied by: Self / Same As Patient Allergies Penicillins (PENICILLINS) Allergy (Intermediate, Verified 08/26/25 15:59) RASH penicillamine Allergy (Unknown, Verified 08/26/25 15:59) Unknown penicillin V Allergy (Unknown, Verified 08/26/25 15:59) hives, rash, diarrhea codeine (CODEINE) Adverse Reaction (Severe, Verified 08/26/25 15:59) STOMACH PAIN Sulfa (Sulfonamide Antibiotics) (SULFA(SULFONAMIDE ANTIBIOTICS)) Adverse Reaction (Intermediate, Verified 08/26/25 15:59) VOMITING Medication List - Last Reconciled 08/26/25 by ADRIANA Torrez blood-glucose sensor (Dexcom G7 Sensor device) As directed empagliflozin (Jardiance) 25 mg PO DAILY 90 days glipizide ER 5 mg PO DAILY insulin degludec (Tresiba FlexTouch U-200 insulin) 140 units subcut BEDTIME insulin lispro (Admelog U-100 Insulin lispro) 1 sliding scale dose subcut USEASDIRECTD lisinopril 20 mg PO DAILY metoprolol succinate ER 50 mg PO DAILY Tobacco use date assessed: 12/20/24 Dental Screening Dental Screen Date: 12/20/24 HPI DM f/u HPI Details Chief Complaint The patient presents for a follow-up visit for diabetes. History of Present Illness The patient is a 59 year old individual presenting for a follow-up visit for diabetes, for which the patient also sees an instructional technology coach. The patient's last hemoglobin A1c was 9.3%. The patient's current medication regimen includes 140 units of long-acting insulin daily, a high-dose sliding scale of short-acting insulin at least three times a day, the highest dose of Jardiance (an SGLT-2 inhibitor), and lisinopril. The patient is not currently on a statin. The patient reports intermittent nausea with the medications and has known high sensitivities to multiple different medications, including an intolerance to GLP-1 agonists. The patient is morbidly obese. The patient's eye exam is up-to-date and denies any current neuropathies, numbness, or tingling in the feet. Social History Health Maintenance - The patient's eye exam is up to date. - A microalbumin order was added for diabetic nephropathy screening. - Fasting labs will be obtained in the near future. Review of Systems - Gastrointestinal: Reports intermittent nausea. - Neurological: Denies numbness, tingling, or current neuropathies. -denies any cp, sob, Physical Exam General: Cooperative, healthy appearing, comfortable, no acute distress and well developed, morbidly obese Orientation: Patient oriented x3 Limitations: No limitations Head: Normal to inspection Ears: Hearing grossly normal bilaterally Nose: Normal external nose present Face and sinus: Normal facial exam Eyes: Appearance normal, both eyes and all related structures, eye exam is up to date Neck: Normal visual inspection and Yes full ROM Respiratory: Normal respiratory effort and able to speak in complete sentences. Clear to auscultation bilaterally Cardiovascular: Regular rate and rhythm. Normal S1 and S2 GI: Normal to inspection. Soft to palpation and nontender Skin: No rashes or lesions noted Neuro: Patient oriented x3, denies any current neuropathies Extremities: Normal to inspection, positive sensation using monofilament Results - Labs: Recent Hemoglobin A1c was 9.3%. Plan 1. Diabetes Mellitus The patient has poorly controlled diabetes with a recent A1c of 9.3% despite being on high doses of long- and short-acting insulin, as well as a maximum dose of an SGLT-2 inhibitor. The patient reports nausea, has multiple medication sensitivities, and does not tolerate GLP-1 agonists. To improve glycemic control, glipizide 5 mg ER will be started with the goal of lowering insulin requirements. A microalbumin order was added for nephropathy screening, and fasting labs will be checked in the near future. 2. Morbid Obesity The patient is morbidly obese, which is a contributing factor to insulin resistance. Management will continue with current therapies. 3. Lipid Screening Although the patient is not currently on a statin, fasting labs, including a lipid panel, will be ordered to assess cardiovascular risk and determine if statin therapy is indicated. Discussion Notes I discussed with the patient that the diabetes is poorly controlled, as evidenced by a recent A1c of 9.3%. We reviewed the current regimen, including high-dose insulin, and noted the patient's medication sensitivities and intolerance to GLP-1 agonists. I recommended starting glipizide 5 mg ER to help improve blood sugar control and potentially reduce the need for such high insulin doses. We also arranged for fasting labs and a microalbumin test for further monitoring and confirmed the patient's eye exam is up to date. Patient Instructions - Begin taking one tablet of glipizide 5 mg extended-release by mouth every day. - Continue taking your insulin, Jardiance, and lisinopril as prescribed. - Please go to the lab for fasting blood work in the near future. - A lab order for a urine test (microalbumin) has been placed for you. - Note that you may experience some nausea with your medications. 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 [employer] Current occupational exposures/hazards: No Cognitive needs: No Hearing needs: No Vision needs: No Questionnaire Thrive Questionnaire Date Thrive assessed: 12/14/24 I am a: Patient What is your living situation today?: I have a steady place to live Within the past 12 months, did the food you bought not last and you didn't have the money to get more?: Never true Within the past 12 months, did you worry whether your food would run out before you got money to buy more?: Never true Do you have trouble paying for medicines?: No Do you have trouble getting transportation to medical appointments?: No Do you have trouble paying your heating and electricity bill?: No Do you have trouble taking care of your child, family member or friend?: No Do you have trouble with day-to-day activities such as bathing, preparing meals, shopping, managing finances, etc.?: No Are you currently unemployed and looking for a job?: No Are you interested in more education?: No Please select the resources that you would like help with: None Currently or been in a relationship where the following occur: No concerns reported THRIVE Score: 0 LYN-7 AMB Questionnaire LYN-7 Date LYN - 7 assessed: 12/20/24 Source: Developed by Drs. Rangel Hoover, Jasmina Eller, Jeovanny Rosa and colleagues, with an educational evan from [employer]. Physical exam (Primary Care) Vital Signs: Last Vital Signs Temp 98.8 F 08/26/25 15:43 Pulse 72 08/26/25 15:43 BP 108/60 08/26/25 15:43 Pulse Ox 96 08/26/25 15:43 Oxygen Delivery Method Room Air 08/26/25 15:43 BMI result Body Mass Index 42.3 Tobacco/Smoking Status: Tobacco use Status Tobacco use date assessed 12/20/24 08/26/25 15:44 Patient Tobacco Use Status Former Tobacco user 08/26/25 15:44 e-Cigarette/Vaping Use Never Used 08/26/25 15:44 Thrive Assessment: Date of Thrive Assessment Date Thrive assessed 12/14/24 08/26/25 15:44 Currently or been in a relationship where the following occur: No concerns reported Coding Level of Care Code Est Pt Level 3 (09654) Diagnoses Diabetes E11.9 Assessment & Plan Assessment & Plan (1) Diabetes: Code(s): E11.9 - Type 2 diabetes mellitus without complications Category: Medical (2) Diabetes: Code(s): E11.9 - Type 2 diabetes mellitus without complications Category: Medical Plan . Orders: Orders UA CC w/rflx Micro + Cult Today E11.9 - Type 2 diabetes mellitus without complications Microalbumin, Random (w Creat) Today E11.9 - Type 2 diabetes mellitus without complications Cortisol Random Today E11.9 - Type 2 diabetes mellitus without complications Complete Blood Count Auto Diff Today E11.9 - Type 2 diabetes mellitus without complications Comprehensive [place]. Panel Fast Today E11.9 - Type 2 diabetes mellitus without complications TSH reflex Free T4 Today E11.9 - Type 2 diabetes mellitus without complications Lipid Panel Today E11.9 - Type 2 diabetes mellitus without complications Medications: New glipizide ER 5 mg PO DAILY 30 tabs 1RF
--- OUTSIDE RECORDS SUMMARY | 2025-08-26 20:05 | XMS_ITS | Data Portability ---
Author Organization [place] - [facility], Allergy Address [address] [address] Care Team Providers Care Manufacturing Quality Technician Name Role Phone ARLEENMAY KALLIE Primary Care Provider Assessment Encounter Date Assessment [...] discussed tinnitus dplosky Not available 07/12/2024 11:16:49 10/12/2024 10/12/2024 58-year-old [...] doxycycline hyclate 100 mg tablet 2024 025 [facility]/Pharmacy #[id number], [address] [facility] , [place], [address], 12:11:47 Patient TargetsNo targets recorded. Patient InstructionsNo [...] Address Organization Details Recorded Time Bilateral tinnitus 07617759523 02 Active 2020 Tinnitus, bilateral ; Note: Date Diagnosed : 9:41 AM (H93.13) Not Available [facility] 4 02:32:07 Sensorine ural hearing loss of bilateral ears 883883134 Active 2020 Sensorine ural hearing loss, bilateral ; Note: Date Diagnosed : 9:41 AM (H90.3) Not Available [facility] 4 02:31:58 Mass of neck 011423050 Active 2020 Localized swelling, mass and lump, neck; Note: Date Diagnosed : 1 9:41 AM (R22.1) Not Available [facility] 4 02:31:56 Neck swelling 921610049 Active 2020 Localized swelling, mass and lump, neck; Note: Date Diagnosed : 9:41 AM (R22.1) Not Available [facility] 4 02:31:56 Hypertrop hy of nasal turbinate s 80632060 Active 2023 ÁNGEL JAVIER MD [address] [place] [address], [place], [address] , [facility] - [facility] 4 11:15:41 Acute maxillary sinusitis 30642459 Active 2024 ANDERSON DOSHI PA-C 100 [facility],[place] [address], [facility] [place], [address] , [place] - [facility] 5 12:11:26 Problem Notes None recorded. Procedures Surgical History Date Name Laterality Status Provider Name and Address Organization Details Recorded Time 10/12/2024 Comp Audio with Tymps - 16732 & 28529 completed CHANTAL CAREY MA, CCC-A 100 [facility] 100, [place], [address], [facility] - [facility] 10/12/2024 11:46:04 Imaging Results None recorded. Procedure Notes None recorded. Medical Equipment None Reported. Allergies Allergen ID Allergen Name Allergen Category Reaction Reaction Severity Criticality Documentation Date Start Date Code Code System Note Provider Name and Address Organization Details Recorded Time 55845 codeine medicatio n other Not available Not available 02/14/2024 2670 RxNorm React ion: Unkno wn; Not Available [facility] 4 00:56:34 55236 Penicilli n Not available other Not available Not available 02/14/2024 22177 RxNorm React ion: Unkno wn; Not Available [facility] 4 00:56:35 98806 Substance with sulfonami de structure and antibacte rial mechanism of action (substanc e) medicatio n nausea Not available Not available 02/14/2024 12032 8003 SNOMED React ion: vomit ing;; Not Available [facility] 4 00:56:36 Medications Name Sig Start [...] 24 hr 07/12 completed Medicati on ID: [id number] B rand Name: glipizid e Send Method: [...] Available Not Available Not Available Dexcom G7 Percussion Teacher USE DIRECTED FOR DIABETES CONTROL active Not [...] Updated DateTime 10/12/2024 165.1 cm 40.1 kg/m2 279235.76 g Craig Jacobo [facility] 10/12/2024 11:11:52 Date Recorded Body height Body mass index (BMI) Body weight Provider Name and Address Organization Details Last Updated DateTime 07/12/2024 165.1 cm 40.1 kg/m2 559254.76 g Radhika Dubois [facility] 07/12/2024 10:55:11 Social History None recorded. Functional Status None recorded. Mental Status None recorded. Family History Nothing Reported. Medical History Condition Response Hearing Loss Y Gynecological HistoryNo gynecological history recorded. Obstetrics History GPAL:G 0 P 0 0 0 0 Past Encounters Encounter ID Performer Location Encounter Start Date Encounter Closed Date Diagnosis/Indication Diagnosis SNOMED-CT Code Diagnosis ICD10 Code Diagnosis IMO Codes Diagnosis Note [id number] ÁNGEL JAVIER MD [facility] [address] [address] 07/12/2024 09:56:07 07/12/2024 11:17:19 Hypertrophy of nasal turbinates 73162315 J34.3 Bilateral tinnitus 31794 91913 102 H93.13 [id number] ANDERSON DOSHI PA-C [facility] [address] [address] 10/12/2024 10:51:01 10/12/2024 12:10:02 Bilateral tinnitus 0261495083 102 H93.13 Sensorineu ral hearing loss of bilateral ears 997902811 H90.3 Audiologic al evaluation results:Ri ght ear:Normal / borderline normal hearing thru 2000Hz sloping to a mild SNHL with excellent word recognitio n.Left ear:Normal hearing with excellent word recognitio n. Tympanomet ry:Right Ear:Type AdLeft Ear:Type Ad Acute maxi llary sinusitis 13495837 J01.00 Health Concerns Section Related Observation LastModified by Organization Detai ls LastModified Time None Recorded Concern Status LastModified by Organization Details LastModified Time None Recorded Advance Directives Directive None Recorded Payers Insurance Date Sequence Insurance Name Policy Number Policy [place] Covered Member ID Tipton Member ID Guarantor Name 11/07/2024 1 [facility] INDEMNITY PLAN (PPO) [id number] 1 Horacio Meraz [id number] Annie Meraz 07/12/2024 1 [facility]VANT[facility] - HMO) Annie Meraz [id number] Annie Meraz 07/12/2024 1 [facility] IN[facility] (INDEMNITY) [id number] 1 Horacio Meraz [id number] Annie Meraz Notes Date Note Type Note Provider Name and Address Organization Details Recorded Time 07/12/2024 text/html ROS as noted in the HPI right nasal polyp06/03/24 Urgent care visit for bilateral sinusitis given doxy with improvementno sig hx of recurrent sinus infectionsgood sense of smellno epistaxisno imaging studies PV 07/14/21 Theron - left facial swelling likely mild parotitis, chronic tinnitus ÁNGEL JAVIER MD 100 [facility],[place] [address], [place], [address], [facility] - [facility] 07/12/2024 11:17:16 10/12/2024 text/html ROS as noted in the HPI 58-year-old female presents for evaluation of 2 issues. First [...] nasal drainage since Josh. ADIA CONTRERAS MD 100 [facility] 100, [place], [address], [facility] - [facility] 10/12/2024 13:02:27 OBGyn Episode No OBEpisode recorded.
--- OUTSIDE RECORDS SUMMARY | 2025-08-26 20:05 | XMS_ITS | Clinical Summary ---
Author Organization [facility] Address Formerly [facility] [employer] [address] [address] Phone Care Team Providers Care Java Web Developer Name Role Phone Reuben Paez NP Primary Care Provider + Allergies Active Allergy Reactions Criticality Noted Date Comments Codeine GI Upset 10/14/2021 Lactose 10/14/2021 Penicillins Diarrhea,Hives 10/14/2021 Sulfa (Sulfonamide Antibiotics) Diarrhea,Nausea and/or Vomiting 10/14/2021 Medications NEXLIZET 180-10 mg per tablet 1 tablet Orally Once a day 05/19/20 23 Active clindamycin (CLEOCIN) 300 MG capsule TAKE 2 CAPSULES BY MOUTH 1/2 HOUR PRIOR TO DENTAL APPOINTMENT 10/10/19 24 Active TRULICITY 4.5 mg/0.5 mL subcutaneous injection as directed Subcutaneous 10/19/19 23 Active JARDIANCE 25 mg tablet 1 tablet Orally Once a day 06/11/20 22 Active glipiZIDE (GLUCOTROL) 10 MG tablet 1 tablet 30 minutes before breakfast Orally Once a day 04/06/20 22 Active TRESIBA FLEXTOUCH U-100 injection pen INJECT 84 UNITS SUBCUTANEOUSLY DAILY Active lisinopril (PRINIVIL,ZESTRI L) 20 MG tablet 1 tablet Orally Once a day 08/26/20 23 Active metoprolol succinate (TOPROL-XL) 50 MG 24 hr tablet Take 50 mg by mouth daily. Active doxycycline hyclate (VIBRAMYCIN) 100 MG capsule PLEASE SEE ATTACHED FOR DETAILED DIRECTIONS 11/06/19 Active NOVOLOG FLEXPEN U-100 INSULIN 100 unit/mL (3 mL) flexpen See Instructions, Max daily dose 150 units. take 3 times dialy with meal following sliding scale., # 135 mL, 3 Refills, Maintenance, 10/05/24 4:38:00 PM EST, [id number], Partial fill upon patient request if the prescription is for a schedule II opioid drug., 165.1, cm, 10/04/24 16:01:00 EST, Height, 111.9, kg, 10/04/24 16:01:00 EST, Dry Weight 10/05/19 Active TRULICITY 0.75 mg/0.5 mL subcutaneous injection Inject 0.75 mg under the skin. 12/08/19 Active DEXCOM G7 SENSOR Donna USE DIRECTED FOR DIABETES CONTROL 10/12/19 Active Active Problems No known active problems Social History Tobacco Use Types Packs/Day Years Used Date Smoking Tobacco: Never Assessed Tobacco Cessation:Counseling Given: Not Answered Education Answer Date Recorded Are you interested in more education? Not on flaca e 01/28/2023 Are you concerned about learning? Not on file 01/28/2023 No 01/28/2023 No 01/28/2023 Digital Access Answer Date Recorded No 02/26/2023 No 02/26/2023 Reliable internet access at home? Not on file 02/26/2023 Device with a working camera? Not on file Comments Unknown Sex and Gender Information Value Date Recorded Sex Assigned at Female 08/31/2021 3:04 PM EST Legal Sex Female 10:34 PM EDT Gender Identity Female 08/31/2021 3:04 PM EST Sexual Orientation Straight 08/31/2021 3: 04 PM EST Last Filed Vital Signs Vital Sign Reading Time Taken Comments Blood Pressure 110/60 07/25/2013 1:54 AM EDT Pulse 68 07/25/2013 1:54 AM EDT Temperature - - Respiratory Rate - - Oxygen Saturation - - Inhaled Oxygen Concentration - - Weight 119.3 kg (263 lb) 07/25/2013 1:54 AM EDT Height 165.1 cm (5' 5 ) 07/25/2013 1:54 AM EDT Body Mass Index 43.77 07/25/2013 1:54 AM EDT Plan of Treatment Upcoming Encounters Date Type Department Care Team (Late st Contact Info) Description 12/23/2025 12:30 PM EDT Office Visit [facility] [address] [place] [address] Reuben New MD [address] [place] [address] [email or web address] Health Maintenance Due Date Last Done Comments Adult Td,Tdap Booster 1963 CREATININE LEVEL 1963 LIPID PANEL 1963 POTASSIUM LEVEL 1963 DEPRESSION SCREENING 1975 SMOKING Hx and SMOKELESS TOBACCO SCREENING 12/07/1976 HEPATITIS C SCREENING 12/07/1981 HIV ONE-TIME SCREENING (18-65 YEARS) 12/07/1981 PAP SMEAR 12/07/1984 MAMMOGRAM 2003 COLOGUARD 12/07/2008 COLONOSCOPY 12/07/2008 COLORECTAL CANCER SCREENING 12/07/2008 FIT TEST 12/07/2008 FOBT 12/07/2008 SIGMOIDOSCOPY 12/07/2008 VIRTUAL COLONOSCOPY 12/07/2008 RSV VACCINE (1 - Risk 50-74 years 1-dose series) 12/07/2013 ZOSTER VACCINES (1 of 2) 12/07/2013 PNEUMOCOCCAL VACCINES (50+ years) (2 of 2 - PCV) 05/25/2019 05/25/2018 INFLUENZA VACCINE (#1) 2025 06/19/2019, 2018 COVID-19 VACCINE ( season) 2025 08/07/2021, 12/30/2020, 12/02/2020, Additional history exists HEPATITIS A VACCINES Aged Out No long er eligible based on patient's age to complete this topic HIB VACCINES Aged Out No longer eligi ble based on patient's age to complete this topic MENINGOCOCCAL VACCINES (ACWY) Aged Out No longer eligible based on patient's age to complete this topic MENINGOCOCCAL VACCINES (B) Aged Out N o longer eligible based on patient's age to complete this topic Medical Devices Not on file Insurance [facility] CHOICE [facility] CHOICE CHOICE [facility] CHOICE CHOICE [facility] [place] [address] [place] [address] [facility] [address] [place]ICE [place] [address] [facility] [place] [address] [place] [address] [place] [place] [address] [place] [address] [facility] CHOICE [facility] [place] [address] [facility] [place] [address] [facility] CHOICE [place] [address] Care Teams Java Web Developer Relationship Specialty Start Date End Date Reuben Paez NP [address] [facility] [address] PCP - General Family Medicine 08/31/21 Additional Source Comments The information contained in this document represents components of the legal health record. It is not the complete legal health record.[facility]
== END 2025-08-26 16:41 | disposition home or self-care (01) ==
LOC: HO.HMCC 15:31
PROVIDERS: PCP Nurse Practitioner Family; Visit Provider Nurse Practitioner Family
DX: E11.9 Type 2 diabetes mellitus without complications (principal)

== ENCOUNTER 2025-08-30 10:49 | Outpatient (REF) | payer OTHER, SELFPAY ==
--- OUTSIDE RECORDS SUMMARY | 2024-11-27 03:15 | XMS_ITS ---
Author Organization [facility] Address [address] [place] [id number] Care Team Providers Care Access Analyst Name Role Phone Reuben Fernandes Primary Care Provider Unav ailable Tomasa Calderón Unavailable [phone] Jeff Snider Unavailable [phone] Ayoub Encounters Encounter [facility] Date [facility] [address] 11/27/[facility]24 Jeff Snider Plan Of Treatment Next Appt Details Provider Name:Tomasa Moreira diego, 01/16/2026 03:45:00 PM, [address] [place], [address], Progress Notes * Odalis MERAZOB: 9[birth year] (59 yo F)Acc No.[id number]:11/27/2024 Progress Note Patient: Annie MORTON Provider: Griselda Kim DPM :1965 A ge:58 Y S ex:Female Date:11/27/2024 Address:[address] [place] [address] [facility] Pcp:HOMER Damon Subjective: * Chief Complaints: * [address] Ayoub. * Medical History: Objective: * Vitals: Assessment: Plan: * Treatment: * Images: * The named appointment provid er may or may not be the originator of this progress note, and it is not deemed complete until electronically signed by the appointment provider. Sign off status: Pending * Provider: Griselda Kim DPM Date: 0 11/27/2024 Generated for Reno Pisano/Jenae on: 1 10/30/2024 10:52 AM EST
--- OUTSIDE RECORDS SUMMARY | 2025-03-15 09:00 | XMS_ITS ---
Author Organization [facility] Address [address] [place] [address] Care Team Providers Care Insights Analyst Name Role Phone Reuben Fernandes Primary Care Provider Unav ailable Tomasa Calderón Unavailable [phone] Encounters Encounter Location Date Provider Diagnosis [address] [address] 03/15/2025 Tomasa Calderón Plan Of Treatment Next Appt Details Provider Name:Tomasa cortez, 01/16/2026 03:45:00 PM, [address] [place], [address], Progress Notes * Odalis MERAZOB: [birth year] (59 yo F)Acc No.[id number]:03/15/2025 Progress Notes Patient: Annie MORTON Provider: Virginia Calderón DPM :1965 A ge:59 Y S ex:Female Date:03/15/2025 Address:[address] [place], [place] [address] Pcp:HOMER Damon Subjective: * Chief Complaints: * * Medical History: Objective: * Vitals: Assessment: Plan: * Treatment: * Images: * The named appointment provid er may or may not be the originator of this progress note, and it is not deemed complete until electronically signed by the appointment provider. Sign off status: Pending * Provider: Virginia Calderón, DAVID Date: 0 03/15/2025 Generated for [place] amezcua/Radha/Jenae on: 10/30/2024 10:52 AM EST
--- OUTSIDE RECORDS SUMMARY | 2025-04-01 09:00 | XMS_ITS ---
Author Organization [facility] Address [address] [place] [address] Care Team Providers Care Lace Sewer Name Role Phone Reuben Fernandes Primary Care Provider Unav ailable Tomasa Calderón Unavailable [phone] Encounters Encounter Location Date Provider Diagnosis [address] [address] 04/01/2025 Tomasa Calderón Plan Of Treatment Next Appt Details Provider Name:Tomasa cortez, 01/16/2026 03:45:00 PM, [address] [place] [address], [address], Progress Notes * Odalis MERAZOB: [birth year] (59 yo F)Acc No.[id number]:04/01/2025 Progress Notes Patient: Annie MORTON Provider: Virginia Calderón DPM :1965 A ge:59 Y S ex:Female Date:04/01/2025 Address:[address] [place], [place] [address] [id number] Pcp:HOMER Damon Subjective: * Chief Complaints: * * Medical History: Objective: * Vitals: Assessment: Plan: * Treatment: * Images: * The named appointment provid er may or may not be the originator of this progress note, and it is not deemed complete until electronically signed by the appointment provider. Sign off status: Pending * Provider: Virginia Calderón, DAVID Date: 0 04/01/2025 Generated for [place] amezcua/Radha/Jenae on: 10/30/2024 10:52 AM EST
--- OUTSIDE RECORDS SUMMARY | 2025-08-30 10:52 | XMS_ITS | Data Portability ---
Author Organization [place] - [facility], Allergy Address [address] [address] Care Team Providers Care Floor Assembler Name Role Phone ARLEENKALLIE OLVERA Primary Care Provider [phone] Assessment Encounter Date Assessment Date Assessment LastModified [...] doxycycline hyclate 100 mg tablet 2024 025 [facility]/Pharmacy #[id number], [address] [facility] , [place], [address], 12:11:47 Patient TargetsNo targets recorded. Patient InstructionsNo [...] Address Organization Details Recorded Time Bilateral tinnitus 48818605981 02 Active 2020 Tinnitus, bilateral ; Note: Date Diagnosed : 9:41 AM (H93.13) Not Available [facility] 4 02:32:07 Sensorine ural hearing loss of bilateral ears 643921099 Active 2020 Sensorine ural hearing loss, bilateral ; Note: Date Diagnosed : 9:41 AM (H90.3) Not Available [facility] 4 02:31:58 Mass of neck 353745015 Active 2020 Localized swelling, mass and lump, neck; Note: Date Diagnosed : 1 9:41 AM (R22.1) Not Available [facility] 4 02:31:56 Neck swelling 057267716 Active 2020 Localized swelling, mass and lump, neck; Note: Date Diagnosed : 9:41 AM (R22.1) Not Available [facility] 4 02:31:56 Hypertrop hy of nasal turbinate s 94923398 Active 2023 ÁNGEL JAVIER MD [address] [place] [address], [place], [address] , [facility] - [facility] 4 11:15:41 Acute maxillary sinusitis 63330902 Active 2024 ANDERSON DOSHI PA-C 100 [facility],[place] [address], [facility] Hospital[facility] [place], [address] , [place] - [facility] 5 12:11:26 Problem Notes None recorded. Procedures Surgical History Date Name Laterality Status Provider Name and Address Organization Details Recorded Time 10/12/2024 Comp Audio with Tymps - 24756 & 68470 completed CHANTAL CAREY MA, CCC-A 100 [facility] 100, [place], [address], [facility] - [facility] 10/12/2024 11:46:04 Imaging Results None recorded. Procedure Notes None recorded. Medical Equipment None Reported. Allergies Allergen ID Allergen Name Allergen Category Reaction Reaction Severity Criticality Documentation Date Start Date Code Code System Note Provider Name and Address Organization Details Recorded Time 05052 codeine medicatio n other Not available Not available 02/14/2024 2670 RxNorm React ion: Unkno wn; Not Available [facility] 4 00:56:34 50169 Penicilli n Not available other Not available Not available 02/14/2024 74415 RxNorm React ion: Unkno wn; Not Available [facility] 4 00:56:35 71023 Substance with sulfonami de structure and antibacte rial mechanism of action (substanc e) medicatio n nausea Not available Not available 02/14/2024 90718 8003 SNOMED React ion: vomit ing;; Not Available [facility] 4 00:56:36 Medications Name Sig Start [...] 24 hr 07/12 completed Medicati on ID: [id number] B rand Name: glipizid e Send Method: [...] Available Not Available Not Available 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 10/12/2024 11:11:52 Date Recorded Body height Body mass index (BMI) Body weight Provider Name and Address Organization Details Last Updated DateTime 07/12/2024 165.1 cm 40.1 kg/m2 735871.76 g Radhika Dubois [facility] 07/12/2024 10:55:11 Social History None recorded. [...] ICD10 Code Diagnosis IMO Codes Diagnosis Note [id number] ÁNGEL JAVIER MD [facility] [address] [address] 07/12/2024 09:56:07 07/12/2024 11:17:19 Hypertrophy of nasal turbinates 48422645 J34.3 Bilateral tinnitus 36125 02823 102 H93.13 [id number] ANDERSON DOSHI PA-C [facility] [address] [address] 10/12/2024 10:51:01 10/12/2024 12:10:02 Bilateral tinnitus 4734083265 102 H93.13 Sensorineu ral hearing loss of bilateral ears 974856022 H90.3 Audiologic al evaluation results:Ri ght ear:Normal / borderline normal hearing thru 2000Hz sloping to a mild SNHL with excellent word recognitio n.Left ear:Normal hearing with excellent word recognitio n. Tympanomet ry:Right Ear:Type AdLeft Ear:Type Ad Acute maxi llary sinusitis 23152473 J01.00 Health Concerns Section Related Observation LastModified by Organization Detai ls LastModified Time None Recorded Concern Status LastModified by Organization Details LastModified Time None Recorded Advance Directives Directive None Recorded Payers Insurance Date Sequence Insurance Name Policy Number Policy Tipton Covered Member ID Tipton Member ID Guarantor Name 11/07/2024 1 [facility] INDEMNITY PLAN (PPO) [id number] 1 Horacio Meraz [id number] Annie Meraz 07/12/2024 1 [facility] (MEDICARE REPLACEMENT/ ADVANTAGE - HMO) Annie Meraz [id number] Annie Meraz 07/12/2024 1 [email or web address] IN[facility] (INDEMNITY) [id number] 1 Horacio Meraz [id number] Annie Meraz Notes Date Note Type Note [...] parotitis, chronic tinnitus ÁNGEL JAVIER MD 100 [facility],[place] [address], [place], [address], [facility] - [facility] 07/12/2024 11:17:16 10/12/2024 text/html ROS as [...] drainage since Josh. ADIA CONTRERAS MD 100 [facility] [address], [place], [address], [facility] - [facility] 10/12/2024 13:02:27 OBGyn Episode No OBEpisode recorded.
--- OUTSIDE RECORDS SUMMARY | 2025-08-30 10:52 | XMS_ITS | Clinical Summary ---
Author Organization [facility] Address [facility] [employer] [address] [address] Phone Care Team Providers Care Manager Meat Name Role Phone Reuben Paez NP Primary [...] Refills, Maintenance, 10/05/24 4:38:00 PM EST, [id number], Partial fill upon patient request if the [...] Description 12/23/2025 12:30 PM EDT Office Visit [facility] [address] [place] [address] Reuben New MD [address] [place] [address] [email or web address] Health Maintenance Due Date Last Done Comments [...] topic Medical Devices Not on file Insurance [facility] CHOICE [facility] CHOICE CHOICE [facility] CHOICE CHOICE [facility] [place] [address] [place] [address] [facility] [place] [address] CHOICE [place]SE [place] [id number] [facility] [place] [address] [address] [place] [address] [place] [address] [address] [address] [place] [address] [facility] [place] [address] [facility] [place] [address] [facility] CHOICE [place] [phone] Care Teams Manager Meat Relationship Specialty Start Date End Date Reuben Paez NP [address] [facility] [place] [address] PCP - General Family Medicine 08/31/21 Additional Source Comments The information contained in this document represents components of the legal health record. It is not the complete legal health record.[facility]
--- OUTSIDE RECORDS SUMMARY | 2025-08-30 10:52 | XMS_ITS | Patient Health Record ---
[facility] Organization [facility] Address [address] [place] [address] Care Team Providers Care Air Conditioning Installer Supervisor Name Role Phone Reuben Fernandes Primary Care Provider UnaTomasa Randolph Unavailable [phone] Jeff Snider Unavailable [phone] Cuco Ryder Unavailable [phone] Allergies Allergen (clinical drug ingredient) Drug/Non Drug [...] Range Notes HEMOGLOBIN A1C (GLYCOHEMOGLO BIN) Reviewed date:01/17/2025 03:55:07 PM Interpretation: Performing Lab: Notes/Report: HEMOGLOBIN A1C % (HH) 8.2 Reason For Referral No Information Medications Medication SIG (Take, Route, Frequency, Duration) Notes Start Date End Date Status Jardiance 25 MG 1 tablet Orally Once a day Active Lisinopril 20 MG 1 tablet Orally Once a day Active NovoLOG Active glipiZIDE 10 MG 1 tablet 30 minutes before breakfast Orally Once a day Not-Taking Trulicity 4.5 MG/0.5ML as directed Subcutaneous Not-Taking Tresiba Not-Taking Ozempic Not-Taking Walking Boot/Pneumatic As directed Wear Daily; Duration: Until further notice Not-Taking Nexlizet 180-10 MG 1 tablet Orally Once a day Not-Taking Metoprolol Succinate 50 MG 1 capsule Orally Once a day Active Extra Depth Orthopedic Shoes (1 Pair) with Customized Heat Molded Multidensity Innersoles (3 Pair) as directed Dx: NIDDM/Polyneuropathy (E11.42), Hammertoe Foot Deformity (M20.41,M20.42), Preulcerative Skin Lesion(s) (L85.1 01/17/2025 Active Immunizations Vaccine Route Administration Date Status Comme nts Influenza Unknown 03/14/2024 Refused Social History Tobacco Use: Social History Observation Description Date Details (start date - stop date) Never Smoker NA - NA Tobacco use other than smoking: Question Answer Notes Are you an other tobacco user? No Tobacco Control (Standard) Question Answer Notes Tobacco use: Nonsmoker Additional Findings: Tobacco non-user Current no nsmoker AUDIT-C (Standard) Question Answer Notes Did you have a drink containing alcohol in the p ast year? No Points 0 Interpretation Negative Problems Problem Type SNOMED Code ICD Code Onset Dates Problem Status W/U Status Risk Notes Problem Acquired hammer toe of right foot (2773026387304950 ) Other hammer toe(s) (acquired), right foot (M20.41) Active confirmed Problem Acquired hammer toe of left foot (6936301872679885 ) Other hammer toe(s) (acquired), left foot (M20.42) Active confirmed Problem Polyneuropathy due to type 2 diabetes mellitus (228144242) Type 2 diabetes mellitus with diabetic polyneuropathy (E11.42) Active confirmed Problem Plantar fasciitis of left foot (4160737471057470 1) Plantar fasciitis of left foot (M72.2) Active confirmed Problem Interstitial myositis (79664458) Interstitial myositis of left foot (M60.172) Active confirmed Vital Signs Blood pressure diastolic 65 mm Hg 02/01/2025 Height 5ft5in in 02/01/2025 Blood pressure systolic 130 mm Hg 02/01/2025 Weight 243 lbs 02/01/2025 BMI 40.43 kg/m2 02/01/2025 Procedures Procedure Date Ordered Date Performed Result Body Sit e 17236-RDLOGOE NAIL, 6 OR MORE 01/17/2025 N/A Encounters Encounter Location Date Provider Diagnosis [facility] [place] [address] [place] [address] 01/17/2025 Tomasa Calderón Other hammer toe(s) (acquired), right foot M20.41 ; Other hammer toe(s) (acquired), left foot M20.42 ; Type 2 diabetes mellitus with diabetic polyneuropathy E11.42 and Tinea unguium B35.[address] [facility] [address] 02/01/2025 Cuco Britni Pain in left foot M79.672 ; Plantar fasciitis of left foot M72.2 ; Calcaneal spur, left foot M77.32 ; Interstitial myositis of left foot M60.172 ; Bursitis of left foot M77.52 and Type 2 diabetes mellitus with diabetic polyneuropathy E11.[address] [address] 01/30/2025 Tomasa Calderón [address] [address] 03/14/2025 Tomasa Calderón [address] [address] 03/28/2025 Tomasa Calderón Assessments Encounter Date Diagnosis (ICD Code) Assessment Notes Treatment Notes Treatment Clinical Notes Section Notes 01/17/2025 Other hammer toe(s) (acquired), right foot (ICD-10 - M20.41) Patient Educated with: DIABETIC FOOT CARE INSTRUCTIONS. pdf (DIABETIC FOOT CARE INSTRUCTIONS. pdf) 01/17/2025 Other hammer toe(s) (acquired), left foot (ICD-10 - M20.42) 02/01/2025 Pain in left foot (ICD-10 - M79.672) 02/01/2025 Plantar fasciitis of left foot (ICD-10 - M72.2) Patient Educated with: HEEL CORD STRETCHES.pdf (HEEL CORD STRETCHES.pdf ) Patient Educated with: RICE THERAPY.pdf (RICE THERAPY.pdf) 02/01/2025 Calcaneal spur, left foot (ICD-10 - M77.32) 01/17/2025 Type 2 diabetes mellitus with diabetic polyneuropathy (ICD-10 - E11.42) 02/01/2025 Interstitial myositis of left foot (ICD-10 - M60.172) 01/17/2025 Tinea unguium (ICD-10 - B35.1) 02/01/2025 Bursitis of left foot (ICD-10 - M77.52) 02/01/2025 Type 2 diabetes mellitus with diabetic polyneuropathy (ICD-10 - E11.42) Plan Of Treatment Pending Test Test Name Order Date X ray : Foot, left 3V 02/01/2025 69232-PAWIHOW NAIL, 6 OR MORE 01/17/2025 94327-EDYW SKIN LESIONS, OVER 4 11/29/19 24 Next Appt Details Provider Name:Tomasa Moreira diego, 01/16/2026 03:45:00 PM, [address] [place], [address], Insurance Providers Payer Name Payer Address Payer Phone Subscriber Number Group Number Insured Name Patient Relationship to Insured Coverage Start Date Coverage End Date [facility] ([facility] [address] [place] [phone] [id number] Horacio Manriquez Spouse - patient is the spouse of the insured Medical (General) History Medical History History ICD Code covid-19 Back,Hip,and Knee pain Broken bones Measles Mumps Chicken pox Joint implants/screws High blood pressure Hiatal hernia Reflux ( GERD) Sciatica sinusitis Surgical History Surgery Date(Month/Year) knee replacement, right 07/01/23 Gall bladder removal hernia
--- OUTSIDE RECORDS SUMMARY | 2025-08-30 10:52 | XMS_ITS | Patient Health Record ---
Author Organization [facility] Address [address] [place] [address] Care Team Providers Care Scheduler Maintenance Name Role Phone Saran (RETIRED) aJnn ABEL Primary Care Provide Rangel Galeano Unavailable [phone] Allergies Allergen (clinical drug ingredient) Drug/Non Drug Allergy documented on EMR Reaction Allergy Type Onset Date Status codeine Codeine Sulfate Unknown Drug Allergy A ctive Penicillin Unknown Drug Allergy Active Reason For Referral No Information Medications Medication SIG (Take, Route, Frequency, Duration) Notes Start Date End Date Status Suprep Bowel Prep 1 kit Solution as directed Orally as directed; Duration: 1 dose 08/16/2015 Active Metoprolol Succinate ER 50 MG Tablet Extended Release 24 Hour 1 tablet Orally Active Lisinopril 10 MG Tablet 1 tablet Orally Once a day Active Levemir 50 UNITS TWICE A DAY A ctive Hyoscyamine Sulfate 0.125 MG Tablet 1 or 2 Orally every 4-6 hours prn abdominal cramps/bloating; Duration: 30 days 08/13/2015 Active glipiZIDE 10 MG Tablet 1 tablet Orally T WICE A DAY Active metFORMIN HCl 1000 MG Tablet 1 tablet with meals Orally Twice a day Active Social History Social History Additional Details Category Social Info Options Details Miscellaneous: Marital status: 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 Section Notes: Nonsmoker; no sig alcohol Problems Problem Type SNOMED Code ICD Code Onset Dates Problem Status W/U Status Risk Notes Problem Screening for malignant neoplasm of colon (127265761) Encounter for screening for malignant neoplasm of colon (Z12.11) Active confirmed Problem Diarrhea (37992689) Diarrhea (R19.7) Active confirmed Problem Irritable bowel syndrome with diarrhea (862209697) Irritable bowel syndrome with diarrhea (K58.0) Active confirmed Problem Screening for malignant neoplasm of rectum (892417858) Encounter for screening for malignant neoplasm of rectum (Z12.12) Active confirmed Plan Of Treatment Pending Test Test Name Order Date GI BIOPSY 11/03/2015 Future Test Test Name Order Date COLONOSCOPY 08/13/2015 Insurance Providers Payer Name Payer Address Payer Phone Subscriber Number Group Number Insured Name Patient Relationship to Insured Coverage Start Date Coverage End Date [facility] [address] [place] [address] [id number] KAVON CERVANTES Self - patient is the insured Medical (General) History Medical History History ICD Code IDDM Hypertension Denies UT,CVA,Lung disease,renal disease GERD--EGD many yrs ago-no si g. findings by her report--asymptomatic presently IBS--frequent urgency and loose stools a lternating with constipation Surgical History Surgery Date(Month/Year) cholecystectomy 01/2000 hernia repair-umbilical 09/2013 2 C-sections hysterectomy 11/2007 Breast reduction
[2025-08-30 14:20] LABS: MANUAL DIFF FLAG NO
[2025-08-30 14:22] LABS: Appearance Urine Clear; Glucose Urine UA >=1000 mg/dL (Negative); PH 5.0 (5.0-9.0); Specific Gravity - Urine >= 1.030 (1.005-1.025); UMIC TRIGGER UACC YES
[2025-08-30 14:29] LABS: Hematocrit 45.6 % (37.0-47.0); Hemoglobin 15.1 g/dl (12.0-16.0); Imm Gran Abs Auto 0.01 X10*3/uL (0.00-0.03); Imm Gran Pct Auto 0.2 % (0.0-0.4); Lymphocytes Absolute Auto 1.8 X10*3/uL (1.2-4.9); Mean Corpuscular HGB Conc 33.1 g/dl (31.0-35.0); Mean Corpuscular Hemoglobin 29.1 pg (27.0-33.0); Mean Corpuscular Volume 87.9 fL (80.0-98.0); NRBC Abs Auto 0.000 X10*3/uL (0.0-0.012); NRBC Pct Auto 0.0 /100WBC (0.0-0.2); Platelet Count 229 X10*3/uL (160-400); Red Blood Count 5.19 X10*6/uL (4.20-5.50); White Blood Count 6.6 X10*3/uL (4.8-10.8)
[2025-08-30 14:47] LABS: Alanine Aminotransferase 33 U/L (0-31); Albumin Level 4.6 g/dL (3.5-5.0); Alkaline Phosphatase 89 U/L (39-117); Anion Gap 15 (12-20); Aspartate Amino Transferase 33 U/L (5-31); Blood Urea Nitrogen 14 mg/dL (9-16); Calcium 9.6 mg/dL (8.4-10.2); Carbon Dioxide 20 mmol/L (22-29); Chloride 111 mmol/L (96-108); Cholesterol 187 mg/dL (<200); Estimated Glomerular Filt Rate > 60; HDL Cholesterol 31 mg/dL (>40); Potassium 4.3 mmol/L (3.3-5.1); Sodium 142 mmol/L (135-145); Total Protein 7.8 g/dL (6.5-8.0); Triglycerides 248 mg/dL (<150)
[2025-08-30 16:08] LABS: Microalbum/Creatinine Ratio Ur 13.0 ug/mg cr (<30)
== END 2025-08-30 10:50 | disposition home or self-care (01) ==
LOC: HO.HMGCLDS 10:49
PROVIDERS: PCP Nurse Practitioner Family; Visit Provider Nurse Practitioner Family
DX: E11.9 Type 2 diabetes mellitus without complications (principal)
CPT/HCPCS: 36415; 80053; 80061; 81001; 82043; 82533; 82570; 84443; 85025

== ENCOUNTER 2025-09-03 06:38 | Outpatient (REF) | payer OTHER, SELFPAY ==
--- OUTSIDE RECORDS SUMMARY | 2025-09-03 06:41 | XMS_ITS | Data Portability ---
Author Organization [place] - [facility] Address [address] [address] Care Team Providers Care Airfreight Operations Agent Name Role Phone ARLEENKALLIE OLVERA Primary Care Provider [phone] Assessment Encounter Date Assessment Date Assessment LastModified [...] doxycycline hyclate 100 mg tablet 2024 025 [facility][id number], [address] [facility] , [place], [address], 12:11:47 Patient TargetsNo targets recorded. Patient InstructionsNo [...] Address Organization Details Recorded Time Bilateral tinnitus 54794705519 02 Active 2020 Tinnitus, bilateral ; Note: Date Diagnosed : 9:41 AM (H93.13) Not Available [facility] 4 02:32:07 Sensorine ural hearing loss of bilateral ears 754984476 Active 2020 Sensorine ural hearing loss, bilateral ; Note: Date Diagnosed : 9:41 AM (H90.3) Not Available [facility] 4 02:31:58 Mass of neck 714645490 Active 2020 Localized swelling, mass and lump, neck; Note: Date Diagnosed : 1 9:41 AM (R22.1) Not Available [facility] 4 02:31:56 Neck swelling 745609887 Active 2020 Localized swelling, mass and lump, neck; Note: Date Diagnosed : 9:41 AM (R22.1) Not Available [facility] 4 02:31:56 Hypertrop hy of nasal turbinate s 83414182 Active 2023 ÁNGEL JAVIER MD [address] [place] [address], [place], [address] , [facility] - [facility] 4 11:15:41 Acute maxillary sinusitis 37877904 Active 2024 ANDERSON DOSHI PA-C [address] [facility],[place] [address], [facility] [place], [address] , [place] - [facility] 5 12:11:26 Problem Notes None recorded. Procedures Surgical History Date Name Laterality Status Provider Name and Address Organization Details Recorded Time 10/12/2024 Comp Audio with Tymps - 58523 & 06885 completed CHANTAL CAREY MA, CCC-A [address] [facility], [place], [address], [facility] - [facility] 10/12/2024 11:46:04 Imaging Results None recorded. Procedure Notes None recorded. Medical Equipment None Reported. Allergies Allergen ID Allergen Name Allergen Category Reaction Reaction Severity Criticality Documentation Date Start Date Code Code System Note Provider Name and Address Organization Details Recorded Time 53652 codeine medicatio n other Not available Not available 02/14/2024 2670 RxNorm React ion: Unkno wn; Not Available [facility] 4 00:56:34 15189 Penicilli n Not available other Not available Not available 02/14/2024 62830 RxNorm React ion: Unkno wn; Not Available [facility] 4 00:56:35 05050 Substance with sulfonami de structure and antibacte rial mechanism of action (substanc e) medicatio n nausea Not available Not available 02/14/2024 84179 8003 SNOMED React ion: vomit ing;; Not Available [facility] 4 00:56:36 Medications Name Sig [...] 24 hr 07/12 completed Medicati on ID: [id number] B rand Name: glipizid e Send Method: [...] Available Not Available Not Available Dexcom G7 Car Checker USE DIRECTED FOR DIABETES CONTROL active Not [...] Updated DateTime 10/12/2024 165.1 cm 40.1 kg/m2 743687.76 g Craig Jacobo [facility] 10/12/2024 11:11:52 Date Recorded Body height Body mass index (BMI) Body weight Provider Name and Address Organization Details Last Updated DateTime 07/12/2024 165.1 cm 40.1 kg/m2 161938.76 g Radhika Dubois [facility] 07/12/2024 10:55:11 Social History None recorded. Functional Status None recorded. Mental Status None recorded. Family History Nothing Reported. Medical History Condition Response Hearing Loss Y Gynecological HistoryNo gynecological history recorded. Obstetrics History GPAL:G 0 P 0 0 0 0 Past Encounters Encounter ID Performer Location Encounter Start Date Encounter Closed Date Diagnosis/Indication Diagnosis SNOMED-CT Code Diagnosis ICD10 Code Diagnosis IMO Codes Diagnosis Note [id number] ÁNGEL JAVIER MD [facility] [address] [address] 07/12/2024 09:56:07 07/12/2024 11:17:19 Hypertrophy of nasal turbinates 05437787 J34.3 Bilateral tinnitus 70500 30211 102 H93.13 [id number] ANDERSON DOSHI PA-C [facility] [address] [address] 10/12/2024 10:51:01 10/12/2024 12:10:02 Bilateral tinnitus 4556144877 102 H93.13 Sensorineu ral hearing loss of bilateral ears 466858208 H90.3 Audiologic al evaluation results:Ri ght ear:Normal / borderline normal hearing thru 2000Hz sloping to a mild SNHL with excellent word recognitio n.Left ear:Normal hearing with excellent word recognitio n. Tympanomet ry:Right Ear:Type AdLeft Ear:Type Ad Acute maxi llary sinusitis 71602347 J01.00 Health Concerns Section Related Observation LastModified by Organization Detai ls LastModified Time None Recorded Concern Status LastModified by Organization Details LastModified Time None Recorded Advance Directives Directive None Recorded Payers Insurance Date Sequence Insurance Name Policy Number Policy Tipton Covered Member ID Tipton Member ID Guarantor Name 11/07/2024 1 [facility] IN[facility] (PPO) [id number] 1 oHracio Meraz [id number] Annie Meraz 07/12/2024 1 [employer] [facility] (MEDICARE REPLACEMENT/ ADVANTAGE - HMO) Annie Meraz [id number] Annie Meraz 07/12/2024 1 [employer] [facility] IN[facility]MN[facility]AN (INDEMNITY) [id number] 1 Horacio Meraz [id number] Annie Meraz Notes Date Note Type Note [...] parotitis, chronic tinnitus ÁNGEL JAVIER MD [address] [facility],[place] [address], [place], [address], [facility] - [facility] 07/12/2024 11:17:16 10/12/2024 text/html ROS as noted [...] drainage since Josh. ADIA CONTRERAS MD [address] [facility], [place], [address], [facility] - [facility] 10/12/2024 13:02:27 OBGyn Episode No OBEpisode recorded.
--- OUTSIDE RECORDS SUMMARY | 2025-09-03 06:41 | XMS_ITS | Clinical Summary ---
Author Organization [facility] Address [facility] [address] [address] Phone Care Team Providers Care Registered Nurse Hh Case Manager Name Role Phone Reuben Paez NP Primary [...] Refills, Maintenance, 10/05/24 4:38:00 PM EST, [id number], Partial fill upon patient request if the [...] Description 12/23/2025 12:30 PM EDT Office Visit [facility] [address] [place] [address] Reuebn New MD [address] [place] [address] [email or web address] Health Maintenance Due Date Last Done Comments [...] topic Medical Devices Not on file Insurance [facility] CHOICE [facility] CHO[facility] CHO[facility] [place] [address] [place] [address] [facility] [place] [address] [address] [place] [id number] [facility] [place] [address] [place] [address] [place] [address] [facility] [place] [place] [address] [facility] [place] [address] [facility] CHOICE [place] [phone] Care Teams Registered Nurse Hh Case Manager Relationship Specialty Start Date End Date Reuben Paez NP [address] [facility] [place] [address] PCP - General Family Medicine 08/31/21 Additional Source Comments The information contained in this document represents components of the legal health record. It is not the complete legal health record.[facility]
[2025-09-03 10:11] LABS: Appearance Urine Clear; Glucose Urine UA >=1000 mg/dL (Negative); PH 5.0 (5.0-9.0); Specific Gravity - Urine >= 1.030 (1.005-1.025); UMIC TRIGGER UACC YES
[2025-09-03 11:00] LABS: HBS Num1 1.54 mIU/mL (0-7.99); HBc Num1 0.06 S/CO (0.00-0.79); HBsAGNum1 0.34 S/CO (0.00-0.99); Hepatitis A Antibody IgM 0.17 Index (0-0.79); Hepatitis B Surface Antigen Negative (Negative); ~HepC Num1 0.06 S/CO (0.00-0.79); ~Hepatitis A Antibody IgM Nonreactive (Nonreactive); ~Hepatitis B Surface Antibody NONREACTIVE (Nonreactive); ~Hepatitis C Antibody Nonreactive (Nonreactive)
== END 2025-09-03 06:39 | disposition home or self-care (01) ==
LOC: HO.HMGCLDS 06:38
PROVIDERS: PCP Nurse Practitioner Family; Visit Provider Nurse Practitioner Family
DX: R74.8 Abnormal levels of other serum enzymes (principal)
CPT/HCPCS: 36415; 81001; 86015; 86381; 86704; 86706; 86709; 86803; 87340

== ENCOUNTER 2025-09-10 10:47 | Outpatient (REF) | payer OTHER, SELFPAY ==
--- NOTE | ~2025-09-10 | CT_ITS ---
EXAMINATION: CTA NECK WITH CONTRAST (STROKE) CTA BRAIN WITH CONTRAST (STROKE) CLINICAL INFORMATION: R 20.0. Anesthesia of skin. COMPARISON: Correlated to CT soft tissue neck dated May 19, 2021. TECHNIQUE: CTA of the head and neck was performed in the axial plane from the mediastinum to the skull vertex using 70 mL Omnipaque 350 intravenous contrast. Additional reformatted multiplanar images including maximum intensity projection MIP images are generated on the CT workstation. This CT examination was performed using dose optimization techniques as appropriate, variously including the following: *Automated exposure control *Adjustment of mA and/or kV according to patient size (this includes techniques or standardized protocols for targeted exams where dose is matched to indication/reason for exam; i.e. extremities or head) *Use of iterative reconstruction technique DLP: 1680 mGy-cm FINDINGS: The degree of stenosis determined by criteria similar to NASCET. Brain: No acute intracranial hemorrhage, mass effect, midline shift, hydrocephalus or herniation. Diez-white matter differentiation is normal. No increased density in the MCA. Posterior cranial fossa contents demonstrated no acute hemorrhage or mass effect. No air-fluid levels in the paranasal sinuses. Tympanic cavities and mastoid cells are aerated. Chest CTA: No aneurysm or dissection. Main pulmonary artery and its main left and right branches are patent without intraluminal filling defects. Neck CTA: Right CCA: Normal patency. No focal stenosis. No intimal flap. Right ICA: Normal patency. No focal stenosis. No intimal flap. Left CCA: Normal patency. No focal stenosis. No intimal flap. Left ICA: Normal patency. No focal stenosis. No intimal flap. Tortuosity in the proximal segment.. V1/V2 segments: Normal patency. No focal stenosis. No intimal flap. Both orientating from the subclavian arteries. Codominant Brain CTA: . Anterior cerebral circulation: ICAs: Normal patency. No focal stenosis. No abrupt cut off. No vascular abnormality. MCA's: Normal patency. No focal stenosis. No abrupt cut off. Bifurcation/trifurcation demonstrated no gross abnormality. ACAs: Normal patency. No focal stenosis. No abrupt cut off. Anterior communicating artery is patent without gross abnormality. Ophthalmic arteries are patent without vascular abnormality. The posterior communicating arteries are not fully evaluated. Posterior cerebral circulation: V3/V4 segments are patent without focal stenosis or intimal flap. Basilar artery is patent without focal stenosis or intimal flap. Anterior inferior cerebral arteries and posterior inferior cerebral arteries are patent. Superior cerebellar arteries are patent without gross abnormality. baker: Normal patency. No focal stenosis. No abrupt cut off. No vascular abnormality. Ancillary findings: Heterogeneous prominent thyroid gland without dominant nodule. Bilateral prominent cervical lymph nodes, nonspecific. Pulmonary mosaic pattern. Multilevel cervical spondylosis pronounced at C4-5 and C6-[address]/CT angio head neck IMPRESSION: No main cerebral artery occlusion or embolus. No high degree stenosis or dissection. No gross cerebral aneurysm. This critical test result is communicated to: Requested nurse practitioner, Reuben Paez via [employer] on September 20, 2025 at 1:00 PM. Electronically signed by: Trace Wallace MD 09/10/2025 01:12 PM [facility]
[2025-09-10] MEDS: iohexoL 350 MG/ML 100 ML INFUS..BTL 70 ML IV (12:53)
== END 2025-09-10 10:48 | disposition home or self-care (01) ==
LOC: HO.CT 10:47
PROVIDERS: PCP Nurse Practitioner Family; Visit Provider Nurse Practitioner Family
DX: R20.0 Anesthesia of skin (principal)
CPT/HCPCS: 70496; 70498; Q9967

== ENCOUNTER → 2025-09-10 10:50 | Outpatient (BNV) | payer OTHER, SELFPAY | PROVIDERS: PCP Nurse Practitioner Family; Visit Provider Radiology Diagnostic Radiology | DX: R20.0 Anesthesia of skin (principal) | CPT/HCPCS: 70496; 70498 ==